=== PATIENT | female | born 1955 | race Caucasian/White ===

== ENCOUNTER 2019-03-30 07:34 | Emergency (ER) | payer OTHER, SELFPAY ==
--- NOTE | ~2019-03-30 | XR_ITS ---
EXAMINATION: XR chest 1V portable DATE: 03/30/2019 09:14 INDICATION: Weakness. TECHNIQUE: A single frontal view of the chest was obtained. COMPARISON: Chest single view 04/23/2015 FINDINGS: There is mild atelectasis at left lung base. No pleural effusion or pneumothorax. The heart size is normal. There are bilateral shoulder arthroplasties. There are changes of posterior fusion p rocedure in cervicothoracic spine. There are changes of vertebroplasty at multiple levels in the spin e. There are surgical clips in the abdomen. IMPRESSION: 1. Mild atelectasis at left lung base. Reviewed, dictated and finalized at location A. CTOR OF PHYSICAL EDUCATION
--- NOTE | ~2019-03-30 | XR_ITS ---
EXAMINATION: XR tibia fibula RT 2V DATE: 03/30/2019 09:14 INDICATION: Right lower leg cellulitis. TECHNIQUE: 2 views of right tibia and fibula on 4 radiographs were obtained. COMPARISON: Right knee radiographs 03/01/2011 FINDINGS: There is a total right knee arthroplasty with patellar resurfacing. There is 8 degrees post erior angulation of tibia with respect to the tibial component. No fracture. No periprosthetic lucenc y to suggest loosening or infection. Other joint spaces are normal. No knee joint effusion. IMPRESSION: 1. Unchanged total right knee arthroplasty. Reviewed, dictated and finalized at location A. ARIAN HEAD
--- NOTE | ~2019-03-30 | US_ITS ---
EXAMINATION: US venous doppler LE RT DATE: 03/30/2019 09:55 INDICATION: Right lower limb pain. TECHNIQUE: Grayscale ultrasound images without and with compression and Doppler ultrasound images of the right lower extremity veins were obtained. COMPARISON: None. FINDINGS: The visualized portions of right common femoral vein, profunda (deep) femoral vein, femoral vein, pop liteal vein, peroneal veins, posterior tibial veins, and greater saphenous vein outflow are patent. IMPRESSION: 1. No deep venous thrombosis. Reviewed, dictated and finalized at location A. S TRAINING REPRESENTATIVE
[2019-03-30 07:29] VITALS: BP 111/85; PULSE 86; RESP 16; TEMP 36.5; O2SAT 97
[2019-03-30 08:00] VITALS: BP 136/76; PULSE 84; RESP 20; O2SAT 99
--- NOTE | 2019-03-30 08:18 | ECG_ITS ---
Measurements Intervals [place] Rate: 86 P: 46 NE: 133 QRS: -33 QRSD: 90 T: 60 QT: 377 QTc: 452 Interpretive Statements SINUS RHYTHM LEFT AXIS DEVIATION BORDERLINE T WAVE ABNORMALITY- ANTERIOR LEADS BASELINE ARTIFACT- I, II, III BORDERLINE ECG Electronically Signed On 03-30-2019 9:28:04 DIRECTOR CAREER SERVICES by Chele Hughes D.O.
--- NOTE | 2019-03-30 08:19 | ECG_ITS ---
Measurements Intervals [place] Rate: 82 P: 48 GA: 143 QRS: 22 QRSD: 87 T: 67 QT: 342 QTc: 401 Interpretive Statements SINUS RHYTHM BORDERLINE T WAVE ABNORMALITY- ANTERIOR LEADS BASELINE ARTIFACT- I, II, III, AVR, AVL, AVF, V4-V5 BORDERLINE ECG Electronically Signed On 03-30-2019 9:28:49 GERIATRICIAN by Chele Hughes D.O.
--- NOTE | 2019-03-30 08:48 | ED.NEUROSD ---
HPI - Neuro Symptoms/Deficit General Chief Complaint: Neuro Symptoms/Deficit Stated Complaint: headache/weakness Time Seen by Provider: 03/30/19 07:39 Source: patient, family (Pt's sister and brother) and RN notes reviewed Mode of arrival: EMS Limitations: no limitations History of Present Illness HPI Narrative: Pt is a 63 y/o female presenting to the ED via EMS c/o shaking. Pt reports she started feeling bad and shaking yesterday per pt's brother. Pt states she has a Hx's of Sz's, but pt's sister at bedside reports the pt continuously shaking, bilateral thigh pain, and throat pain is abnormal for the pt. Pt notes she sees Neurologist Dr. Joselito Guzman for her Sz's and states chronically takes Lamotrigine. Pt's sister also reports the pt experiencing congestion for a few days and RLE erythema, but pt denies N/V or CP. Per sister, the pt has not had a recent medication change, and states the pt has never had this pain before. Pt states she is normally able to ambulate at home. Per sister, the pt's PCP is Dr. Jaffe. Onset (ago): unknown (Yesterday) Timing confirmed by: family member (Brother) History of same: No Associated symptoms: other (Bilateral thigh pain (per sister); throat pain (per sister); shaking; congestion (per sister); RLE erythema (per sister)) Related Data Home Medications Medication Instructions Recorded Confirmed Adult Probiotic 03/30/19 Centrum Silver Women 03/30/19 [place] Calcium-Vitamin D3 03/30/19 aspirin 03/30/19 atorvastatin 03/30/19 citalopram mg 03/30/19 lamotrigine 03/30/19 metronidazole 03/30/19 omeprazole 03/30/19 tofacitinib [Xeljanz XR] mg PO 03/30/19 Allergies Allergy/AdvReac Type Severity Reaction Status Date / Time gold Au 198 Allergy Mild Unknown Verified 03/30/19 08:13 Quinolones Allergy Mild Unknown Verified 03/30/19 08:13 ciprofloxacin [From Cipro] Allergy Unknown Verified 03/30/19 09:17 hydroxychloroquine Allergy Unknown Verified 03/30/19 09:17 sulfasalazine Allergy Unknown Unknown Verified 03/30/19 08:13 leflunomide AdvReac Unknown CONFUSION, Verified 03/30/19 08:13 GI UPSET Sulfa (Sulfonamide AdvReac Unknown NAUSEA Verified 03/30/19 08:13 Antibiotics) Review of Systems Review of Systems: Narrative: CONSTITUTIONAL: Reports shaking. ENT: Reports congestion (per sister). CARDIOVASCULAR: Denies chest pain. GASTROINTESTINAL: Denies nausea or vomiting. SKIN: Reports RLE erythema (per sister). MUSCULOSKELETAL: Reports bilateral thigh pain (per sister) and throat pain (per sister). All systems reviewed & are unremarkable except as noted in HPI and below PMFSH Past Medical History Medical History Anemia Bronchitis Depression Diverticulitis GERD (gastroesophageal reflux disease) History of osteoporosis HLD (hyperlipidemia) HTN (hypertension) Kidney stones Migraine Ovarian cancer Rheumatoid arthritis Seizures UTI (urinary tract infection) Surgical History Surgical History H/O breast augmentation H/O wrist surgery H/O: hysterectomy Hx of bilateral hip replacements Social History Social History Smoking status: Unknown if ever smoked Exam Narrative: Exam Narrative: GENERAL: Well-appearing, well-nourished, and in no acute distress. EYES: EOMI. ENT: Dry mucous membranes. NECK: Supple. CHEST: Clear to auscultation. No respiratory distress. HEART: Regular rate and rhythm. No murmur heard. Normal peripheral pulses. ABDOMEN: Soft, nontender, nondistended, normal active bowel sounds. EXTREMITIES: Spasming of the BLE and BUE. Tenderness to bilateral thighs. SKIN: Warm and dry. Erythema to RLE with [id number] - no vesicles or blisters. NEURO: No focal deficits. Alert and oriented. Tremulous. Course Course Emergency Course: Patient was assessed for tremulous activity, intermittent confusion and possible seizure activity.
[2019-03-30 09:00] VITALS: BP 129/63; PULSE 79; RESP 20; O2SAT 99
[2019-03-30] MEDS: SODIUM CHLORIDE 0.9% IV 1,000 ML 999 ML IV CONT (09:20)
[2019-03-30] MEDS: LORAZEPAM INJ 2 MG/ML VIAL 1 MG IV PUSH (09:24)
[2019-03-30 10:10] LABS: Basophils Percent Auto 0.3 % (0.2-1.2); Eosinophils Percent Auto 0.1 % (0-4.4); Hemoglobin 12.1 g/dL (12.0-15.0); Immature Granulocyte Absolute 0.03 K/mm3 (0.00-0.031); Immature Granulocyte Percent A 0.3 % (0-0.5); Lymphocytes Absolute Auto 0.96 K/mm3 (0.9-3.2); Lymphocytes Percent Auto 9.6 % (18.3-44.2); Mean Corpuscular HGB Conc 31.8 g/dl (32-36); Mean Corpuscular Hemoglobin 29.7 pg (26-34); Mean Corpuscular Volume 93.4 fl (80-100); Mean Platelet Volume 9.2 fl (7.4-10.4); Monocytes Absolute Auto 0.7 K/mm3 (0.1-0.6); Monocytes Percent Auto 6.5 % (2.6-8.5); Neutrophils Absolute Auto 8.3 K/mm3 (1.3-6.7); Neutrophils Percent Auto 83.2 % (45.5-73.1); Platelet Count Result 250 k/mm3 (150-375); Red Blood Count 4.07 M/mm3 (4.2-5.4); Red Cell Distribution Width 13.6 % (11.5-14.5)
[2019-03-30 10:31] LABS: Blood Urea Nitrogen 12 mg/dL (7-17); Calcium 8.2 mg/dL (8.4-10.2); Carbon Dioxide 21 mmol/L (22-30); Chloride 103 mmol/L (98-107); Estimated CRCL calculation 54 ml/min; Estimated Glomerular Filt Rate > 60; Glucose 89 mg/dL (65-105); Potassium 3.7 mmol/L (3.4-5.0); Sodium 134 mmol/L (137-145)
[2019-03-30 10:54] LABS: Erythrocyte Sedimentation Rate 27 mm/hr (0-20)
[2019-03-30 11:01] LABS: Creatine Kinase 65 U/L (30-135)
[2019-03-30 11:10] VITALS: BP 125/65; PULSE 89; RESP 16; O2SAT 95
[2019-03-30 12:13] VITALS: BP 115/68; PULSE 89; RESP 17; O2SAT 95
--- NOTE | 2019-03-30 13:36 | PC.NURSE ---
Attempted to straight cath this pt but was unsuccessful. Per pts sister pt had just wet the bed prior to me coming in .
[2019-03-30] MEDS: CEPHALEXIN 500 MG CAPSULE PO (14:40)
[2019-03-30 14:41] VITALS: BP 115/66; PULSE 79; RESP 14; O2SAT 99
[2019-04-02 19:17] LABS: Lamotrigine Lamictal 10.2 mcg/mL (4.0-18.0)
== END 2019-03-30 15:14 | disposition home or self-care (01) ==
PROVIDERS: Emergency Provider Emergency Medicine
DX: G40.909 Epilepsy, unspecified, not intractable, without status epilepticus (principal); L03.115 Cellulitis of right lower limb; F32.9 Major depressive disorder, single episode, unspecified; K21.9 Gastro-esophageal reflux disease without esophagitis; E78.5 Hyperlipidemia, unspecified; I10 Essential (primary) hypertension; Z87.442 Personal history of urinary calculi; Z85.43 Personal history of malignant neoplasm of ovary; M06.9 Rheumatoid arthritis, unspecified; Z87.440 Personal history of urinary (tract) infections; M81.0 Age-related osteoporosis without current pathological fracture; D64.9 Anemia, unspecified; Z96.643 Presence of artificial hip joint, bilateral; R91.8 Other nonspecific abnormal finding of lung field; Z96.651 Presence of right artificial knee joint; Z79.82 Long term (current) use of aspirin; R94.31 Abnormal electrocardiogram [ECG] [EKG]
CPT/HCPCS: 36415; 71045; 73590; 80048; 80175; 82550; 85025; 85652; 86140; 93005; 93971; 99284; A9270; J0131; J1200; J2060; J7030

== ENCOUNTER 2021-02-16 01:28 | Observation (INO) | payer MEDICARE, SELFPAY ==
[2021-02-16] VITALS (9 sets, daily range): BP systolic 130–145; BP diastolic 61–86; PULSE 65–106; RESP 12–23; TEMP 35.8–36.9; O2SAT 88–100; BMI 22.4
--- NOTE | ~2021-02-16 | CT_ITS ---
EXAMINATION: CT brain wo con DATE: 02/16/2021 13:32 INDICATION: Severe headaches TECHNIQUE: Computed tomography (CT) of the head was performed without intravenous contrast. The mA wa s adjusted according to patient size. Iterative reconstruction technique was employed. Exam dose: 52 9.67 mGy-cm total exam DLP. COMPARISON: 10/15/2014, 12/25/2009 CT brain examinations FINDINGS: There is a subtle streak artifact at the posterior fossa from occipital plate and screws No fracture or bone destruction of the cranial vault is detected. The mastoid air cells and included paranasal sinuses are normally aerated. No fracture or bone destruction of the cranial vault. Vertebral artery and bilateral carotid siphon internal carotid artery calcifications are noted. There is nonspecific diminished attenuation cerebral white matter, likely due to chronic small vessel isch emic change. No intracranial mass lesion or hemorrhage, midline shift or mass effect is evident. No subdural or ep idural hematoma. IMPRESSION: No acute intracranial finding or significant change since 10/15/2014 Reviewed, dictated and finalized at Location [facility]. Reviewed, dictated and finalized at location B. OR QA TESTER IMPRESSION: No acute intracranial finding or significant change since 5
--- NOTE | ~2021-02-16 | XR_ITS ---
EXAMINATION: XR chest 1V portable DATE: 02/16/2021 02:10 INDICATION: Nausea, vomiting, and diarrhea. TECHNIQUE: A single frontal view of the chest was obtained. COMPARISON: Chest single view 03/30/2019, CT abdomen and pelvis 04/23/2015 FINDINGS: A calcified right lung nodule is consistent with old granulomatous disease. No pleural effu darrius or pneumothorax. The heart size is normal. There are bilateral shoulder arthroplasties. There ar e changes of posterior fusion procedure of cervicothoracic spine. IMPRESSION: 1. No acute cardiopulmonary disease. Reviewed, dictated and finalized at location A. GAGE PROCESSING MANAGER
[2021-02-16] MEDS: ONDANSETRON INJ 4 MG/2 ML VIAL IV PUSH ×2 (01:42→05:54)
[2021-02-16] MEDS: LACTATED RINGERS 1,000 ML 999 ML IV CONT (01:42)
--- NOTE | 2021-02-16 01:45 | ED.NAVMDI ---
HPI - Nausea/Vomiting/Diarrhea General Chief complaint: Nausea/Vomiting/Diarrhea Stated complaint: n/v/d x 1 hour Time Seen by Provider: 02/16/21 01:34 Source: patient Mode of arrival: EMS Limitations: no limitations History of Present Illness HPI Narrative: Patient is a 65-year-old female complaining of nausea, vomiting, diarrhea that started 3 days ago. Patient describes her vomitus is nonbilious nonbloody. Patient describes her diarrhea as loose watery, nonbloody. Patient also states that she was having chest discomfort earlier, midsternal, tightness, nonradiating. Patient denies any shortness of breath, abdominal pain, urinary symptoms, fever or chills. Related Data Home Medications Medication Instructions Recorded Confirmed Adult Probiotic 03/30/19 Centrum Silver Women 03/30/19 [place] Calcium-Vitamin D3 03/30/19 aspirin 03/30/19 atorvastatin 03/30/19 citalopram mg 03/30/19 lamotrigine 03/30/19 metronidazole 03/30/19 omeprazole 03/30/19 tofacitinib [Xeljanz XR] mg PO 03/30/19 brivaracetam [Briviact] 50 mg PO BID 02/16/21 duloxetine 30 mg PO DAILY 02/16/21 methylprednisolone 4 mg PO DAILY 02/16/21 [id number] K tablet PO 02/16/21 [Adults Multivitamin] Allergies Allergy/AdvReac Type Severity Reaction Status Date / Time gold Au 198 Allergy Mild Unknown Verified 02/16/21 01:33 Quinolones Allergy Mild Unknown Verified 02/16/21 01:33 ciprofloxacin [From Cipro] Allergy Unknown Other Verified 02/16/21 01:33 hydroxychloroquine Allergy Unknown Other Verified 02/16/21 01:33 sulfasalazine Allergy Unknown Unknown Verified 02/16/21 01:33 leflunomide AdvReac Unknown CONFUSION, Verified 02/16/21 01:33 GI UPSET Sulfa (Sulfonamide AdvReac Unknown NAUSEA Verified 02/16/21 01:33 Antibiotics) Review of Systems Review of Systems: All systems reviewed & are unremarkable except as noted in HPI and below Constitutional: Constitutional: Denies body ache(s), Denies chills, Denies excessive sweating, Denies fatigue, Denies fever(s), Denies headache(s), Denies lethargy, Denies malaise, Denies weakness and Denies weight loss Eyes: Eyes: Denies blurry vision, Denies change in vision and Denies loss of vision ENT: Denies dizziness, Denies ear discharge, Denies headache(s), Denies lip swelling, Denies epistaxis, Denies nasal congestion, Denies neck pain, Denies throat swelling and Denies tongue swelling Cardiovascular: Cardiovascular: Denies diaphoresis, Denies rapid heart rate, Denies edema, Denies irregular heart rhythm, Denies lightheadedness, Denies palpitations, Denies dyspnea and Denies dyspnea on exertion Respiratory: Respiratory: Denies chest congestion, Denies cough, Denies hemoptysis, Denies dyspnea and Denies dyspnea on exertion Gastrointestinal: Gastrointestinal: Denies abdominal pain, Denies melena, Denies hematochezia and Denies hematemesis Musculoskeletal: Musculoskeletal: Denies abnormal gait, Denies deformity, Denies joint swelling, Denies limited range of motion, Denies neck pain and Denies numbness Neurologic: Denies Abnormal speech present, Denies abnormal gait, Denies confusion, Denies dizziness, Denies headache(s), Denies focal weakness, Denies loss of vision, Denies numbness, Denies Other visual disturbances, Denies Sensory deficit (Neuro) and Denies weakness Psychiatric: Psychiatric: Denies confusion, Denies depression, Denies auditory hallucinations, Denies homicidal ideation and Denies suicidal ideation Endocrine: Endocrine: Denies cold intolerance, Denies excessive sweating, Denies fatigue, Denies heat intolerance and Denies palpitations Hematologic/Lymphatic: Hematologic/Lymphatic: Denies easy bleeding and Denies easy bruising Allergic/Immunologic: Allergic/Immunologic: Denies lip swelling, Denies throat swelling and Denies tongue swelling PMFSH Past Medical History Medical History Anemia Bronchitis Depression
[2021-02-16 01:46] LABS: Basophils Absolute Auto 0.1 K/mm3 (0.0-0.1); Basophils Percent Auto 0.5 % (0.2-1.2); Eosinophils Percent Auto 0.2 % (0-4.4); Hematocrit 50.8 % (37.0-47.0); Hemoglobin 16.9 g/dL (12.0-15.0); Immature Granulocyte Absolute 0.06 K/mm3 (0.00-0.031); Immature Granulocyte Percent A 0.4 % (0-0.5); Lymphocytes Absolute Auto 2.16 K/mm3 (0.9-3.2); Lymphocytes Percent Auto 12.6 % (18.3-44.2); Mean Corpuscular HGB Conc 33.3 g/dl (32-36); Mean Corpuscular Hemoglobin 30.4 pg (26-34); Mean Corpuscular Volume 91.4 fl (80-100); Mean Platelet Volume 8.9 fl (7.4-10.4); Monocytes Absolute Auto 1.2 K/mm3 (0.1-0.6); Monocytes Percent Auto 7.1 % (2.6-8.5); Neutrophils Absolute Auto 13.5 K/mm3 (1.3-6.7); Neutrophils Percent Auto 79.2 % (45.5-73.1); Platelet Count Result 499 k/mm3 (150-375); Red Blood Count 5.56 M/mm3 (4.2-5.4); Red Cell Distribution Width 13.5 % (11.5-14.5); White Blood Count 17.1 K/mm3 (4.5-10.0)
[2021-02-16 01:55] LABS: Lipase 186 U/L (23-300)
[2021-02-16 01:56] LABS: Alanine Aminotransferase 54 U/L (4-35); Albumin Level 5.1 g/dL (3.5-5.1); Alkaline Phosphatase 116 U/L (38-126); Anion Gap 18 mmol/L (8-16); Aspartate Amino Transferase 63 U/L (14-36); Bilirubin,Total 0.8 mg/dL (0.2-1.3); Blood Urea Nitrogen 15 mg/dL (7-17); Calcium 10.8 mg/dL (8.4-10.2); Carbon Dioxide 19 mmol/L (22-30); Chloride 104 mmol/L (98-107); Estimated CRCL calculation 53 ml/min; Estimated Glomerular Filt Rate > 60; Glucose 114 mg/dL (65-110); Potassium 4.3 mmol/L (3.4-5.0); Sodium 141 mmol/L (137-145)
[2021-02-16 02:42] LABS: Troponin I < 0.012 ng/mL (0.000-0.034)
[2021-02-16 03:48] LABS: Add Urine Microscopic? YES; Appearance Urine Cloudy (Clear); Bacteria Urine 2+ /hpf; Bilirubin Urine Negative (Negative); Blood Urine 3+ (Negative); Calcium Oxalate Crystals Urine Present /hpf; Color Urine Amber (Yellow); Glucose Urine UA Negative (Negative); Ketones Urine Negative (Negative); Leukocyte Esterase Ur 2+ LEU/UL (Negative); Mucus Urine Heavy /lpf; Nitrate Urine Negative (Negative); Protein Urine 2+ mg/dL (Negative); RBC Urine >75 /hpf (0-2); Specific Grav Ur 1.026 (1.001-1.035); Squamous Epithelial Cell Urine Rare /hpf (Few); WBC Urine 31-50 /hpf
[2021-02-16] MEDS: SODIUM CHLORIDE 0.9% IV 1,000 ML 999 ML IV CONT (06:09)
[2021-02-16 07:54] LABS: Troponin I 0.021 ng/mL (0.000-0.034)
[2021-02-16] MEDS: LACTATED RINGERS 1,000 ML 125 ML IV CONT (08:18)
--- NOTE | 2021-02-16 10:14 | ADMGEN ---
This patient, Babs Parrish, was admitted to [facility] Surg Room 331-02. Patient/family oriented to hospital policies and general routines including ID bracelet, bed and alarms, visiting hours, pain management, procedures, bathroom and other care routines, personal items, smoking policy, room service/diet, and visiting hours. Information on how to activate the Rapid Response Team has been discussed. Patient/Family are encouraged to report perceived risks to care and to ask questions if they do not understand what they are told or what they should do. SPOKE WITH BROTHER ANISA TO HELP ANSWER ADM QUESTIONS
--- NOTE | 2021-02-16 13:09 | PM.IMHP ---
H&P: HPI History of Present Illness Date/Time: 02/16/21 13:09 Chief Complaint: Nausea, vomiting and diarrhea Narrative: Pt admitted with nausea, vomiting and diarrhea as per ED note. Daughter in the room giving history more concerned about her altered state pt is restless getting out of bed, confused statements. Pt has history of seizures and OA. Pt sees neurology doctor at [facility]. Pt had a seizure this morning was given Ativan. Pt is presently complaining of headache, lip looks swollen also ? secondary to seizure. CT head ordered, WCC high continue to follow BC and UC pending. Review of Systems Review of Systems: All systems reviewed & are unremarkable except as noted in HPI and below PMFSH Past Medical History Medical History Anemia Bronchitis Depression Diverticulitis GERD (gastroesophageal reflux disease) History of osteoporosis HLD (hyperlipidemia) HTN (hypertension) Kidney stones Migraine Ovarian cancer Rheumatoid arthritis Seizures UTI (urinary tract infection) Surgical History Surgical History H/O breast augmentation H/O wrist surgery H/O: hysterectomy Hx of bilateral hip replacements Social History Social History Smoking status: Never smoker Alcohol intake: never Substance use: never Spiritual care concerns: No Meds Home Medications and Allergies Home Medications Medication Instructions Recorded Confirmed Type Centrum Silver Women 1 tablet PO DAILY 03/30/19 02/16/21 History aspirin 325 mg PO DAILY 03/30/19 02/16/21 History atorvastatin 80 mg PO DAILY 03/30/19 02/16/21 History citalopram 20 mg PO DAILY 03/30/19 02/16/21 History lamotrigine 100 mg PO USEASDIRECTD 03/30/19 02/16/21 History tofacitinib [Xeljanz XR] 1 mg PO DAILY 03/30/19 02/16/21 History brivaracetam [Briviact] 50 mg PO BID 02/16/21 02/16/21 History duloxetine 30 mg PO BID 02/16/21 02/16/21 History methylprednisolone 4 mg PO DAILY 02/16/21 02/16/21 History Allergies Allergy/AdvReac Type Severity Reaction Status Date / Time gold Au 198 Allergy Mild Unknown Verified 02/16/21 01:33 Quinolones Allergy Mild Unknown Verified 02/16/21 01:33 ciprofloxacin [From Cipro] Allergy Unknown Other Verified 02/16/21 01:33 hydroxychloroquine Allergy Unknown Other Verified 02/16/21 01:33 sulfasalazine Allergy Unknown Unknown Verified 02/16/21 01:33 leflunomide AdvReac Unknown CONFUSION, Verified 02/16/21 01:33 GI UPSET Sulfa (Sulfonamide AdvReac Unknown NAUSEA Verified 02/16/21 01:33 Antibiotics) Vital Signs Vital Signs - 24 hr 02/16/21 01:27 02/16/21 02:30 02/16/21 03:30 Temperature 35.8 C L Pulse Rate 77 65 67 Respiratory Rate 21 H 12 12 Blood Pressure 141/76 H 133/78 133/70 Pulse Oximetry 99 100 99 02/16/21 04:15 02/16/21 05:30 02/16/21 07:40 Temperature Pulse Rate 87 106 H 77 Respiratory Rate 16 23 H 16 Blood Pressure 136/86 145/70 H 142/80 H Pulse Oximetry 99 88 L 100 02/16/21 08:05 Temperature 36.2 C L Pulse Rate 79 Respiratory Rate 18 Blood Pressure 131/71 Pulse Oximetry 95 Exam Const: General: well developed Nutritional Appearance: well nourished HENMT: Head: normocephalic and other (swollen lip ) Eyes: General: appearance normal, both eyes and all related structures Pupils: Equal, round and reactive pupils present Neck: Neck: supple Chest: Chest palpation & inspection: normal inspection of the chest Resp: Effort & Inspection: normal respiratory effort Auscultation: clear to auscultation bilaterally Cardio: Jugular venous distension: no JVD Rhythm: regular rhythm Heart sounds: S1 normal heart sound present and S2 normal heart sound present GI: Inspection: normal to inspection GI Palp: No abdominal tenderness, Yes Soft to palpation and No Tenderness to palpation present (GI) Auscultation: normal bowel so
[2021-02-16 13:45] LABS: Troponin I < 0.012 ng/mL (0.000-0.034)
[2021-02-16] MEDS: LORazepam INJ (*CRX) 2 MG/ML VIAL 0.5 MG IV PUSH (14:02)
[2021-02-16] MEDS: ACETAMINOPHEN 325 MG TABLET 650 MG PO ×2 (14:07→21:02)
[2021-02-16] MEDS: lamoTRIgine 100 MG TABLET PO ×3 (15:32→21:02)
--- NOTE | 2021-02-16 16:37 | WPDNEURCNPN ---
Assessment and Plan Additional Plan patient is being followed by Milton RAMAN for the ongoing seizure disorder has been taking briviact 50 mg b.i.d. with this breakthrough seizure I increase the dosage [id number] twice a day yesterday today the patient looks awake alert communicative and cooperative treatment will be continued as such for the seizure disorder and further adjustment will be made accordingly Consult date: 02/17/21 HPI: Babs Parrish is a 65 year old female admitted to the hospital through the emergency room for the complaints of nausea vomiting and diarrhea of 72 hours duration and with information that patient was taking multiple medication as an outpatient which included adult probiotic aspirin atorvastatin, brain was said 50 mg b.i.d., Loxitane 30 mg daily and methylprednisolone 4 mg daily, in addition she has ongoing history of 1. Depression 2. Diverticulitis 3. GERD 4. Hyperlipidemia 5. Hypertension 6. Renal stone 7. Migraine 8. Ovarian cancer and 9. Rheumatoid arthritis 10. Seizure disorder, evaluation up until now has revealed her to have leukocytosis, neurology consultation has been obtained as per the patient's daughter request because she was concerned about her change in the mental status, place patient was restless, and confused patient does see a neurology DrAziza alcantara and has received Ativan this morning for the ongoing seizure Review of Systems Review of Systems: All systems reviewed & are unremarkable except as noted in HPI and below PMFSH Past Medical History Medical History Anemia Bronchitis Depression Diverticulitis GERD (gastroesophageal reflux disease) History of osteoporosis HLD (hyperlipidemia) HTN (hypertension) Kidney stones Migraine Ovarian cancer Rheumatoid arthritis Seizures UTI (urinary tract infection) Surgical History Surgical History H/O breast augmentation H/O wrist surgery H/O: hysterectomy Hx of bilateral hip replacements Social History Social History Smoking status: Never smoker Alcohol intake: never Substance use: never Spiritual care concerns: No Meds Home Medications and Allergies Home Medications Medication Instructions Recorded Confirmed Type Centrum Silver Women 1 tablet PO DAILY 03/30/19 02/16/21 History aspirin 325 mg PO DAILY 03/30/19 02/16/21 History atorvastatin 80 mg PO DAILY 03/30/19 02/16/21 History citalopram 20 mg PO DAILY 03/30/19 02/16/21 History lamotrigine 100 mg PO USEASDIRECTD 03/30/19 02/16/21 History tofacitinib [Xeljanz XR] 1 mg PO DAILY 03/30/19 02/16/21 History brivaracetam [Briviact] 50 mg PO BID 02/16/21 02/16/21 History duloxetine 30 mg PO BID 02/16/21 02/16/21 History methylprednisolone 4 mg PO DAILY 02/16/21 02/16/21 History Allergies Allergy/AdvReac Type Severity Reaction Status Date / Time gold Au 198 Allergy Mild Unknown Verified 02/16/21 01:33 Quinolones Allergy Mild Unknown Verified 02/16/21 01:33 ciprofloxacin [From Cipro] Allergy Unknown Other Verified 02/16/21 01:33 hydroxychloroquine Allergy Unknown Other Verified 02/16/21 01:33 sulfasalazine Allergy Unknown Unknown Verified 02/16/21 01:33 leflunomide AdvReac Unknown CONFUSION, Verified 02/16/21 01:33 GI UPSET Sulfa (Sulfonamide AdvReac Unknown NAUSEA Verified 02/16/21 01:33 Antibiotics) Vital Signs Vital Signs - 24 hr 02/16/21 01:27 02/16/21 02:30 02/16/21 03:30 Temperature 35.8 C L Pulse Rate 77 65 67 Respiratory Rate 21 H 12 12 Blood Pressure 141/76 H 133/78 133/70 Pulse Oximetry 99 100 99 02/16/21 04:15 02/16/21 05:30 02/16/21 07:40 Temperature Pulse Rate 87 106 H 77 Respiratory Rate 16 23 H 16 Blood Pressure 136/86 145/70 H 142/80 H Pulse Oximetry 99 88 L 100 02/16/21 08:05 02/16/21 14:00 Temperature 36.2 C L 36.9 C Pulse Rate 79 92 Respiratory Rate 18 14 Blood Pressure 131/71
[2021-02-16] MEDS: SACCHAROMYCES BOULARDII 250 MG CAPSULE PO (17:45)
[2021-02-16] MEDS: DULoxetine HCL 30 MG CAPSULE.DR PO (17:45)
[2021-02-16] MEDS: LACTATED RINGERS 1,000 ML 70 ML IV CONT (17:55)
--- NOTE | 2021-02-16 18:31 | PHAR ---
The patient's home med of Brivaracetam [Briviact] 50 MG has been verified.
--- NOTE | 2021-02-16 18:35 | PHAR ---
The patient's home med of Xeljanz xr 11mg has been verified.
[2021-02-17 06:00] VITALS: BP 136/54; PULSE 67; RESP 18; TEMP 36.4; O2SAT 96
[2021-02-17] MEDS: LACTATED RINGERS 1,000 ML 70 ML IV CONT ×2 (06:26→23:32)
[2021-02-17 07:14] LABS: Hematocrit 40.6 % (37.0-47.0); Hemoglobin 13.4 g/dL (12.0-15.0); Mean Corpuscular Hemoglobin 30.4 pg (26-34); Mean Corpuscular Volume 92.1 fl (80-100); Mean Platelet Volume 9.2 fl (7.4-10.4); Platelet Count Result 369 k/mm3 (150-375); Red Blood Count 4.41 M/mm3 (4.2-5.4); Red Cell Distribution Width 13.4 % (11.5-14.5); White Blood Count 7.5 K/mm3 (4.5-10.0)
[2021-02-17 07:19] LABS: Anion Gap 6 mmol/L (8-16); Blood Urea Nitrogen 7 mg/dL (7-17); Calcium 9.1 mg/dL (8.4-10.2); Carbon Dioxide 26 mmol/L (22-30); Chloride 105 mmol/L (98-107); Estimated CRCL calculation 60 ml/min; Estimated Glomerular Filt Rate > 60; Glucose 94 mg/dL (65-110); Potassium 3.8 mmol/L (3.4-5.0); Sodium 137 mmol/L (137-145)
[2021-02-17] MEDS: ATORVASTATIN 40 MG TABLET 80 MG PO (09:23)
[2021-02-17] MEDS: MULTIVITAMINS /C LUTEIN (CENTRUM SILVER) TABLET *BKC 1 TAB PO (09:23)
[2021-02-17] MEDS: CITALOPRAM HYDROBROMIDE 20 MG TABLET PO (09:23)
[2021-02-17] MEDS: SACCHAROMYCES BOULARDII 250 MG CAPSULE PO ×2 (09:23→18:16)
[2021-02-17] MEDS: lamoTRIgine 100 MG TABLET PO ×4 (09:23→21:08)
[2021-02-17] MEDS: DULoxetine HCL 30 MG CAPSULE.DR PO ×2 (09:23→18:16)
--- NOTE | 2021-02-17 10:35 | PM.IMPN ---
Progress Note: A&P Assessment and Plan (1) Acute dehydration: Code(s): E86.0 - Dehydration Status: Acute Assessment and Plan: Continue to hydrate Monitor bmp (2) Nausea & vomiting: Qualifiers: Vomiting type: unspecified Qualified Code(s): R11.2 - Nausea with vomiting, unspecified Code(s): R11.2 - Nausea with vomiting, unspecified Status: Acute Assessment and Plan: Pt has iv Zofran ordered for nausea Continue oral medications Continue clear liquid diet Continue IVF hydration (3) Diarrhea: Qualifiers: Diarrhea type: unspecified type Qualified Code(s): R19.7 - Diarrhea, unspecified Code(s): R19.7 - Diarrhea, unspecified Status: Acute Assessment and Plan: Denies any episodes today Monitor (4) Urinary tract infection: Qualifiers: Hematuria presence: with hematuria Urinary tract infection type: site unspecified Qualified Code(s): N39.0 - Urinary tract infection, site not specified; R31.9 - Hematuria, unspecified Code(s): N39.0 - Urinary tract infection, site not specified Status: Acute Assessment and Plan: Follow UC Continue IVF Continue iv Rocephin WBC improved, wnl today (5) AMS (altered mental status): Code(s): R41.82 - Altered mental status, unspecified Status: Acute Assessment and Plan: Consult neurology CT head with no acute findings ? postictal or metabolic encephalopathy Resumed seizure medications continue iv fluids and iv ABX continue to watch or improvement in mental status (6) Seizures: Code(s): R56.9 - Unspecified convulsions Status: Acute Assessment and Plan: Restart pts seizure medications Consulted neurology for further advice Subjective Date/time seen: 02/17/21 10:35 Review of Systems Review of Systems: All systems reviewed & are unremarkable except as noted in HPI and below Exam Const: General: no acute distress, alert and awake Orientation/consciousness: patient oriented x3 HENMT: Head: normocephalic Ears: hearing grossly normal bilaterally and external ears normal Face and sinus: face symmetric Mouth: Yes lip abnormal (swollen right upper lip) Eyes: EOM: EOMs intact bilaterally Neck: Neck: full ROM, trachea midline and no JVD Resp: Auscultation: clear to auscultation bilaterally Cardio: Jugular venous distension: no JVD Rate: regular rate Rhythm: regular rhythm Heart sounds: S1 normal heart sound present and S2 normal heart sound present GI: Inspection: normal to inspection GI Palp: Yes Soft to palpation Percussion: Yes normal to percussion Auscultation: normal bowel sounds : General: Yes no CVA tenderness Skin: General skin exam: normal color Rashes: no rashes Neuro: General: patient oriented x3 and no focal motor deficits Speech: normal speech Extrem: General: no clubbing, cyanosis or edema Psych: Appearance: grossly normal Affect: normal affect Judgement: Good judgement present (Psych) Objective Data Vital Signs Vital Signs: Vital Signs - 24 hr 02/16/21 14:00 02/16/21 22:00 02/17/21 06:00 Temperature 36.9 C 36.7 C 36.4 C Pulse Rate 92 75 67 Respiratory Rate 14 18 18 Blood Pressure 131/73 130/61 136/54 L Pulse Oximetry 96 95 96 Intake/Output Intake/Output: Intake & Output 02/14/21 02/15/21 02/16/21 02/17/21 23:59 23:59 23:59 23:59 Intake Total 3350 1000 Balance 3350 1000 Meds/Results Medications: Active Medications Generic Name Dose Route Start Last Admin Trade Name Freq PRN Reason Stop Dose Admin Acetaminophen 650 mg 02/16/21 13:55 02/16/21 21:02 Acetaminophen 325 Mg Tablet PO 650 mg Q8H PRN Administration Mild Pain (1-3) or Fever Atorvastatin Calcium 80 mg 02/17/21 09:00 02/17/21 09:23 Atorvastatin 40 Mg Tablet PO 80 mg DAILY MIRACLE Administration Citalopram Hydrobromide 20 mg 02/17/21 09:00 02/17/21 09:23 Citalopram H
[2021-02-17 14:00] VITALS: BP 146/62; PULSE 71; RESP 12; TEMP 36.5; O2SAT 96
--- NOTE | 2021-02-17 16:48 | WPDNEUROLOGY ---
Neurology EEG Report General Information Date of Study: 02/17/21 TEST eeg DIAGNOSIS Seizures CONDITION OF RECORDING awake and drowsy with constant eye movements noted throughout the tracing EEG NUMBER [id number] CLINICAL HISTORY patient reported her family told her she had a seizure yesterday but does not remember what happened does have a history of seizures EEG DESCRIPTION whole record consists of low-voltage 15 to 21 hertz per 2nd beta activity. Low-voltage beta activity seen diffusely admixed with multiple movements and muscle artifacts during drowsiness. Bilateral symmetrical sleep activity seen during sleep again with multiple movement artifacts. Hyperventilation not done. Photic stimulation not done. Non paroxysmal. Nonfocal. Nonlateralizing. IMPRESSION No significant abnormalities noted in this tracing though the tracing is compromised by multiple movements and muscle artifacts clinical correlation recommended
[2021-02-17 22:00] VITALS: BP 132/68; PULSE 67; RESP 18; TEMP 36.1; O2SAT 98
[2021-02-18 06:00] VITALS: BP 140/68; PULSE 67; RESP 18; TEMP 35.9; O2SAT 98
[2021-02-18 07:04] LABS: Hematocrit 37.7 % (37.0-47.0); Hemoglobin 12.4 g/dL (12.0-15.0); Mean Corpuscular HGB Conc 32.9 g/dl (32-36); Mean Corpuscular Hemoglobin 30.6 pg (26-34); Mean Corpuscular Volume 93.1 fl (80-100); Platelet Count Result 325 k/mm3 (150-375); Red Blood Count 4.05 M/mm3 (4.2-5.4); Red Cell Distribution Width 13.2 % (11.5-14.5); White Blood Count 8.3 K/mm3 (4.5-10.0)
[2021-02-18 07:20] LABS: Anion Gap 7 mmol/L (8-16); Blood Urea Nitrogen 6 mg/dL (7-17); Carbon Dioxide 24 mmol/L (22-30); Chloride 104 mmol/L (98-107); Estimated CRCL calculation 60 ml/min; Estimated Glomerular Filt Rate > 60; Glucose 85 mg/dL (65-110); Potassium 3.9 mmol/L (3.4-5.0); Sodium 135 mmol/L (137-145)
[2021-02-18] MEDS: lamoTRIgine 100 MG TABLET PO ×3 (09:29→15:28)
[2021-02-18] MEDS: ATORVASTATIN 40 MG TABLET 80 MG PO (09:29)
[2021-02-18] MEDS: DULoxetine HCL 30 MG CAPSULE.DR PO (09:29)
[2021-02-18] MEDS: SACCHAROMYCES BOULARDII 250 MG CAPSULE PO (09:29)
[2021-02-18] MEDS: CITALOPRAM HYDROBROMIDE 20 MG TABLET PO (09:29)
[2021-02-18] MEDS: MULTIVITAMINS /C LUTEIN (CENTRUM SILVER) TABLET *BKC 1 TAB PO (09:29)
[2021-02-18 14:00] VITALS: BP 154/87; PULSE 84; RESP 14; TEMP 36.2; O2SAT 96
--- NOTE | 2021-02-18 15:19 | PM.DS ---
DS: Admitting Diagnosis Discharge Date 02/18/2021 Admitting Diagnosis breakthrough seizures DS: Discharge Diagnosis Discharge Diagnosis (1) Acute dehydration: Code(s): E86.0 - Dehydration Status: Acute Assessment and Plan: Continue to hydrate Monitor bmp (2) Nausea & vomiting: Qualifiers: Vomiting type: unspecified Qualified Code(s): R11.2 - Nausea with vomiting, unspecified Code(s): R11.2 - Nausea with vomiting, unspecified Status: Acute Assessment and Plan: Pt has iv Zofran ordered for nausea Continue oral medications Continue clear liquid diet Continue IVF hydration (3) Diarrhea: Qualifiers: Diarrhea type: unspecified type Qualified Code(s): R19.7 - Diarrhea, unspecified Code(s): R19.7 - Diarrhea, unspecified Status: Acute Assessment and Plan: Denies any episodes today Monitor (4) Urinary tract infection: Qualifiers: Hematuria presence: with hematuria Urinary tract infection type: site unspecified Qualified Code(s): N39.0 - Urinary tract infection, site not specified; R31.9 - Hematuria, unspecified Code(s): N39.0 - Urinary tract infection, site not specified Status: Acute Assessment and Plan: Follow UC Continue IVF Continue iv Rocephin WBC improved, wnl today (5) AMS (altered mental status): Code(s): R41.82 - Altered mental status, unspecified Status: Acute Assessment and Plan: Consult neurology CT head with no acute findings ? postictal or metabolic encephalopathy Resumed seizure medications continue iv fluids and iv ABX continue to watch or improvement in mental status (6) Seizures: Code(s): R56.9 - Unspecified convulsions Status: Acute Assessment and Plan: Restart pts seizure medications Consulted neurology for further advice DS: Summary Hospital Course Reason for hospitalization: Chief Complaint: Nausea, vomiting and diarrhea Narrative: Pt admitted with nausea, vomiting and diarrhea as per ED note. Daughter in the room giving history more concerned about her altered state pt is restless getting out of bed, confused statements. Pt has history of seizures and OA. Pt sees neurology doctor at [place]. Pt had a seizure this morning was given Ativan. Pt is presently complaining of headache, lip looks swollen also ? secondary to seizure. CT head ordered, [facility] high continue to follow BC and UC pending. Hospital Course: patient with the ongoing seizure disorder has been taking briviact 50 mg b.i.d. and presented emergency department with this breakthrough seizure, patient was seen by neurologist and increased the dosage [id number] twice a day, patient remains clinically stable while in the hospital no seizure episode, communicated with neurology patient to continue higher dose of the medication and follow-up a neurologist patient has possible patient clinically stable discharge the patient home today Status at Discharge Functional status at discharge: independent ambulation Overall status at discharge: patient is back to baseline Time Spent with Patient Time attestation: Total time spent providing and/or coordinating discharge services: Time spent: Greater than 30 minutes DS: Data Data Completed and Pending Labs on day of discharge: Labs from last 24 hours 02/18/21 02/18/21 06:50 06:50 WBC 8.3 RBC 4.05 L Hgb 12.4 Hct 37.7 MCV 93.1 MCH 30.6 MCHC 32.9 RDW 13.2 Plt Count 325 MPV 9.0 Sodium 135 L Potassium 3.9 Chloride 104 Carbon Dioxide 24 Anion Gap 7 L BUN 6 L Creatinine 0.70 Estim Creat Clear Calc 60 Estimated GFR > 60 Glucose 85 Calcium 9.0 Preliminary micro results at discharge 02/16/21 09:13 Blood Culture - Preliminary Blood 02/16/21 09:19 Blood Culture - Preliminary Blood Discharge Plan Discharge Attending physician on discharge: Lena Cam
--- NOTE | 2021-02-18 16:15 | PC.NURSE ---
Patient instructed to take Briviact 100 mg PO BID.Difficulty stopping 50 mg PO within discharge instructions
== END 2021-02-18 17:05 | disposition home or self-care (01) ==
LOC: ANHED 05:46 → ANH3MEDSUR 12:03
PROVIDERS: Nurse Practitioner Adult Health; Admitting Provider Family Medicine; Emergency Provider Emergency Medicine; Visit Provider Family Medicine
DX: E86.0 Dehydration (principal); R11.2 Nausea with vomiting, unspecified; N39.0 Urinary tract infection, site not specified; R41.82 Altered mental status, unspecified; G40.909 Epilepsy, unspecified, not intractable, without status epilepticus; I10 Essential (primary) hypertension; M06.9 Rheumatoid arthritis, unspecified; E78.5 Hyperlipidemia, unspecified; M81.0 Age-related osteoporosis without current pathological fracture; K21.9 Gastro-esophageal reflux disease without esophagitis; D64.9 Anemia, unspecified; F32.9 Major depressive disorder, single episode, unspecified; Z85.43 Personal history of malignant neoplasm of ovary; Z79.82 Long term (current) use of aspirin
CPT/HCPCS: 36415; 70450; 71045; 80048; 80053; 81001; 83690; 84484; 85025; 85027; 87040; 87086; 95816; 96361; 96365; 96375; 96376; 99285; A9270; G0378; J0696; J2060; J2405; J7030; J7120

== ENCOUNTER 2022-11-30 08:18 | Outpatient (CLI) | payer MEDICARE, SELFPAY ==
--- NOTE | ~2022-11-30 | MM_ITS ---
EXAMINATION: MM screening ying BI w marianne HISTORY: Screening mammogram TECHNIQUE: Craniocaudal and mediolateral oblique 3-D tomosynthesis images were obtained and synthetic 2-D images were generated. CAD analysis was submitted and interpreted. COMPARISON: No prior mammogram is available for comparison at this institution. BREAST PARENCHYMAL COMPOSITION: There are scattered areas of fibroglandular density. FINDINGS: There are punctate calcifications in the posterior third of the outer left breast with jamila cent biopsy marker. No suspicious mass, calcification, or architectural distortion are identified in either breast to suggest malignancy. IMPRESSION: 1. No mammographic evidence of malignancy. 2. Recommend routine screening mammography in one year. BI-RADS Category 2: Benign finding(s). Reviewed, dictated and finalized at location A.
== END 2022-11-30 08:19 | disposition home or self-care (01) ==
DX: Z12.31 Encounter for screening mammogram for malignant neoplasm of breast (principal)
CPT/HCPCS: 77063; 77067

== ENCOUNTER 2023-01-03 18:06 | Inpatient (IN) | payer MEDICARE, SELFPAY ==
[2023-01-03] VITALS (21 sets, daily range): BP systolic 101–156; BP diastolic 64–96; PULSE 82–120; RESP 12–23; TEMP 36.4; O2SAT 97
--- NOTE | ~2023-01-03 | XR_ITS ---
MODIFIED ESOPHAGRAM HISTORY: Dysphagia. TECHNIQUE: Modified barium esophagram was performed by speech pathologist under radiologist fluorosco pic guidance. This was recorded on tape. The exam was reviewed on 01/05/2023 16:34 PUSH CONNECTOR ASSEMBLER. The DAP for this procedure was 0.455 Gycm2. Fluoroscopy time is 0.5 minutes. FINDINGS: Lateral projection of the cervical spine demonstrates normal alignment. There are surgica l changes consistent with fusion of the cervical spine and base of skull.. There is normal swallowing function without penetration or aspiration.. IMPRESSION: 1: Normal swallowing function without penetration or aspiration. 2: Please refer to speech pathologist report for additional detail. Reviewed, dictated and finalized at location A. CONNECTOR ASSEMBLER
--- NOTE | ~2023-01-03 | CT_ITS ---
EXAMINATION: CT abd pelvis lumbar w con DATE: 01/03/2023 22:35 INDICATION: N/V/D, upper abd pain, LBP TECHNIQUE: Computed tomography (CT) of the abdomen and pelvis and lumbar spine was performed with 100 mL Omnipaque-350 intravenous contrast. Automated exposure control and iterative reconstruction techn ique were employed. The dose-length product was 559.53 mGy-cm. COMPARISON: CT abdomen pelvis 04/23/2015. FINDINGS: Lower thorax: Subsegmental dependent consolidation in the right lower lobe. Bilateral atelectasis/sca r. Liver: Scattered subcentimeter hypodensities, too small to characterize but most likely represent cys ts or hemangiomas. Biliary/Gallbladder: Mild gallbladder distention. No stones or inflammatory change. No bile duct dila tion. Pancreas: No mass or duct dilation. Spleen: Normal. Adrenals:No mass. Kidneys: Multiple nonobstructing bilateral calculi. Small exophytic simple right midpole cyst. Bilate ral hypodensities too small to characterize but most likely represent cysts. GI tract: Small hiatal hernia. Mild distal esophageal and gastric wall edema. Fluid-filled colon. No small or large bowel dilation. Normal appendix. Diverticulosis without diverticulitis. Mesentery/Peritoneum: No ascites, mass, or free air. Retroperitoneum: No mass. Atherosclerotic abdominal aortic and/or arterial calcifications. 2.8 cm sac cular infrarenal abdominal aortic aneurysm. Pelvis: Pelvic organs are partially obscured by metal artifact. Absent uterus. Soft Tissues: Soft tissues and body wall unremarkable. Extraspinal bones: No acute osseous finding. Partially visualized bilateral hip arthroplasties. Lumbar spine: Vertebroplasty cement at L2 and L3. Old burst fractures at L2 and L3, stable with mild retropulsion. 5 nonrib-bearing lumbar-type vertebral bodies. No fracture or dislocation. Moderate central canal buddy nosis at L3. No severe neural foraminal narrowing. IMPRESSION: Dependent right lower lobe consolidation, may represent atelectasis, infection, or aspiration. Esophagitis/gastritis. Gallbladder hydrops, without cholelithiasis or surrounding inflammatory change. Fluid-filled colon as can be seen with diarrheal illness. 2.8 cm saccular infrarenal abdominal aortic aneurysm. No acute osseous finding in the lumbar spine. Reviewed, dictated and finalized at location K. THERAPY CLINICIAN
--- NOTE | ~2023-01-03 | CT_ITS ---
EXAMINATION: CT brain wo con DATE: 01/04/2023 08:58 INDICATION: Confusion post fall TECHNIQUE: Computed tomography (CT) of the head was performed without intravenous contrast. Sagittal and coronal reconstructions were performed. The mA was adjusted according to patient size. Iterative reconstruction technique was employed. The dose-length product was 605.33 mGy-cm. COMPARISON: head CT dated 02/16/2021 FINDINGS: Evaluation the posterior fossa is moderately limited by metallic streak artifact from vertical jocelyn an d screw fixation of and instrumented cervical and occipital posterior spinal fusion which is more com pletely visualized on the farm agent topogram. No fracture. No acute intracranial hemorrhage, acute infarc tion or abnormal extra axial fluid collection. There is mild scattered white matter hypoattenuation c onsistent with chronic small vessel ischemic disease. Ventricles are normal and symmetric. No mass/m ass effect. Changes of bilateral intraocular lens replacement. The orbits, paranasal sinuses and mast oid air cells are normal. IMPRESSION: 1. No fracture or acute intracranial process. 2. Mild scattered white matter hypoattenuation consistent with chronic small vessel ischemic disease. Reviewed, dictated and finalized at location A. NING DEVELOPMENT DIRECTOR IMPRESSION: 1. No fracture or acute intracranial process. 2. Mild scattered white matter hypoattenuation consistent with chronic small ve ssel ischemic disease.
--- NOTE | ~2023-01-03 | US_ITS ---
Limited Abdominal Sonogram: Real-time sonographic imaging of the right upper quadrant was performed. Clinical History: Fever, abnormal CT COMPARISON: CT scan performed 01/03/2023 Findings: The liver appears normal with no evidence of mass lesion or bile duct dilatation. Main por sterling vein demonstrates normal direction of flow. The gallbladder is markedly distended, and appears no rmal with no evidence of gallstone or wall thickening. The common bile duct measures 5 mm. The visua lized pancreas, aorta, and IVC are unremarkable. Impression: Markedly distended gallbladder, but otherwise no significant findings. Reviewed, dictated and finalized at location M. L POINTER Impression: Markedly distended gallbladder, but otherwise no significant findings.
--- NOTE | ~2023-01-03 | XR_ITS ---
EXAMINATION: XR chest 1V portable Exam Date/Time: 01/03/2023 19:00 RECEIVING SUPERVISOR HISTORY: vomiting, cough, cp, r/o aspiratoin Comparison: 02/16/2021. RESULT: Lines, tubes, and devices: Bilateral shoulder arthroplasties. Partially visualized cervical fusion h ardware. Lungs and pleura: Clear. Cardiomediastinal silhouette: Stable. Other: No acute osseous or upper abdominal finding. IMPRESSION: No acute cardiopulmonary process. Reviewed, dictated and finalized at location K. IVING SUPERVISOR
--- NOTE | 2023-01-03 18:26 | ED.NAVMDI ---
HPI - Nausea/Vomiting/Diarrhea General Chief complaint: Nausea/Vomiting/Diarrhea Stated complaint: N/V/D Time Seen by Provider: 01/03/23 18:26 Source: patient Mode of arrival: EMS Limitations: no limitations History of Present Illness HPI Narrative: Patient is a 67-year-old female who presents the ED via EMS with report of N/V/D. Patient reports she has been ill since around 10am today. Reports persistent nausea, vomiting, diarrhea. Unable to keep down any food or drink. Denies known sick contacts, bad food exposure. Denies fevers. Denies significant abdominal pain upon my evaluation, she did experience some upper abdominal pain around 1 hour ago. She also reports having lower back pain, a frequent cough today, and chest pain which she feels is related to the cough. Denies shortness of breath. Related Data Home Medications Medication Instructions Recorded Confirmed Centrum Silver Women 1 tablet PO DAILY 03/30/19 02/16/21 aspirin 325 mg tablet 325 mg PO DAILY 03/30/19 02/16/21 atorvastatin 80 mg tablet 80 mg PO DAILY 03/30/19 02/16/21 citalopram 10 mg tablet 20 mg PO DAILY 03/30/19 02/16/21 lamotrigine 100 mg tablet 100 mg PO USEASDIRECTD 03/30/19 02/16/21 tofacitinib 11 mg tablet,extended 1 mg PO DAILY 03/30/19 02/16/21 release 24 hr (Xeljanz XR) brivaracetam 50 mg tablet 50 mg PO BID 02/16/21 02/16/21 (Briviact) duloxetine 30 mg capsule,delayed 30 mg PO BID 02/16/21 02/16/21 release sprinkle methylprednisolone 4 mg tablet 4 mg PO DAILY 02/16/21 02/16/21 Allergies Allergy/AdvReac Type Severity Reaction Status Date / Time gold Au 198 Allergy Mild Unknown Verified 02/16/21 01:33 Quinolones Allergy Mild Unknown Verified 02/16/21 01:33 ciprofloxacin [From Cipro] Allergy Unknown Other Verified 02/16/21 01:33 hydroxychloroquine Allergy Unknown Other Verified 02/16/21 01:33 sulfasalazine Allergy Unknown Unknown Verified 02/16/21 01:33 leflunomide AdvReac Unknown CONFUSION, Verified 02/16/21 01:33 GI UPSET Sulfa (Sulfonamide AdvReac Unknown NAUSEA Verified 02/16/21 01:33 Antibiotics) Review of Systems Review of Systems: CONSTITUTIONAL: Denies fever, chills, or sweats. ENT: Denies rhinorrhea, congestion, sore throat. CARDIOVASCULAR: See HPI. RESPIRATORY: See HPI. GASTROINTESTINAL: See HPI. GENITOURINARY: Denies dysuria or hematuria. SKIN: Denies rash or itching. MUSCULOSKELETAL: See HPI. All systems reviewed & are unremarkable except as noted in HPI and below PMFSH Past Medical History Medical History Anemia Bronchitis Depression Diverticulitis GERD (gastroesophageal reflux disease) History of osteoporosis HLD (hyperlipidemia) HTN (hypertension) Kidney stones Migraine Ovarian cancer Rheumatoid arthritis Seizures UTI (urinary tract infection) Surgical History Surgical History H/O breast augmentation H/O wrist surgery H/O: hysterectomy Hx of bilateral hip replacements Social History Social History Smoking status: Never smoker Alcohol intake: never Substance use: never Spiritual care concerns: No Exam Narrative: GENERAL: Ill appearing, appears weak and unwell, visibly shaking in ED bed. HEAD: Normocephalic, atraumatic. NECK: Supple. No adenopathy, no masses. RESPIRATORY: Airway patent, respirations nonlabored. Clear to auscultation bilaterally, no rales, rhonchi, wheezing. CARDIOVASCULAR: Borderline tachycardic with regular rhythm without murmurs, rubs, or gallops. Radial pulses 2+ and equal bilaterally. ABDOMINAL: Soft, no significant focal tenderness throughout abdomen, nondistended. Normoactive BS. MUSCULOSKELETAL: Moves all extremities. Strength/ROM intact without gross deformities. No significant midline thoracic or lumbar spinal tenderness. No palpable bony deformities. Deformities noted to
--- NOTE | 2023-01-03 18:37 | ECG_ITS ---
Measurements Intervals [place] Rate: 83 P: 53 SD: 146 QRS: -22 QRSD: 85 T: 91 QT: 372 QTc: 438 Interpretive Statements SINUS RHYTHM BORDERLINE ST-T WAVE ABNORMALITY- DIFFUSE LEADS BASELINE ARTIFACT- I, II, III, AVR, AVL, AVF, V4-V6 BORDERLINE ECG NO PREVIOUS ECG AVAILABLE FOR COMPARISON Electronically Signed On 01-03-2023 20:11:04 SECOND GRADE TEACHER by Chele Hughes D.O.
--- NOTE | 2023-01-03 19:15 | PC.NURSE ---
assumed care of pt. Report from EUSEBIA Wu. Pt resting quietly per cart. C/o nausea. IV to be attempted.
[2023-01-03] MEDS: ONDANSETRON INJ 4 MG/2 ML VIAL IV PUSH ×2 (19:29→22:01)
[2023-01-03] MEDS: SODIUM CHLORIDE 0.9% IV 1,000 ML 999 ML IV CONT ×2 (19:29→22:01)
--- NOTE | 2023-01-03 20:00 | PC.NURSE ---
Straight cathed for urine sample. Pt incontinent of light brown diarrhea urine. Pt cleaned and new diaper placed.
[2023-01-03 20:05] LABS: Lactic Acid Reflex 4.1 mmol/L (0.7-2.0)
[2023-01-03 20:18] LABS: Basophils Absolute Auto 0.1 K/mm3 (0.0-0.1); Basophils Percent Auto 0.7 % (0.2-1.2); Eosinophils Percent Auto 0.2 % (0-4.4); Hemoglobin 16.3 g/dL (12.0-15.0); Immature Granulocyte Absolute 0.04 K/mm3 (0.00-0.031); Immature Granulocyte Percent A 0.4 % (0-0.5); Lymphocytes Absolute Auto 0.26 K/mm3 (0.9-3.2); Lymphocytes Percent Auto 2.4 % (18.3-44.2); Mean Corpuscular HGB Conc 30.8 g/dl (32-36); Mean Corpuscular Hemoglobin 30.5 pg (26-34); Mean Corpuscular Volume 99.1 fl (80-100); Monocytes Absolute Auto 0.4 K/mm3 (0.1-0.6); Neutrophils Absolute Auto 9.9 K/mm3 (1.3-6.7); Neutrophils Percent Auto 92.3 % (45.5-73.1); Platelet Count Result 302 k/mm3 (150-375); Red Blood Count 5.35 M/mm3 (4.2-5.4); Red Cell Distribution Width 14.2 % (11.5-14.5); White Blood Count 10.7 K/mm3 (4.5-10.0)
[2023-01-03 20:22] LABS: Appearance Urine Turbid (Clear); Bacteria Urine None Seen /hpf; Bilirubin Urine 2+ (Negative); Blood Urine 1+ (Negative); Calcium Oxalate Crystals Urine Present /hpf; Color Urine Dark Yellow (Yellow); Glucose Urine UA Negative (Negative); Hyaline Casts Urine Present /lpf; Ketones Urine 1+ mg/dL (Negative); Leukocyte Esterase Ur Trace LEU/UL (Negative); Mucus Urine Present /lpf; Nitrate Urine Negative (Negative); Non Pathogenic Casts >20; Protein Urine 3+ mg/dL (Negative); Specific Grav Ur 1.028 (1.001-1.035); Squamous Epithelial Cell Urine Few /hpf (Few); WBC Urine 0-5 /hpf
[2023-01-03 20:25] LABS: Add Urine Microscopic? YES
[2023-01-03 20:29] LABS: Influenza A QL RT-PCR Negative (Negative); Influenza B QL RT-PCR Negative (Negative); SARS-CoV-2 RNA PCR Negative (Negative)
[2023-01-03 20:43] LABS: Troponin I < 0.012 ng/mL (0.000-0.034)
[2023-01-03] MEDS: MORPHINE SULFATE (*CRX) 4 MG/ML INJ IV PUSH (22:01)
[2023-01-03 22:13] LABS: Alanine Aminotransferase 60 U/L (6-35); Albumin Level 4.9 g/dL (3.5-5.1); Alkaline Phosphatase 75 U/L (38-126); Anion Gap 15 mmol/L (8-16); Aspartate Amino Transferase 56 U/L (14-36); Bilirubin,Total 0.9 mg/dL (0.2-1.3); Blood Urea Nitrogen 25 mg/dL (7-17); Calcium 9.6 mg/dL (8.4-10.2); Carbon Dioxide 18 mmol/L (22-30); Chloride 107 mmol/L (98-107); Estimated CRCL calculation 38 ml/min; Estimated Glomerular Filt Rate 50; Glucose 119 mg/dL (65-110); Lipase 123 U/L (23-300); Potassium 4.1 mmol/L (3.4-5.0); Sodium 140 mmol/L (137-145)
[2023-01-03 22:50] LABS: Reflex Lactic Acid Yes or No Add Lactic
--- NOTE | 2023-01-03 23:49 | PC.NURSE ---
Pt up to [facility] for urine.
[2023-01-03 23:52] LABS: Lactic Acid 1.5 mmol/L (0.7-2.0)
[2023-01-04] VITALS (34 sets, daily range): BP systolic 91–136; BP diastolic 45–108; PULSE 80–117; RESP 13–23; TEMP 36.9–37.5; O2SAT 82–100; BMI 24.4
--- NOTE | 2023-01-04 | ECHO_ITS ---
Patient Info Name: Babs Parrish Age: 67 years : 1955 Gender: Female Ht: 63 in Wt: 137 lbs BSA: 1.67 m2 HR: 78 bpm BP: 91 / 51 mmHg Heart Rhythm: Sinus Rhythm Technical Quality: Fair Exam Date: 01/04/2023 2:21 PM Exam Location: Echo Lab Exam Room: 241 Patient Status: Inpatient Admit Date: 01/04/2023 Staff Ordering Physician: Lyn Villarreal PA-C Retail Shift Leader: Yesi Keen RDCS Attending Provider: Bud Sylvester MD Referring Physician: Phil ORTIZ; Exam Type: CA echo doppler color flow Study Info Indications - syncope Complete two-dimensional, color flow and Doppler transthoracic echocardiogram is performed. Summary 1. Complete two-dimensional, color flow and Doppler transthoracic echocardiogram is performed. 2. Left ventricular chamber dimension is normal. 3. Left ventricular systolic function is normal, estimated at >70%. 4. The left ventricular diastolic function is grade I diastolic dysfunction. 5. Right ventricular systolic function is normal. 6. There is trace mitral valve regurgitation. 7. There is trace tricuspid valve regurgitation. Left Ventricle Left ventricular chamber dimension is normal. Left ventricular systolic function is normal, estimated at >70%. There is no increased left ventricular wall thickness. The left ventricular diastolic function is grade I diastolic dysfunction. Right Ventricle Right ventricular chamber dimension is normal. Right ventricular systolic function is normal. Left Atria Left atrial chamber dimension is normal. Right Atria Right atrial chamber dimension is normal. Atrial Septum Intact interatrial septum visualized by color flow imaging. Aortic Valve The aortic valve is probable trileaflet. There is no aortic valve stenosis. There is no aortic valve regurgitation. There is moderate aortic valve calcification. Pulmonic Valve The pulmonic valve is not well visualized. Mitral Valve There is trace mitral valve regurgitation. Tricuspid Valve There is trace tricuspid valve regurgitation. Pericardium/Pleural There is no pericardial effusion. Inferior Vena Cava Normal inferior vena cava with >50% collapse upon inspiration consistent with normal right atrial pressure, 3 mmHg. Aorta The aortic root size at the sinus of Valsalva is normal. Left Ventricular Outflow Tract Name Value Normal LVOT 2D LVOT Diameter 2.0 cm LVOT Doppler LVOT Peak Gradient 4 mmHg LVOT Mean Gradient 3 mmHg LVOT VTI 19 cm LVOT VTI/AV VTI Ratio 1.0 LVOT Stroke Volume 57 ml LVOT CO 15.0 l/min LVOT CI 9.0 l/min/m2 Pulmonic Valve Name Value Normal PV Doppler PV Peak Gradient 2 mmHg Mitral Valve
[2023-01-04 00:40] LABS: Creatine Kinase 82 U/L (30-135)
[2023-01-04] MEDS: PIPERACILLN/TAZ 3.375GM/NS50ML 3.375 GM/50 ML BAG IVPB ×5 (00:47→23:24)
[2023-01-04] MEDS: ACETAMINOPHEN 500 MG TABLET 1000 MG PO (00:51)
[2023-01-04] MEDS: DEXTROSE 5%/0.9% SOD CHL 1,000 ML 100 ML IV CONT ×3 (01:24→18:06)
[2023-01-04 02:57] LABS: Glucose Point of Care 163 mg/dl (65-105)
--- NOTE | 2023-01-04 03:00 | PC.NURSE ---
Pt brought to room 241 by this RN. Was responsive and verbal in room prior to leaving department. Pt arrives to 241 and is attempting to crawl out of bed, diaphoretic and not responding to verbal. Floor staff at bedside. BS checked and around 160. BP improved from previous. O2 sats found to be 81%. Placed on NRB at 15L. Pt beginning to respond to painful stimulus, but still not speaking. Admitting physician at bedside. Left in care of floor staff, warehouse operations manager and admitting physician.
--- NOTE | 2023-01-04 03:26 | ADMGEN ---
This patient, Babs Parrish, was admitted to 2 Medical Room 241-01. Patient/family oriented to hospital policies and general routines including ID bracelet, bed and alarms, visiting hours, pain management, procedures, bathroom and other care routines, personal items, smoking policy, room service/diet, and visiting hours. Information on how to activate the Rapid Response Team has been discussed. Patient/Family are encouraged to report perceived risks to care and to ask questions if they do not understand what they are told or what they should do.
--- NOTE | 2023-01-04 03:26 | PC.NURSE ---
Pt arrived to floor at 0245. When transporting via stretcher to room 240 patient became confused and nonverbal outside of room. Patient observed by this nurse attempting to leave stretcher and did not follow commands, within one minute of pulling patient back and up in the stretcher patient developed unresponsiveness and diaphoresis. Patient would briefly open eyes to touch and light pain only. cell feed department supervisor Maria G on the floor at time of incident arrived at bedside with charge nurse Rojo who assisted transporting nurse and myself with transfer of patient from stretcher to bed. Dr Sylvester notified at that time of patient condition change and arrived to bedside within minutes. Pt blood sugar reading was 163 and oxygen saturations were 82% on room air. Patient was placed on non-rebreather for several minutes until O2 sats maintained 100%, patient then placed on 5L nasal canula. Patient exhibited eyes open and pulling away when quickly removing telemetry strips, remained non verbal and unable to follow commands. Pt vitals recorded at 0245 reflect vitals taken when provider arrived to bedside. Supplemental oxygen and fluid orders received at bedside, no additional orders given. Provider left bedside at 0305 as patient exhibited stable vitals and unchanged neuro status. Patient became responsive around 0320, patient opened eyes to voice and alert to self only, patient able to follow commands and verbalized understanding when situation was explained to her. Patient resting comfortably in bed when this nurse left bedside. Patient medical history acquired by discharge planner Gabby via telephone from patients sister, Madina Ritchie, as patient still exhibiting confusion and disorientation. Med list found with patient belongings and confirmed accurate by Madina Ritchie.
--- NOTE | 2023-01-04 04:00 | PC.NURSE ---
Dr. Sylvester notified pt family states that patient fell earlier today, and that patient confirmed she did fall in the shower earlier today and hit her head. No lacerations or swelling noted and patient denies any head pain at this time. Patient provided mixed history when questioned about loss of consciousness after falling, first stating she did not remember anything after falling then stating she did remember everything that happened after and only does not have memory of episode of unresponsiveness on arrival to floor.
[2023-01-04 08:05] LABS: Basophils Absolute Auto 0.1 K/mm3 (0.0-0.1); Basophils Percent Auto 0.9 % (0.2-1.2); Eosinophils Absolute Auto 0.1 K/mm3 (0-0.3); Eosinophils Percent Auto 0.8 % (0-4.4); Hematocrit 43.2 % (37.0-47.0); Hemoglobin 12.8 g/dL (12.0-15.0); Immature Granulocyte Absolute 0.05 K/mm3 (0.00-0.031); Immature Granulocyte Percent A 0.4 % (0-0.5); Lymphocytes Percent Auto 1.6 % (18.3-44.2); Mean Corpuscular HGB Conc 29.6 g/dl (32-36); Mean Corpuscular Hemoglobin 30.2 pg (26-34); Mean Corpuscular Volume 101.9 fl (80-100); Mean Platelet Volume 9.3 fl (7.4-10.4); Monocytes Absolute Auto 0.6 K/mm3 (0.1-0.6); Neutrophils Absolute Auto 11.4 K/mm3 (1.3-6.7); Neutrophils Percent Auto 91.3 % (45.5-73.1); Platelet Count Result 241 k/mm3 (150-375); Red Blood Count 4.24 M/mm3 (4.2-5.4); Red Cell Distribution Width 14.6 % (11.5-14.5); White Blood Count 12.5 K/mm3 (4.5-10.0)
[2023-01-04 08:24] LABS: Alanine Aminotransferase 42 U/L (6-35); Albumin Level 3.2 g/dL (3.5-5.1); Alkaline Phosphatase 35 U/L (38-126); Anion Gap 9 mmol/L (8-16); Aspartate Amino Transferase 48 U/L (14-36); Bilirubin,Total 0.8 mg/dL (0.2-1.3); Blood Urea Nitrogen 25 mg/dL (7-17); Calcium 7.6 mg/dL (8.4-10.2); Carbon Dioxide 16 mmol/L (22-30); Chloride 110 mmol/L (98-107); Estimated CRCL calculation 44 ml/min; Estimated Glomerular Filt Rate > 60; Glucose 124 mg/dL (65-110); Potassium 4.2 mmol/L (3.4-5.0); Sodium 135 mmol/L (137-145)
--- NOTE | 2023-01-04 09:06 | PCSTNOTE ---
Please refer to the Bedside Swallow Evaluation in the EMR. Please note, silent aspiration cannot be ruled out at bedside.
[2023-01-04] MEDS: levETIRAcetam 1000MG/NACL100ML 1,000 MG/100 ML BAG 400 MG IVPB ×2 (09:51→22:22)
[2023-01-04 10:25] LABS: Lactic Acid Reflex 2.5 mmol/L (0.7-2.0)
[2023-01-04 10:42] LABS: IFOB Positive Control Positive; Immunochemical Fecal Occult Bl Positive (N)
[2023-01-04 10:51] LABS: Toxigenic C. Diff NEGATIVE (NEGATIVE)
--- NOTE | 2023-01-04 11:22 | PC.NURSE ---
At approximately 0930 patient transporter called for help and stated patient became nonverbal, blank staring, and pt's right arm exhibited abnormal movements . Pt also became incontinent of stool. Pt has history of seizures and is on P.O. medication, but has had frequent vomiting at home. Lyn Villarreal was notified and ordered IV keppra and PRN Ativan for seizure activity. Pt remains confused/drowsy post seizure. Pt had similar episode early this AM when she was just arriving to floor.
--- NOTE | 2023-01-04 11:42 | PHAR ---
HOME MED: * USE FROM HOME * Brivaracetam [Briviact] 100 mg Tablet TAKE ONE TABLET BY MOUTH ONCE DAILY AT BEDTIME, AND ONE HALF TABLET IN THE MORNING.
--- NOTE | 2023-01-04 11:49 | PHAR ---
HOME MED: * HOME MED *: Tofacitinib [Xeljanz Xr] 11 mg tablet extended release 24 hr TAKE ONE TABLET BY MOUTH DAILY
[2023-01-04 13:12] LABS: Reflex Lactic Acid Yes or No Add Lactic
--- NOTE | 2023-01-04 14:50 | WPDNEURCNPN ---
Consult date: 01/04/23 HPI: Babs Parrish is a 67 year old female Has been admitted to the hospital through the emergency room where she presented with the complaints of nausea vomiting since 10:00 a.m. along with the diarrhea but with no history of a sore fever she had been taking multiple medications at home including aspirin 325mg daily, atorvastatin 80mg daily, citalopram 20mg daily, lamotrigine 100mg and [place] of acet[place] am 50mg twice a day in addition to duloxetine 30mg b.i.d. and methylprednisolone 4mg daily, reportedly she is allergic to 0 multiple medications as outlined, by history she has history of depression, hypertension, migraine, rheumatoid arthritis, and seizures. She has undergone multiple surgeries as outlined she has never smoker never alcohol intaker initial exam in the emergency room documented her to have no focal neurological deficit, her vital signs were normal she was afebrile, CBC with hemoglobin 10.7 electrolytes normal BUN 25 and her lactic acid was 4.1, chest x-ray negative CT of the chest documented right lower lobe consolidation she was also documented to have 2.8cm saccular infrarenal abdominal aortic aneurysm and she has been admitted for the gastroenteritis with dehydration and sepsis with aspiration pneumonia. At present she is having the echocardiogram. [facility] Past Medical History Medical History Anemia Bronchitis Depression Diverticulitis GERD (gastroesophageal reflux disease) History of osteoporosis HLD (hyperlipidemia) HTN (hypertension) Kidney stones Migraine Ovarian cancer Rheumatoid arthritis Seizures UTI (urinary tract infection) Surgical History Surgical History H/O breast augmentation H/O wrist surgery H/O: hysterectomy Hx of bilateral hip replacements Family History Family History (Updated 01/04/23 @ 03:47 by Kallie Mendoza RN) Mother Diabetes mellitus Father Heart disease Social History Social History Smoking status: Never smoker Alcohol intake: never Substance use: never Spiritual care concerns: No Meds Home Medications and Allergies Home Medications Medication Instructions Recorded Confirmed Type Centrum Silver Women 1 tablet PO DAILY 03/30/19 01/04/23 History aspirin 325 mg tablet 325 mg PO DAILY 03/30/19 01/04/23 History atorvastatin 80 mg tablet 80 mg PO DAILY 03/30/19 01/04/23 History citalopram 10 mg tablet 20 mg PO DAILY 03/30/19 01/04/23 History lamotrigine 100 mg tablet 100 mg PO USEASDIRECTD 03/30/19 01/04/23 History tofacitinib 11 mg tablet,extended 11 mg PO DAILY 03/30/19 01/04/23 History release 24 hr (Xeljanz XR) brivaracetam 50 mg tablet 150 mg PO QAM 02/16/21 01/04/23 History (Briviact) methylprednisolone 4 mg tablet 50 mg PO DAILY 02/16/21 01/04/23 History brivaracetam 100 mg tablet 100 mg PO HS 01/04/23 01/04/23 History (Briviact) Allergies Allergy/AdvReac Type Severity Reaction Status Date / Time gold Au 198 Allergy Mild Unknown Verified 02/16/21 01:33 Quinolones Allergy Mild Unknown Verified 02/16/21 01:33 ciprofloxacin [From Cipro] Allergy Unknown Other Verified 02/16/21 01:33 hydroxychloroquine Allergy Unknown Other Verified 02/16/21 01:33 sulfasalazine Allergy Unknown Unknown Verified 02/16/21 01:33 leflunomide AdvReac Unknown CONFUSION, Verified 02/16/21 01:33 GI UPSET Sulfa (Sulfonamide AdvReac Unknown NAUSEA Verified 02/16/21 01:33 Antibiotics) Vital Signs Vital Signs - 24 hr 01/03/23 18:15 01/03/23 19:09 01/03/23 20:36 Temperature 36.4 C L Pulse Rate 82 90 97 Respiratory Rate 18 12 Blood Pressure 142/85 H 103/64 Pulse Oximetry 97 Oxygen Delivery Room Air Oxygen Flow Rate Fraction of Inspired Oxygen 01/03/23 20:45 01/03/23 21:00 01/03/23 21:01 Temperature Pulse Rate 100 97 97 Respi
[2023-01-04 14:55] LABS: Lactic Acid 1.7 mmol/L (0.7-2.0)
--- NOTE | 2023-01-04 15:05 | PM.IMHP ---
H&P: HPI History of Present Illness Date/Time: 01/04/23 15:05 Chief Complaint: nausea, vomiting, diarrhea Narrative: This is a 67-year-old female with past medical history of seizure disorder, rheumatoid arthritis, hypertension, hyperlipidemia and osteoporosis the presented to ED on 01/03/2023 due to nausea, vomiting and diarrhea. Patient is not a great historian and history mostly taken from family members and ED notes. According to family patient had been having the symptoms since the weekend (2-3 days prior). upon presentation her vital signs are stable, she is afebrile with normal abdominal exam. She was found to have elevated white blood cell count of 10.7, elevated hemoglobin of 16.3, bicarb of 18 , creatinine of 1.1. EKG did not reveal any ischemic changes. Troponin negative. Chest x-ray without acute cardiopulmonary abnormality. CT abdomen pelvis showing right lower lobe consolidation, esophagitis/gastritis, fluid-filled colon that could be seen with diarrheal illness and 2.8 cm saccular infrarenal abdominal aortic aneurysm. Admitted for further workup of nausea vomiting and diarrhea. I was informed by the nurse that overnight patient had an unresponsive episode. Rapid response was not called due to patient soon coming to after Doctor Arrived on scene. She was found to have hypoxia and was started on oxygen. Head CT Ordered and revealed no acute intracranial process. Patient had subsequent unresponsive episode when I was in the room with hand twitching present. It appeared that patient was having a seizure. She is given 1 dose of Keppra. Patient likely was unable to keep down her seizure medication during the days leading up to hospitalization because of the vomiting. Neurology consulted. REPLACED BY [facility] Past Medical History Medical History Anemia Bronchitis Depression Diverticulitis GERD (gastroesophageal reflux disease) History of osteoporosis HLD (hyperlipidemia) HTN (hypertension) Kidney stones Migraine Ovarian cancer Rheumatoid arthritis Seizures UTI (urinary tract infection) Surgical History Surgical History H/O breast augmentation H/O wrist surgery H/O: hysterectomy Hx of bilateral hip replacements Family History Family History (Updated 01/04/23 @ 03:47 by Kallie Mendoza RN) Mother Diabetes mellitus Father Heart disease Social History Social History Smoking status: Never smoker Alcohol intake: never Substance use: never Spiritual care concerns: No Meds Home Medications and Allergies Home Medications Medication Instructions Recorded Confirmed Type Centrum Silver Women 1 tablet PO DAILY 03/30/19 01/04/23 History aspirin 325 mg tablet 325 mg PO DAILY 03/30/19 01/04/23 History atorvastatin 80 mg tablet 80 mg PO DAILY 03/30/19 01/04/23 History citalopram 10 mg tablet 20 mg PO DAILY 03/30/19 01/04/23 History lamotrigine 100 mg tablet 100 mg PO USEASDIRECTD 03/30/19 01/04/23 History tofacitinib 11 mg tablet,extended 11 mg PO DAILY 03/30/19 01/04/23 History release 24 hr (Xeljanz XR) brivaracetam 50 mg tablet 150 mg PO QAM 02/16/21 01/04/23 History (Briviact) methylprednisolone 4 mg tablet 50 mg PO DAILY 02/16/21 01/04/23 History brivaracetam 100 mg tablet 100 mg PO HS 01/04/23 01/04/23 History (Briviact) Allergies Allergy/AdvReac Type Severity Reaction Status Date / Time gold Au 198 Allergy Mild Unknown Verified 02/16/21 01:33 Quinolones Allergy Mild Unknown Verified 02/16/21 01:33 ciprofloxacin [From Cipro] Allergy Unknown Other Verified 02/16/21 01:33 hydroxychloroquine Allergy Unknown Other Verified 02/16/21 01:33 sulfasalazine Allergy Unknown Unknown Verified 02/16/21 01:33 leflunomide AdvReac Unknown CONFUSION, Verified 02/16/21 01:33 GI UPSET Sulfa (Sulfonamide AdvReac Unknown NAUSEA V
[2023-01-04 15:53] LABS: Hematocrit 39.4 % (37.0-47.0); Hemoglobin 12.3 g/dL (12.0-15.0)
[2023-01-04] MEDS: diphenhydrAMINE HCl INJ 50 MG/ML VIAL 25 MG IV PUSH (16:56)
[2023-01-04] MEDS: METOCLOPRAMIDE HCL INJ 10 MG/2 ML VIAL IV PUSH (16:57)
[2023-01-04] MEDS: PANTOPRAZOLE SODIUM IV 40 MG VIAL IV PUSH (21:42)
[2023-01-04] MEDS: HYDROmorphone HCL INJ (*CRX) 1 MG/ML SYR 0.5 MG IV PUSH (23:18)
[2023-01-05] VITALS (13 sets, daily range): BP systolic 129–140; BP diastolic 62–68; PULSE 68–93; RESP 17–18; TEMP 37.1–37.8; O2SAT 96–97
[2023-01-05 05:11] LABS: Basophils Percent Auto 0.2 % (0.2-1.2); Eosinophils Percent Auto 0.1 % (0-4.4); Hematocrit 40.2 % (37.0-47.0); Hemoglobin 12.6 g/dL (12.0-15.0); Immature Granulocyte Absolute 0.05 K/mm3 (0.00-0.031); Immature Granulocyte Percent A 0.6 % (0-0.5); Lymphocytes Absolute Auto 0.42 K/mm3 (0.9-3.2); Lymphocytes Percent Auto 4.9 % (18.3-44.2); Mean Corpuscular HGB Conc 31.3 g/dl (32-36); Mean Corpuscular Hemoglobin 30.6 pg (26-34); Mean Corpuscular Volume 97.6 fl (80-100); Mean Platelet Volume 9.6 fl (7.4-10.4); Monocytes Absolute Auto 0.6 K/mm3 (0.1-0.6); Neutrophils Absolute Auto 7.4 K/mm3 (1.3-6.7); Neutrophils Percent Auto 87.2 % (45.5-73.1); Platelet Count Result 220 k/mm3 (150-375); Red Blood Count 4.12 M/mm3 (4.2-5.4); Red Cell Distribution Width 14.4 % (11.5-14.5); White Blood Count 8.5 K/mm3 (4.5-10.0)
[2023-01-05 05:17] LABS: Alanine Aminotransferase 44 U/L (6-35); Albumin Level 3.3 g/dL (3.5-5.1); Alkaline Phosphatase 42 U/L (38-126); Anion Gap 1 mmol/L (8-16); Aspartate Amino Transferase 55 U/L (14-36); Bilirubin,Total 0.5 mg/dL (0.2-1.3); Blood Urea Nitrogen 9 mg/dL (7-17); Calcium 7.6 mg/dL (8.4-10.2); Carbon Dioxide 23 mmol/L (22-30); Chloride 109 mmol/L (98-107); Estimated CRCL calculation 56 ml/min; Estimated Glomerular Filt Rate > 60; Glucose 109 mg/dL (65-110); Potassium 3.1 mmol/L (3.4-5.0); Sodium 133 mmol/L (137-145)
[2023-01-05] MEDS: PIPERACILLN/TAZ 3.375GM/NS50ML 3.375 GM/50 ML BAG IVPB ×3 (05:39→17:51)
[2023-01-05] MEDS: DEXTROSE 5%/0.9% SOD CHL 1,000 ML 100 ML IV CONT (05:39)
[2023-01-05] MEDS: POTASSIUM CHLORIDE INJ 40 MEQ in SODIUM CHLORIDE 0.9% IV 500 ML 130 MEQ IVPB (07:36)
[2023-01-05] MEDS: levETIRAcetam 500MG/NACL 100ML 500 MG/100 ML BAG 400 MG IVPB (08:05)
[2023-01-05] MEDS: lamoTRIgine 50 MG TABLET PO (08:58)
[2023-01-05] MEDS: CITALOPRAM HYDROBROMIDE 20 MG TABLET PO (08:58)
[2023-01-05] MEDS: PANTOPRAZOLE SODIUM IV 40 MG VIAL IV PUSH ×2 (09:03→22:11)
--- NOTE | 2023-01-05 11:20 | WPDNEUROPN ---
Progress Note: A&P Assessment and Plan (1) Gastroenteritis: Code(s): K52.9 - Noninfective gastroenteritis and colitis, unspecified Status: Acute (2) Dehydration: Code(s): E86.0 - Dehydration Status: Acute (3) Seizures: Code(s): R56.9 - Unspecified convulsions Status: Acute Plan Ms. Parrish is a 67 year old female with a history of epilepsy presenting with intractable vomiting, diarrhea. Course complicated by several breakthrough seizures during admission, that seem to have occured in the setting of missed medications vs provoked by illness. Will hold off on any adjustments to her anti-seizure medications. She should follow-up with her Neurologist at [facility]. We discussed no driving until seizure free for at least 6 months, Subjective Date/time seen: 01/05/23 11:20 Interval history: Ms. Gutierrez is a 67 year old female with a history of epilepsy, RA, HTN, HLD who presented on 01/03 due to intractable vomiting and diarrhea. Patient was seen in the ED initially and admitted for dehydration While she was hospitalized, she had two unresponsive episodes, one of which had witnessed hand twitching. She was given a dose of Keppra. CT head was obtained which did not show any acute process. Patient takes Briviact 150/100mg and Lamictal 100/50mg. She sees a Neurologist at [facility]. She started having seizures about 10 years ago. She reports that she missed her morning dose of both Briviact and Lamictal on the day prior to admission. Patient reports that she has breakthrough seizures about every 6 months or so. Review of Systems Constitutional: Constitutional: Denies chills, Denies fever(s) and Denies weight loss Eyes: Eyes: Denies diplopia and Denies loss of vision ENT: Denies dizziness, Denies hearing loss and Denies tinnitus Cardiovascular: Cardiovascular: Denies chest pain, Denies syncope and Denies dyspnea Respiratory: Respiratory: Denies cough, Denies dyspnea and Denies wheezing Gastrointestinal: Gastrointestinal: Denies abdominal pain, Denies change in bowel habits, Reports diarrhea and Reports vomiting Genitourinary: Genitourinary: Denies urinary incontinence Musculoskeletal: Musculoskeletal: Reports arthralgias and Reports joint swelling Integumentary/Breasts: Skin/Breast: Denies new lesions and Denies rash Neurologic: Reports as per HPI, Denies dizziness, Denies syncope and Denies loss of vision Psychiatric: Psychiatric: Denies anxiety and Denies depression Endocrine: Endocrine: Denies cold intolerance and Denies heat intolerance Hematologic/Lymphatic: Hematologic/Lymphatic: Denies easy bleeding and Denies easy bruising Allergic/Immunologic: Allergic/Immunologic: Denies no additional allergic/immunologic complaints and Denies wheezing Exam Const: General: comfortable and no acute distress HENMT: Mouth: Yes moist mucous membranes Eyes: Pupils: Equal, round and reactive pupils present EOM: EOMs intact bilaterally Resp: Effort & Inspection: normal respiratory effort Skin: General skin exam: normal color Neuro: Other: Alert, awake, pupils equal and reactive bilaterally, EOMI, face symmetric, facial sensation intact, tongue protrudes midline, palate midline. Shoulder shrug normal. Strength and sensation is symmetric bilaterally, FNF normal bilaterally. Language comprehension and fluency intact. Gait deferred. Extrem: General: normal to inspection Psych: Mental Status: mental status grossly normal Affect: normal affect Objective Data Vital Signs Vital Signs: Vital Signs - 24 hr 01/04/23 13:35 01/04/23 12:00 01/04/23 16:00 Temperature 37.3 C Pulse Rate 82 81 85 Respiratory Rate 18 Blood Pressure 136/70 Pulse Oximetry 99 Oxygen Delivery Oxygen Flow Rate 01/04/23 19:26 01/04/23 21:35 01/04/23 20:00 Temperature 37.4 C Pulse Rate 90 89 Respiratory Rate 18 Blood Pressure 124/60 Pulse Oximetry 93 93 Oxygen Delivery Nasal Cannula Oxygen Flow R
--- NOTE | 2023-01-05 12:23 | PM.IMPN ---
Progress Note: A&P Assessment and Plan (1) Nausea & vomiting: Qualifiers: Vomiting type: unspecified Qualified Code(s): R11.2 - Nausea with vomiting, unspecified Code(s): R11.2 - Nausea with vomiting, unspecified Status: Acute Assessment and Plan: Patient has not had an episode vomiting since arrival to the hospital. CT abdomen pelvis revealing gastritis /esophagitis Pantoprazole 40 mg b.i.d. Zofran p.r.n. IV fluids continued. (2) Diarrhea: Qualifiers: Diarrhea type: unspecified type Qualified Code(s): R19.7 - Diarrhea, unspecified Code(s): R19.7 - Diarrhea, unspecified Status: Acute Assessment and Plan: patient presented to hospital due to diarrhea. Stool studies ordered and pending. C diff negative. Positive occult stool Monitor H&H Consider GI consult if worsening anemia. Imodium p.r.n. (3) Seizures: Code(s): R56.9 - Unspecified convulsions Status: Acute Assessment and Plan: Patient likely was not keeping down her seizure medications during vomiting episodes. This could be the reason of her breakthrough seizures. 2 episodes in the early childhood education specialist of 01/04/2023. Keppra 1000 mg x1 Neurology consulted and recommended not changing medication for now and follow up with primary neurology. Plan to restart home medications once cleared by speech. (4) OLIVER (acute kidney injury): Code(s): N17.9 - Acute kidney failure, unspecified Status: Resolved Assessment and Plan: On admission BUN and creatinine 25/1.1. IV fluids continued. Continue to monitor 01/05 BUN and creatinine 9/0.7 Subjective Date/time seen: 01/05/23 12:23 Interval history: Patient states that she is still having nausea and diarrhea. C diff is negative. Will start patient on Imodium P.r.n. continue to watch stool studies. Patient is much more alert but does not have any recollection of yesterday. She does states that her symptoms began the day of presentation. She denied any melena, hematochezia, hematemesis or bilious vomiting. Plan for modified barium swallow later today. Will resume home medications after study is complete. Exam Narrative: GENERAL: Comfortable, no acute distress, HENMT: moist mucous membranes EYES: EOM intact b/l NECK: no lymphadenopathy RESPIRATORY: clear to auscultation CARDIO: RRR GI: soft, nontender, bowel sounds present SKIN: no rashes EXTREMITIES: no edema, redness or tenderness NEURO: alert oriented x3 Objective Data Vital Signs Vital Signs: Vital Signs - 24 hr 01/04/23 13:35 01/04/23 16:00 01/04/23 19:26 Temperature 99.2 F 99.3 F Pulse Rate 82 85 90 Respiratory Rate 18 18 Blood Pressure 136/70 124/60 Pulse Oximetry 99 93 Oxygen Delivery Oxygen Flow Rate 01/04/23 21:35 01/04/23 20:00 01/05/23 00:00 Temperature Pulse Rate 89 85 Respiratory Rate Blood Pressure Pulse Oximetry 93 Oxygen Delivery Nasal Cannula Oxygen Flow Rate 1 01/04/23 22:50 01/05/23 05:51 01/05/23 04:00 Temperature 100.1 F H Pulse Rate 93 83 Respiratory Rate 18 Blood Pressure 140/65 Pulse Oximetry 93 97 Oxygen Delivery Nasal Cannula Oxygen Flow Rate 1 01/05/23 09:00 01/05/23 07:35 01/05/23 08:00 Temperature Pulse Rate 85 Respiratory Rate 18 Blood Pressure Pulse Oximetry 97 97 Oxygen Delivery Room Air Room Air Oxygen Flow Rate 01/05/23 12:00 Temperature Pulse Rate 80 Respiratory Rate Blood Pressure Pulse Oximetry Oxygen Delivery Oxygen Flow Rate Intake/Output Intake/Output: Intake & Output 01/02/23 01/03/23 01/04/23 01/05/23 23:59 23:59 23:59 23:59 Intake Total 1999 2420 1250 Output Total 50 1550 Balance 1989 2370 -300 Meds/Results Medications: Active Medications Generic Name Dose Route Start Last Admin Trade Name Freq PRN Reason Stop Dose Admin Cital
[2023-01-05] MEDS: LOPERAMIDE HCL 2 MG CAPSULE 4 MG PO (13:00)
--- NOTE | 2023-01-05 15:28 | PCSTNOTE ---
Please refer to the Modified Barium Swallow Evaluation in the EMR.
[2023-01-05] MEDS: lamoTRIgine 100 MG TABLET PO (22:11)
[2023-01-06] VITALS (10 sets, daily range): BP systolic 146–152; BP diastolic 69–81; PULSE 65–79; RESP 18; TEMP 36.4–37; O2SAT 97
[2023-01-06] MEDS: PIPERACILLN/TAZ 3.375GM/NS50ML 3.375 GM/50 ML BAG IVPB ×3 (00:20→11:24)
[2023-01-06] MEDS: ACETAMINOPHEN 500 MG TABLET 1000 MG PO (01:11)
[2023-01-06 05:52] LABS: Basophils Percent Auto 0.6 % (0.2-1.2); Eosinophils Absolute Auto 0.1 K/mm3 (0-0.3); Eosinophils Percent Auto 1.2 % (0-4.4); Hematocrit 38.3 % (37.0-47.0); Hemoglobin 11.9 g/dL (12.0-15.0); Immature Granulocyte Absolute 0.02 K/mm3 (0.00-0.031); Immature Granulocyte Percent A 0.3 % (0-0.5); Lymphocytes Absolute Auto 0.82 K/mm3 (0.9-3.2); Mean Corpuscular HGB Conc 31.1 g/dl (32-36); Mean Corpuscular Hemoglobin 30.1 pg (26-34); Mean Platelet Volume 9.7 fl (7.4-10.4); Monocytes Absolute Auto 0.5 K/mm3 (0.1-0.6); Monocytes Percent Auto 7.7 % (2.6-8.5); Neutrophils Absolute Auto 5.4 K/mm3 (1.3-6.7); Neutrophils Percent Auto 78.2 % (45.5-73.1); Platelet Count Result 235 k/mm3 (150-375); Red Blood Count 3.95 M/mm3 (4.2-5.4); Red Cell Distribution Width 14.3 % (11.5-14.5); White Blood Count 6.9 K/mm3 (4.5-10.0)
[2023-01-06 05:59] LABS: Alanine Aminotransferase 39 U/L (6-35); Albumin Level 3.3 g/dL (3.5-5.1); Alkaline Phosphatase 60 U/L (38-126); Anion Gap 7 mmol/L (8-16); Aspartate Amino Transferase 43 U/L (14-36); Bilirubin,Total 0.5 mg/dL (0.2-1.3); Blood Urea Nitrogen 7 mg/dL (7-17); Calcium 8.5 mg/dL (8.4-10.2); Carbon Dioxide 20 mmol/L (22-30); Chloride 114 mmol/L (98-107); Estimated CRCL calculation 56 ml/min; Estimated Glomerular Filt Rate > 60; Glucose 86 mg/dL (65-110); Potassium 3.4 mmol/L (3.4-5.0); Sodium 141 mmol/L (137-145)
[2023-01-06] MEDS: CITALOPRAM HYDROBROMIDE 20 MG TABLET PO (08:02)
[2023-01-06] MEDS: lamoTRIgine 50 MG TABLET PO (08:02)
[2023-01-06] MEDS: PANTOPRAZOLE SODIUM IV 40 MG VIAL IV PUSH ×2 (08:02→21:46)
--- NOTE | 2023-01-06 12:55 | PM.IMPN ---
Progress Note: A&P Assessment and Plan (1) Nausea & vomiting: Qualifiers: Vomiting type: unspecified Qualified Code(s): R11.2 - Nausea with vomiting, unspecified Code(s): R11.2 - Nausea with vomiting, unspecified Status: Acute Assessment and Plan: Patient has not had an episode vomiting since arrival to the hospital. CT abdomen pelvis revealing gastritis/esophagitis Pantoprazole 40 mg b.i.d. Zofran p.r.n. IV fluids continued. (2) Diarrhea: Qualifiers: Diarrhea type: unspecified type Qualified Code(s): R19.7 - Diarrhea, unspecified Code(s): R19.7 - Diarrhea, unspecified Status: Acute Assessment and Plan: patient presented to hospital due to diarrhea. Stool studies ordered and pending. C diff negative. Positive occult stool Monitor H&H Consider GI consult if worsening anemia. Imodium p.r.n. (3) Seizures: Code(s): R56.9 - Unspecified convulsions Status: Acute Assessment and Plan: Patient likely was not keeping down her seizure medications during vomiting episodes. This could be the reason of her breakthrough seizures. 2 episodes in the director bioinformatics of 01/04/2023. Keppra 1000 mg x1 Neurology consulted and recommended not changing medication for now and follow up with primary neurology. Restart home medications. (4) OLIVER (acute kidney injury): Code(s): N17.9 - Acute kidney failure, unspecified Status: Resolved Assessment and Plan: On admission BUN and creatinine 25/1.1. IV fluids continued. Continue to monitor 01/05 BUN and creatinine 9/0.7 Subjective Date/time seen: 01/06/23 12:55 Interval history: Patient doing much better today and states that her diarrhea has lessened in frequency. I had long discussion, approximately 20 minutes, with patient's daughter about her care and how we are still waiting on stool cultures to return. PT and OT have been ordered for the patient according to patient's daughter she has been getting outpatient PT and OT and has been doing really well with it. Some of her home medications were not put in the computer correctly and they were changed on her med list so she was getting the appropriate seizure medication. She denies any abdominal pain, nausea, vomiting, chest pain shortness a breath. Exam Narrative: GENERAL: Comfortable, no acute distress, HENMT: moist mucous membranes EYES: EOM intact b/l NECK: no lymphadenopathy RESPIRATORY: clear to auscultation CARDIO: RRR GI: soft, nontender, bowel sounds present SKIN: no rashes EXTREMITIES: no edema, redness or tenderness NEURO: alert oriented x3 Objective Data Vital Signs Vital Signs: Vital Signs - 24 hr 01/05/23 15:08 01/05/23 16:03 01/05/23 19:37 Temperature 98.9 F 98.7 F Pulse Rate 75 74 77 Respiratory Rate 18 17 Blood Pressure 132/62 129/68 Pulse Oximetry 96 96 Oxygen Delivery Oxygen Flow Rate 01/05/23 20:00 01/06/23 00:00 01/06/23 02:46 Temperature 97.6 F Pulse Rate 68 72 79 Respiratory Rate 18 Blood Pressure 147/69 H Pulse Oximetry 97 Oxygen Delivery Oxygen Flow Rate 01/05/23 22:30 01/05/23 22:06 01/06/23 04:00 Temperature Pulse Rate 79 Respiratory Rate Blood Pressure Pulse Oximetry 96 96 Oxygen Delivery Room Air Nasal Cannula Oxygen Flow Rate 1 01/06/23 08:10 01/06/23 08:10 01/06/23 12:00 Temperature Pulse Rate 71 65 Respiratory Rate Blood Pressure Pulse Oximetry Oxygen Delivery Room Air Oxygen Flow Rate Intake/Output Intake/Output: Intake & Output 01/03/23 01/04/23 01/05/23 01/06/23 23:59 23:59 23:59 23:59 Intake Total 1999 2420 2557 990 Output Total 50 2600 200 Balance 1989 5000 -99 954 Meds/Results Medications: Active Medications Generic Name Dose Route Start Last Admin Trade Name Freq PRN Reason Stop Dose Admin Citalopram
[2023-01-06] MEDS: AMOXICILLIN/CLAVULANATE K 875-125 MG TAB 1 TABLET PO (17:05)
[2023-01-06] MEDS: lamoTRIgine 100 MG TABLET 200 MG PO (21:46)
[2023-01-07] VITALS: PULSE 74
[2023-01-07] MEDS: ACETAMINOPHEN 325 MG TABLET 650 MG PO (00:59)
[2023-01-07 04:00] VITALS: PULSE 67
[2023-01-07 04:39] VITALS: BP 141/72; PULSE 70; RESP 20; TEMP 36.4; O2SAT 99
[2023-01-07 05:11] LABS: Hematocrit 38.2 % (37.0-47.0); Hemoglobin 12.1 g/dL (12.0-15.0); Mean Corpuscular HGB Conc 31.7 g/dl (32-36); Mean Corpuscular Hemoglobin 29.9 pg (26-34); Mean Corpuscular Volume 94.3 fl (80-100); Mean Platelet Volume 9.5 fl (7.4-10.4); Platelet Count Result 256 k/mm3 (150-375); Red Blood Count 4.05 M/mm3 (4.2-5.4); Red Cell Distribution Width 14.2 % (11.5-14.5); White Blood Count 6.4 K/mm3 (4.5-10.0)
[2023-01-07 05:26] LABS: Potassium 3.4 mmol/L (3.4-5.0)
[2023-01-07 05:31] LABS: Anion Gap 10 mmol/L (8-16); Blood Urea Nitrogen 10 mg/dL (7-17); Calcium 8.7 mg/dL (8.4-10.2); Carbon Dioxide 21 mmol/L (22-30); Chloride 111 mmol/L (98-107); Estimated CRCL calculation 56 ml/min; Estimated Glomerular Filt Rate > 60; Glucose 96 mg/dL (65-110); Sodium 142 mmol/L (137-145)
[2023-01-07 08:00] VITALS: PULSE 66
[2023-01-07 08:15] VITALS: O2SAT 94
[2023-01-07] MEDS: AMOXICILLIN/CLAVULANATE K 875-125 MG TAB 1 TABLET PO (08:30)
[2023-01-07] MEDS: CITALOPRAM HYDROBROMIDE 20 MG TABLET PO (08:30)
[2023-01-07] MEDS: lamoTRIgine 100 MG TABLET 300 MG PO (08:30)
[2023-01-07] MEDS: PANTOPRAZOLE SODIUM IV 40 MG VIAL IV PUSH (08:31)
--- NOTE | 2023-01-07 10:51 | PM.DS ---
DS: Admitting Diagnosis Discharge Date 01/07/23 Admitting Diagnosis Diarrhea, seizure activity DS: Discharge Diagnosis Discharge Diagnosis (1) Nausea & vomiting: Qualifiers: Vomiting type: unspecified Qualified Code(s): R11.2 - Nausea with vomiting, unspecified Code(s): R11.2 - Nausea with vomiting, unspecified Status: Acute (2) Diarrhea: Qualifiers: Diarrhea type: unspecified type Qualified Code(s): R19.7 - Diarrhea, unspecified Code(s): R19.7 - Diarrhea, unspecified Status: Acute (3) Seizures: Code(s): R56.9 - Unspecified convulsions Status: Acute (4) OLIVER (acute kidney injury): Code(s): N17.9 - Acute kidney failure, unspecified Status: Resolved DS: Summary Hospital Course Hospital Course: This is a 67-year-old female with past medical history of seizure disorder, rheumatoid arthritis, hypertension, hyperlipidemia and osteoporosis the presented to ED on 01/03/2023 due to nausea, vomiting and diarrhea.? Upon presentation her vital signs are stable, she is afebrile with normal abdominal exam.? She was found to have elevated white blood cell count of 10.7, elevated hemoglobin of 16.3, bicarb of 18 , creatinine of 1.1. EKG did not reveal any ischemic changes.? Troponin negative.? Chest x-ray without acute cardiopulmonary abnormality.? CT abdomen pelvis showing right lower lobe consolidation, esophagitis/gastritis, fluid-filled colon that could be seen with diarrheal illness and 2.8 cm saccular infrarenal abdominal aortic aneurysm. she was started on Zosyn for diarrhea. Stool studies, C diff and occult blood ordered. Occult Blood came back positive but likely due to gut inflammation. Her H&H remained stable during her hospital stay. C diff and stool studies came back negative. Will complete course of antibiotics. Patient's diarrhea resolved and she is feeling much better. She did have episode of unresponsiveness when she 1st arrived. She was found to have hypoxia and was started on oxygen.? Head CT? Ordered and revealed no acute intracranial process.? Patient had subsequent unresponsive episode when I was in the room with hand twitching present.? It appeared that patient was having a seizure.? She is given 1 dose of Keppra.? Patient likely was unable to keep down her seizure medication during the days leading up to hospitalization because of the vomiting.? Neurology consulted. Neurology recommended that she continue her home medication and follow up with her neurologist. Breakthrough seizure likely due to acute illness. She was given Keppra until she was cleared by speech with swallow study. Her labs and vital signs are stable and she is medically clear for discharge at this time. Time Spent with Patient Time attestation: Total time spent providing and/or coordinating discharge services: Exam Narrative: GENERAL: Comfortable, no acute distress, HENMT: moist mucous membranes EYES: EOM intact b/l NECK: no lymphadenopathy RESPIRATORY: clear to auscultation CARDIO: RRR GI: soft, nontender, bowel sounds present SKIN: no rashes EXTREMITIES: no edema, redness or tenderness NEURO: alert oriented x3 DS: Data Data Completed and Pending Labs on day of discharge: Labs from last 24 hours 01/07/23 04:31 WBC 6.4 RBC 4.05 L Hgb 12.1 Hct 38.2 MCV 94.3 MCH 29.9 MCHC 31.7 L RDW 14.2 Plt Count 256 MPV 9.5 Sodium 142 Potassium 3.4 Chloride 111 H Carbon Dioxide 21 L Anion Gap 10 BUN 10 Creatinine 0.70 Estim Creat Clear Calc 56 Estimated GFR > 60 Glucose 96 Calcium 8.7 Preliminary micro results at discharge 01/04/23 00:16 Blood Culture - Preliminary Blood 01/04/23 00:16 Blood Culture - Preliminary Blood Discharge Plan Discharge Attending physician on discharge: Crow Baltazar Consulting providers: Lulú Maddox; Audie Purcell Discharging Clinician: Lyn Villarreal Patient
[2023-01-07 12:00] VITALS: PULSE 78
[2023-01-08 02:20] LABS: Legionella pneumophila Ag Ur Not Detected (Not Detected)
[2023-01-08 07:43] LABS: Lamotrigine Lamictal 3.2 mcg/mL (2.5-15.0)
== END 2023-01-07 12:40 | disposition home or self-care (01) | DRG 392 ==
LOC: ANHED 23:33 → ANH2MED 01-04 02:00
PROVIDERS: Emergency Medicine; Student in an Organized Health Care Education/Training Program; Admitting Provider Internal Medicine; Emergency Provider Physician Assistant; Visit Provider Internal Medicine Critical Care Medicine
DX: K52.9 Noninfective gastroenteritis and colitis, unspecified (principal); N17.9 Acute kidney failure, unspecified; E86.0 Dehydration; R11.2 Nausea with vomiting, unspecified; R13.10 Dysphagia, unspecified; D64.9 Anemia, unspecified; E78.5 Hyperlipidemia, unspecified; G40.909 Epilepsy, unspecified, not intractable, without status epilepticus; I71.43 Infrarenal abdominal aortic aneurysm, without rupture; I10 Essential (primary) hypertension; K21.9 Gastro-esophageal reflux disease without esophagitis; M06.9 Rheumatoid arthritis, unspecified; M81.0 Age-related osteoporosis without current pathological fracture; R09.02 Hypoxemia; Z20.822 Contact with and (suspected) exposure to COVID-19; Z85.43 Personal history of malignant neoplasm of ovary; Z90.710 Acquired absence of both cervix and uterus; Z79.82 Long term (current) use of aspirin; Z96.643 Presence of artificial hip joint, bilateral
CPT/HCPCS: 36415; 70450; 71045; 72132; 74177; 76705; 80048; 80053; 80175; 81001; 82274; 82550; 82948; 83605; 83690; 83735; 84484; 85014; 85018; 85025; 85027; 87040; 87045; 87427; 87449; 87493; 87636; 92610; 93005; 93306; 96361; 96365; 96366; 96375; 96376; 97165; 99285; A9270; C9113; G0378; J1170; J1200; J1953; J2270; J2405; J2543; J2765; J3480; J7030; J7040; J7042; Q9967

== ENCOUNTER 2023-05-17 14:53 | Observation (INO) | payer MEDICARE, SELFPAY ==
[2023-05-17] VITALS (8 sets, daily range): BP systolic 146–183; BP diastolic 78–96; PULSE 60–68; RESP 12–18; TEMP 36.5–36.6; O2SAT 94–99; BMI 22.8
--- NOTE | ~2023-05-17 | XR_ITS ---
EXAMINATION: XR chest 1V portable INDICATION: Chest pain TECHNIQUE: Portable AP chest at 1624 hours COMPARISON: 01/03/2023 FINDINGS: The lungs are free of acute opacities. No pleural effusion or pneumothorax. The cardiomedia stinal silhouette is normal. There are changes of bilateral shoulder arthroplasty. Partially imaged s urgical changes are also noted in the lower cervical spine. There is vertebroplasty change of the upp er lumbar spine. IMPRESSION: 1. No acute cardiopulmonary abnormality. Reviewed, dictated and finalized at location F.
--- NOTE | 2023-05-17 16:16 | ECG_ITS ---
Measurements Intervals [place] Rate: 57 P: 46 PA: 149 QRS: -4 QRSD: 88 T: 74 QT: 409 QTc: 399 Interpretive Statements SINUS BRADYCARDIA NONSPECIFIC ST & T-WAVE ABNORMALITY- ANT/HIGH LAT LEADS BORDERLINE ECG COMPARED TO ECG 01/03/2023 19:07:52 SINUS BRADYCARDIA NOW PRESENT Electronically Signed On 05-17-2023 19:09:11 CDT by Chele Hughes D.O.
--- NOTE | 2023-05-17 16:20 | ED.CHESTPAIN ---
HPI - Chest Pain General Chief Complaint: Chest Pain Stated Complaint: cp/nausea/vomiting Time Seen by Provider: 05/17/23 15:48 History of Present Illness HPI narrative: Pt presents with complaints of FORMAN and CP. Pt says she had a FORMAN for two days which has now resolved. Pt says she has Cp in anterior chest for 6 hrs constant and non radiating. Pt says she has had some minor CP before which resolves after some time but has never lasted this long. Related Data Home Medications Medication Instructions Recorded Confirmed Centrum Silver Women 1 tablet PO DAILY 03/30/19 01/04/23 aspirin 325 mg tablet 325 mg PO DAILY 03/30/19 01/04/23 atorvastatin 80 mg tablet 80 mg PO DAILY 03/30/19 01/04/23 citalopram 10 mg tablet 20 mg PO DAILY 03/30/19 01/04/23 tofacitinib 11 mg tablet,extended 11 mg PO DAILY 03/30/19 01/04/23 release 24 hr (Xeljanz XR) brivaracetam 50 mg tablet 150 mg PO QAM 02/16/21 01/04/23 (Briviact) brivaracetam 100 mg tablet 100 mg PO HS 01/04/23 01/04/23 (Briviact) Allergies Allergy/AdvReac Type Severity Reaction Status Date / Time gold Au 198 Allergy Mild Unknown Verified 02/16/21 01:33 Quinolones Allergy Mild Unknown Verified 02/16/21 01:33 ciprofloxacin [From Cipro] Allergy Unknown Other Verified 02/16/21 01:33 hydroxychloroquine Allergy Unknown Other Verified 02/16/21 01:33 sulfasalazine Allergy Unknown Unknown Verified 02/16/21 01:33 leflunomide AdvReac Unknown CONFUSION, Verified 02/16/21 01:33 GI UPSET Sulfa (Sulfonamide AdvReac Unknown NAUSEA Verified 02/16/21 01:33 Antibiotics) Review of Systems Review of Systems: All systems reviewed & are unremarkable except as noted in HPI and below PMFSH Past Medical History Medical History Anemia Bronchitis Depression Diverticulitis GERD (gastroesophageal reflux disease) History of osteoporosis HLD (hyperlipidemia) HTN (hypertension) Kidney stones Migraine Ovarian cancer Rheumatoid arthritis Seizures UTI (urinary tract infection) Surgical History Surgical History H/O breast augmentation H/O wrist surgery H/O: hysterectomy Hx of bilateral hip replacements Family History Family History (Updated 01/04/23 @ 03:47 by Kallie Mendoza RN) Mother Diabetes mellitus Father Heart disease Social History Social History Smoking status: Never smoker Alcohol intake: never Substance use: never Spiritual care concerns: No Exam Const: General: healthy appearing and no acute distress Nutritional Appearance: well nourished Orientation/consciousness: patient oriented x3 Limitations: no limitations Chest: Chest palpation & inspection: normal inspection of the chest Resp: Effort & Inspection: normal respiratory effort Auscultation: clear to auscultation bilaterally Cardio: Rate: regular rate Rhythm: regular rhythm GI: GI Palp: Yes Soft to palpation Auscultation: normal bowel sounds Skin: General skin exam: normal color Rashes: no rashes Wounds: no wounds Neuro: General: patient oriented x3, moves all extremities, no meningeal signs, no focal motor deficits and CN's II-XI intact bilaterally Cranial nerves: Yes Nystagmus not present Speech: normal speech Extrem: General: normal to inspection Psych: Mental Status: mental status grossly normal Affect: normal affect Attitude: cooperative Course Vital Signs Vital signs: Vital Signs Temperature 98 F 05/17/23 15:10 Pulse Rate 66 05/17/23 15:10 Respiratory Rate 16 05/17/23 15:10 Blood Pressure 151/78 H 05/17/23 15:10 Pulse Oximetry 98 05/17/23 15:10 Temperature 98 F 05/17/23 15:10 Pulse Rate 64 05/17/23 18:10 Respiratory Rate 17 05/17/23 18:10 Blood Pressure 167/96 H 05/17/23 18:10 Pulse Oximetry 99 05/17/23 18:10 Oxygen Delivery Room Air 05/17/23
[2023-05-17] MEDS: ONDANSETRON INJ 4 MG/2 ML VIAL IV PUSH (16:41)
[2023-05-17] MEDS: MORPHINE SULFATE (*CRX) 2 MG/ML INJ IV PUSH (16:41)
[2023-05-17 16:51] LABS: Basophils Percent Auto 0.3 % (0.2-1.2); Eosinophils Absolute Auto 0.1 K/mm3 (0-0.3); Eosinophils Percent Auto 0.6 % (0-4.4); Hematocrit 45.5 % (37.0-47.0); Hemoglobin 14.7 g/dL (12.0-15.0); Immature Granulocyte Absolute 0.05 K/mm3 (0.00-0.031); Immature Granulocyte Percent A 0.6 % (0-0.5); Lymphocytes Absolute Auto 1.26 K/mm3 (0.9-3.2); Lymphocytes Percent Auto 14.5 % (18.3-44.2); Mean Corpuscular HGB Conc 32.3 g/dl (32-36); Mean Corpuscular Hemoglobin 30.1 pg (26-34); Mean Corpuscular Volume 93.2 fl (80-100); Mean Platelet Volume 9.2 fl (7.4-10.4); Monocytes Absolute Auto 0.7 K/mm3 (0.1-0.6); Monocytes Percent Auto 7.7 % (2.6-8.5); Neutrophils Absolute Auto 6.6 K/mm3 (1.3-6.7); Neutrophils Percent Auto 76.3 % (45.5-73.1); Platelet Count Result 329 k/mm3 (150-375); Red Blood Count 4.88 M/mm3 (4.2-5.4); White Blood Count 8.7 K/mm3 (4.5-10.0)
[2023-05-17 17:02] LABS: Prothrombin Time 13.5 Seconds (11.1-14.7)
[2023-05-17 17:03] LABS: Alanine Aminotransferase 31 U/L (6-35); Albumin Level 4.6 g/dL (3.5-5.1); Alkaline Phosphatase 75 U/L (38-126); Anion Gap 4 mmol/L (8-16); Aspartate Amino Transferase 37 U/L (14-36); Bilirubin,Total 0.5 mg/dL (0.2-1.3); Blood Urea Nitrogen 19 mg/dL (7-17); Calcium 10.6 mg/dL (8.4-10.2); Carbon Dioxide 32 mmol/L (22-30); Chloride 101 mmol/L (98-107); Estimated CRCL calculation 46 ml/min; Estimated Glomerular Filt Rate > 60; Glucose 100 mg/dL (65-110); Partial Thromboplastin Time 26.5 Seconds (22.3-36.8); Potassium 4.3 mmol/L (3.4-5.0); Sodium 137 mmol/L (137-145)
[2023-05-17 17:14] LABS: Troponin I < 0.012 ng/mL (0.000-0.034)
[2023-05-17] MEDS: fentaNYL CITRATE INJ (*CRX) 100 MCG/2 ML VIAL 50 MCG IV PUSH (18:08)
--- NOTE | 2023-05-17 19:18 | ECG_ITS ---
Measurements Intervals [place] Rate: 63 P: 49 RI: 147 QRS: -3 QRSD: 91 T: 68 QT: 402 QTc: 414 Interpretive Statements SINUS RHYTHM NONSPECIFIC ST-T WAVE ABNORMALITY- ANT/HIGH LAT LEADS BASELINE ARTIFACT- I, II, AVR BORDERLINE ECG COMPARED TO ECG 05/17/2023 16:23:55 SINUS RHYTHM NOW PRESENT Electronically Signed On 05-17-2023 19:26:43 CDT by Chele Hughes D.O.
[2023-05-17 20:55] LABS: Troponin I < 0.012 ng/mL (0.000-0.034)
--- NOTE | 2023-05-17 21:19 | PM.IMHP ---
H&P: HPI History of Present Illness Date/Time: 05/17/23 21:19 Chief Complaint: epigastric pain Narrative: this is a 67-year-old female with past medical history significant for GERD, hypertension, rheumatoid arthritis, ovarian cancer, Seizures. Patient presents to the emergency room due to epigastric pain stays that has been going on for several days had episode of vomiting preceding these, denies any lightheadedness, syncope or near-syncope, denies shortness of breath. Preliminary workup essentially nonrevealing. troponins x3 undetectable EXAMINATION: XR chest 1V portable INDICATION: Chest pain TECHNIQUE: Portable AP chest at 1624 hours COMPARISON: 01/03/2023 FINDINGS: The lungs are free of acute opacities. No pleural effusion or pneumothorax. The cardiomediastinal silhouette is normal. There are changes of bilateral shoulder arthroplasty. Partially imaged surgical changes are also noted in the lower cervical spine. There is vertebroplasty change of the upper lumbar spine. IMPRESSION: 1. No acute cardiopulmonary abnormality. Review of Systems Review of Systems: chest pain, vomiting PMFSH Past Medical History Medical History (Updated 05/18/23 @ 02:30 by Bud Sylvester MD) Anemia Bronchitis Depression Diverticulitis GERD (gastroesophageal reflux disease) History of osteoporosis HLD (hyperlipidemia) HTN (hypertension) Kidney stones Migraine Ovarian cancer Rheumatoid arthritis Seizures UTI (urinary tract infection) Surgical History Surgical History H/O breast augmentation H/O wrist surgery H/O: hysterectomy Hx of bilateral hip replacements Family History Family History Mother Diabetes mellitus Father Heart disease Social History Social History Smoking status: Never smoker Alcohol intake: never Substance use: never Do You Feel Safe in your Home?: Yes Lack of Transportation: No Lack of Food: Never True Current Housing: I Have Housing Concerned About Future Housing: No Difficulty Paying Gas/Electric Bills: No Difficulty Paying for Meds: No Currently Unemployed: No Education: Bachelor's Degree Difficulty w/ Childcare or Family Care: No Spiritual care concerns: No Meds Home Medications and Allergies Home Medications Medication Instructions Recorded Confirmed Type Centrum Silver Women 1 tablet PO DAILY 03/30/19 05/17/23 History atorvastatin 80 mg tablet 80 mg PO DAILY 03/30/19 05/17/23 History citalopram 10 mg tablet 20 mg PO DAILY 03/30/19 05/17/23 History tofacitinib 11 mg tablet,extended 11 mg PO DAILY 03/30/19 05/17/23 History release 24 hr (Xeljanz XR) brivaracetam 50 mg tablet 150 mg PO QAM 02/16/21 05/17/23 History (Briviact) brivaracetam 100 mg tablet 100 mg PO HS 01/04/23 05/17/23 History (Briviact) lamotrigine 100 mg tablet 200 mg PO QHS #30 tabs 01/07/23 05/17/23 Rx (Lamictal) lamotrigine 100 mg tablet 300 mg PO QAM #30 tabs 01/07/23 05/17/23 Rx (Lamictal) omeprazole 40 mg capsule,delayed 40 mg PO DAILY #30 caps 01/07/23 05/17/23 Rx release Allergies Allergy/AdvReac Type Severity Reaction Status Date / Time gold Au 198 Allergy Mild Unknown Verified 02/16/21 01:33 Quinolones Allergy Mild Unknown Verified 02/16/21 01:33 ciprofloxacin [From Cipro] Allergy Unknown Other Verified 02/16/21 01:33 hydroxychloroquine Allergy Unknown Other Verified 02/16/21 01:33 sulfasalazine Allergy Unknown Unknown Verified 02/16/21 01:33 leflunomide AdvReac Unknown CONFUSION, Verified 02/16/21 01:33 GI UPSET Sulfa (Sulfonamide AdvReac Unknown NAUSEA Verified 02/16/21 01:33 Antibiotics) Vital Signs Vital Signs - 24 hr 05/17/23 15:10 05/17/23 16:38 05/17/23 16:40 Temperature 98 F Pulse Rate 66 62 Respiratory Rate 16 Blood Pressure 151
--- NOTE | 2023-05-17 21:37 | ADMGEN ---
This patient, Babs Parrish, was admitted to IMU Room 232-01 at 2110. Patient/family oriented to hospital policies and general routines including ID bracelet, bed and alarms, visiting hours, pain management, procedures, bathroom and other care routines, personal items, smoking policy, room service/diet, and visiting hours. Information on how to activate the Rapid Response Team has been discussed. Patient/Family are encouraged to report perceived risks to care and to ask questions if they do not understand what they are told or what they should do.
[2023-05-18] VITALS (9 sets, daily range): BP systolic 142–155; BP diastolic 65–86; PULSE 64–89; RESP 12–18; TEMP 36.1–36.4; O2SAT 94–96
[2023-05-18] MEDS: lamoTRIgine 100 MG TABLET 200 MG PO (00:08)
[2023-05-18 01:10] LABS: Troponin I < 0.012 ng/mL (0.000-0.034)
[2023-05-18] MEDS: SUCRALFATE 1 GM TABLET PO (01:40)
[2023-05-18] MEDS: MORPHINE SULFATE (*CRX) 2 MG/ML INJ 1 MG IV PUSH (01:40)
[2023-05-18] MEDS: PANTOPRAZOLE SODIUM IV 40 MG VIAL IV PUSH ×2 (01:40→10:08)
[2023-05-18] MEDS: SUCRALFATE SUSP 100 MG/ML 10 ML UDC 1000 MG PO ×2 (05:58→11:23)
[2023-05-18] MEDS: ATORVASTATIN 40 MG TABLET 80 MG PO (10:07)
[2023-05-18] MEDS: CITALOPRAM HYDROBROMIDE 20 MG TABLET PO (10:07)
[2023-05-18] MEDS: lamoTRIgine 100 MG TABLET 300 MG PO (10:07)
--- NOTE | 2023-05-18 10:47 | PHAR ---
HOME MED: BRIVARACETAM (BRIVIACT) 100 MG TABLETS, TAKE 1/2 TABLET BY MOUTH EVERY MORNING AND TAKE 1 TABLET BY MOUTH NIGHTLY. VERIFIED BY PHARMACY 05/18/23 @ 6961.
--- NOTE | 2023-05-18 10:56 | PHAR ---
HOME MED: TOFACITINIB (XELJANZ XR) 11 MG TABLETS, TAKE ONE TABLET BY MOUTH DAILY. VERIFIED IN PHARMACY 05/18/23 @ 7487.
--- NOTE | 2023-05-18 16:27 | PM.DS ---
DS: Admitting Diagnosis Discharge Date 05/18/2023 Admitting Diagnosis epigastric pain DS: Discharge Diagnosis Discharge Diagnosis (1) Epigastric pain: Code(s): R10.13 - Epigastric pain Status: Acute Assessment and Plan: Patient with significant history of GERD Had episode of stomach upset with vomiting preceding epigastric pain Started sucralfate and Protonix. Pt feels better tolerating a diet Pt wants to go home does not want to see GI in hospital will follow outpatient. (2) Nausea & vomiting: Qualifiers: Vomiting type: unspecified Qualified Code(s): R11.2 - Nausea with vomiting, unspecified Code(s): R11.2 - Nausea with vomiting, unspecified Status: Acute Assessment and Plan: Supportive care (3) GERD (gastroesophageal reflux disease): Code(s): K21.9 - Gastro-esophageal reflux disease without esophagitis Status: Acute Assessment and Plan: PPI (4) Seizures: Code(s): R56.9 - Unspecified convulsions Status: Acute Assessment and Plan: Stable (5) HTN (hypertension): Code(s): I10 - Essential (primary) hypertension Status: Acute Assessment and Plan: Bp stable on dc resume home Bp meds DS: Summary Hospital Course Hospital Course: 67-year-old female with past medical history significant for GERD, hypertension, rheumatoid arthritis, ovarian cancer,? Seizures.? Patient presents to the emergency room due to epigastric pain stays that has been going on for several days had episode of vomiting preceding these, denies any lightheadedness, syncope or near-syncope, denies shortness of breath.? Preliminary workup essentially nonrevealing. troponins x3 undetectable. Tele has been negative no compliants overnite. Ok to DC. Status at Discharge Cognitive/behavioral status at discharge: stable Time Spent with Patient Time attestation: Total time spent providing and/or coordinating discharge services:40 minutes on day of DC Exam Narrative: Patient is laying in bed Const: General: comfortable, no acute distress, well developed, alert, awake, average body habitus and thin Nutritional Appearance: average body habitus and thin Orientation/consciousness: patient oriented x3 HENMT: Head: normal to inspection, normocephalic and atraumatic Ears: hearing grossly normal bilaterally Face/Nose/Sinus: normal facial exam Face and sinus: normal facial exam Eyes: General: appearance normal, both eyes and all related structures Pupils: Equal, round and reactive pupils present EOM: EOMs intact bilaterally Neck: Neck: full ROM, no lymphadenopathy and no JVD Thyroid: thyroid normal Lymphatic: no lymphadenopathy noted Resp: Effort & Inspection: normal respiratory effort and able to speak in complete sentences Auscultation: clear to auscultation bilaterally Cardio: Jugular venous distension: no JVD Rate: regular rate Rhythm: regular rhythm Heart sounds: S1 normal heart sound present and S2 normal heart sound present : General: Yes deferred Skin: Rashes: no rashes Wounds: no wounds Neuro: General: patient oriented x3 and CN's II-XI intact bilaterally Cranial nerves: Yes CN's II-XII intact bilaterally and Yes Equal, round and reactive pupils present Cognition (Neuro): normal cognition Speech: normal speech Gait exam (Neuro): Normal gait present Motor exam (neuro): 5/5 motor strength present throughout Extrem: General: normal to inspection, full ROM, no joint enlargement and no pedal edema DS: Data Data Completed and Pending Labs on day of discharge: Labs from last 24 hours 05/18/23 05/17/23 05/17/23 00:43 20:29 16:33 WBC RBC Hgb Hct MCV MCH MCHC RDW Plt Count MPV Immature Gran % (Auto) Neut % (Auto) Lymph % (Auto) [place] % (Auto) Eos % (Auto) Baso % (Auto) Lymph # (Auto) [place] # (Auto) Eos # (Auto) Baso # (Auto) Abs Immat Gran (auto)
== END 2023-05-18 17:13 | disposition home or self-care (01) ==
LOC: ANHED 18:38 → ANHIMU 21:13
PROVIDERS: Admitting Provider Internal Medicine; Emergency Provider Emergency Medicine; Visit Provider Family Medicine
DX: R10.13 Epigastric pain (principal); R11.2 Nausea with vomiting, unspecified; K21.9 Gastro-esophageal reflux disease without esophagitis; G40.909 Epilepsy, unspecified, not intractable, without status epilepticus; I10 Essential (primary) hypertension; D64.9 Anemia, unspecified; R00.1 Bradycardia, unspecified; F32.A Depression, unspecified; E78.5 Hyperlipidemia, unspecified; M06.9 Rheumatoid arthritis, unspecified; M81.0 Age-related osteoporosis without current pathological fracture; Z96.643 Presence of artificial hip joint, bilateral; Z85.43 Personal history of malignant neoplasm of ovary; Z79.82 Long term (current) use of aspirin; Z79.622 Long term (current) use of Janus kinase inhibitor; Z79.899 Other long term (current) drug therapy
CPT/HCPCS: 36415; 71045; 80053; 84484; 85025; 85610; 85730; 93005; 96374; 96375; 96376; 99285; A9270; C9113; G0378; J2270; J2405; J3010

== ENCOUNTER 2024-02-20 14:09 | Emergency (ER) | payer MEDICARE, SELFPAY ==
[2024-02-20] VITALS (9 sets, daily range): BP systolic 114–140; BP diastolic 71–84; PULSE 65–82; RESP 14–22; TEMP 36.2; O2SAT 96–98
--- NOTE | ~2024-02-20 | XR_ITS ---
CHEST RADIOGRAPH, PA AND LATERAL CLINICAL HISTORY: weakness WITH SEIZURE AND TREMORS THAT . COMPARISON: 05/17/2023 TECHNIQUE: PA and lateral views of the chest. FINDINGS The cardiomediastinal silhouette is unremarkable. The lungs are clear. Fixation hardware within the cervical spine and bilateral shoulders. IMPRESSION: No focal infiltrate or effusion. Reviewed, dictated and finalized at location A. TION AND MEASUREMENT TECHNICIAN
--- NOTE | ~2024-02-20 | CT_ITS ---
History: Severe headaches PROCEDURE: CT head without contrast. COMPARISON: 02/16/2021 and dating back to 12/25/2009 TECHNIQUE: Axial imaging of the head performed from the skull base to the vertex without IV contrast. Sagittal a nd coronal reformations obtained. Evaluation of the posterior cranial fossa is limited secondary to metallic streak artifact from the p atient's hardware. DLP: 605 mGy-cm FINDINGS: The ventricles are normal in size, shape and position. There is no mass, mass effect or midline shift. There is no abnormal extra-axial fluid collection or intracranial hemorrhage. Interval development of a 13 mm well-circumscribed calcification within the posterior parietal lobe, not present on the 2020, 2014 or 2009 examination. This focus demonstrates benign imaging features, w ithout surrounding edema or mass effect. Visualized paranasal sinuses are clear. The mastoid air cells are well aerated. No acute displaced fractures within the overlying cranium. Impression: No acute intracranial hemorrhage or suspicious mass effect. Interval development of a 13 mm well-circumscribed calcification within the posterior parietal lobe, not present on the 2020, 2014 or 2009 examination with benign imaging features, without surrounding e pete or mass effect. Reviewed, dictated and finalized at location A. ERY MENDER Impression: No acute intracranial hemorrhage or suspicious mass effect. Interval development of a 13 mm well-circumscribed calcification within the pos terior parietal lobe, not present on the 2020, 2014 or 2009 examination with be nign imaging features, without surrounding edema or mass effect.
[2024-02-20 14:20] LABS: Glucose Point of Care 117 mg/dl (65-105)
--- NOTE | 2024-02-20 14:25 | PC.NURSE ---
KRYSTIN Jones and Primary RN Romina notified that pt. is a moderate risk for suicide.
--- NOTE | 2024-02-20 14:32 | ECG_ITS ---
Test Date: 2024-02-20 14:39:06 Measurements Intervals [place] Rate: 65 P: 47 DC: 152 QRS: -17 QRSD: 88 T: 69 QT: 426 QTc: 446 Interpretive Statements SINUS RHYTHM NONSPECIFIC T-WAVE ABNORMALITY No previous ECG available for comparison Electronically Signed On 02-20-2024 14:41:27 [employer] by Lito Cook M.D.
--- NOTE | 2024-02-20 14:32 | PC.NURSE ---
pt states they are here for concern for seizure. pt states they have a hx of this and see neurology at [facility]. pt symptoms include tremor since yesterday and difficulty walking that started today. during initial assessment pt states they have hx of suicidal thoughts, last SI was 4 months ago. pt denies any SI in the last month to this RN
--- NOTE | 2024-02-20 14:35 | ED_ITS ---
HPI - Seizure General Chief Complaint: Weakness Stated Complaint: tremors Time Seen by Provider: 02/20/24 14:35 Source: patient Mode of arrival: ambulatory Limitations: no limitations History of Present Illness HPI Narrative: This is a 68-year-old female who presents to the ED for chief complaint of possible seizure like activity. Patient states that she was at home alone today with she had an episode of shaking. She felt very tremulous after taking her medications. She states realized that she missed her dose of her anti epileptics yesterday evening and started to have this episode today. She is unsure if she has a facial epilepsy diagnosis but does note that she follows with neurologist at [facility]. No recent changes to medications. States that she has had a couple of headaches that have been atypical lately however she is no longer having any headache. Denies fevers, chills, nausea, vomiting, numbness, weakness, neck stiffness, chest pain, shortness of breath abdominal pain. Seizure History: Yes Related Data Home Medications ?Medication ?Instructions ?Recorded ?Confirmed ?Last Taken ?Type Centrum Silver Women 1 tablet PO DAILY 03/30/19 05/17/23 Unknown History atorvastatin 80 mg tablet 80 mg PO DAILY 03/30/19 05/17/23 Unknown History citalopram 10 mg tablet 20 mg PO DAILY 03/30/19 05/17/23 Unknown History tofacitinib 11 mg tablet,extended 11 mg PO DAILY 03/30/19 05/17/23 Unknown History release 24 hr (Xeljanz XR) brivaracetam 50 mg tablet 150 mg PO QAM 02/16/21 05/17/23 Unknown History (Briviact) brivaracetam 100 mg tablet 100 mg PO HS 01/04/23 05/17/23 Unknown History (Briviact) Allergies Allergy/AdvReac Type Severity Reaction Status Date / Time gold Au 198 Allergy Mild Unknown Verified 02/16/21 01:33 Quinolones Allergy Mild Unknown Verified 02/16/21 01:33 ciprofloxacin (From Cipro) Allergy Unknown Other Verified 02/16/21 01:33 hydroxychloroquine Allergy Unknown Other Verified 02/16/21 01:33 sulfasalazine Allergy Unknown Unknown Verified 02/16/21 01:33 leflunomide AdvReac Unknown CONFUSION, Verified 02/16/21 01:33 GI UPSET Sulfa (Sulfonamide AdvReac Unknown NAUSEA Verified 02/16/21 01:33 Antibiotics) Review of Systems 2 Review of Systems: All systems as dictated in [facility] Past Medical History Medical History (Updated 02/20/24 @ 15:40 by Conrado Keene PA-C) Anemia Depression History of osteoporosis Rheumatoid arthritis UTI (urinary tract infection) Kidney stones Ovarian cancer GERD (gastroesophageal reflux disease) Diverticulitis Bronchitis HTN (hypertension) HLD (hyperlipidemia) Migraine Seizures Surgical History Surgical History Hx of bilateral hip replacements H/O wrist surgery H/O: hysterectomy H/O breast augmentation Family History Family History Mother Diabetes mellitus Father Heart disease Social History Social History Smoking status: Never smoker Alcohol intake: never Substance use: never Do You Feel Safe in your Home?: Yes Lack of Transportation: No Lack of Food: Never True Current Housing: I Have Housing Concerned About Future Housing: No Difficulty Paying Gas/Electric Bills: No Difficulty Paying for Meds: No Currently Unemployed: No Education: Bachelor's Degree Difficulty w/ Childcare or Family Care: No Spiritual care concerns: No Exam 2 Narrative: GENERAL: Well-appearing, well-nourished, and in no acute distress. HEAD: Normocephalic, atraumatic. EYES: PERRLA and EOMI. ENT: Nares clear, no rhinorrhea or epistaxis. Mucous membranes moist. Oropharynx without tonsillar hypertrophy exudate or other lesions. No oral mucosa or tongue lacerations. NECK: Supple. No adenopathy or masses. CHEST: No respiratory distress. Clear to auscultation. No wheezes rales or rhonchi HEART: Regular rate and rhythm. No murmur heard. Normal peripheral pulses. ABDOMEN: Soft, nontender, nondistended, normal active bowel sounds. MSK: Normal range of motion. No edema. SKIN: Warm, dry, no rash. NEURO: Alert and oriented x4. No focal deficits. 5/5 strength and sensation in the upper and lower extremities. PSYCH: Normal mood and affect. Course Vital Signs Vital signs: Vital Signs Pulse Rate 82 02/20/24 14:13 Respiratory Rate 17 02/20/24 14:13 Blood Pressure 122/76 02/20/24 14:13 Pulse Oximetry 97 02/20/24 14:13 Temperature 97.2 F L 02/20/24 14:14 Pulse Rate 65 02/20/24 16:38 Respiratory Rate 14 02/20/24 16:38 Blood Pressure 140/71 02/20/24 16:38 Pulse Oximetry 98 02/20/24 16:38 Oxygen Delivery Room Air 02/20/24 14:35 MDM - Seizure MDM Narrative Medical decision making narrative: This is a 68-year-old female who presents to the ED for episode of shaking today. Vitals are normal. Exam is benign. Does not appear to be postictal. Lab work is grossly unremarkable. Lactic acid is normal. CT shows interval development of calcification but appears benign. Do not feel this is related to the patient's presentation today. EKG shows normal sinus rhythm. Patient was loaded with dose of Keppra for possible breakthrough seizure, however presentation is very doubtful for a seizure. Does not appear to be cardiac syncope. She is well-appearing on re-evaluation. Patient will be discharged in stable condition. Supportive measures discussed and return precautions given. Patient is understanding and agreeable with plan for discharge with PCP follow-up. Lab Data 02/20/24 14:49 02/20/24 14:49 Labs: Lab Results 02/20/24 02/20/24 02/20/24 Range/Units 14:17 14:49 15:39 WBC 7.4 (4.5-10.0) K/mm3 RBC 4.43 (4.2-5.4) M/mm3 Hgb 13.4 (12.0-15.0) g/dL Hct 41.1 (37.0-47.0) % MCV 92.8 (80-100) fl MCH 30.2 (26-34) pg MCHC 32.6 (32-36) g/dl RDW 13.9 (11.5-14.5) % Plt Count 336 (150-375) k/mm3 MPV 9.3 (7.4-10.4) fl Immature Gran % (Auto) 0.8 H (0-0.5) % Neut % (Auto) 89.4 H (45.5-73.1) % Lymph % (Auto) 5.8 L (18.3-44.2) % [place] % (Auto) 3.6 (2.6-8.5) % Eos % (Auto) 0.1 (0-4.4) % Baso % (Auto) 0.3 (0.2-1.2) % Lymph # (Auto) 0.43 L (0.9-3.2) K/mm3 [place] # (Auto) 0.3 (0.1-0.6) K/mm3 Eos # (Auto) 0.0 (0-0.3) K/mm3 Baso # (Auto) 0.0 (0.0-0.1) K/mm3 Abs Immat Gran (auto) 0.06 H (0.00-0.031) K/mm3 Absolute Neuts (auto) 6.6 (1.3-6.7) K/mm3 Absolute Nucleated RBC 0.000 (0.0-0.012) K/mm3 Nucleated RBC % 0.0 (0.0-0.2) % Sodium 138 (137-145) mmol/L Potassium 4.6 (3.4-5.0) mmol/L Chloride 108 H (98-107) mmol/L Carbon Dioxide 28 (22-30) mmol/L Anion Gap 2 L (4-12) mmol/L BUN 15 (7-17) mg/dL Creatinine 0.70 (0.7-1.0) mg/dL Estim Creat Clear Calc 57 ml/min Estimated GFR > 60 (59 - ) Glucose 112 H (65-110) mg/dL POC Capillary Glucose 117 H (65-105) mg/dl Lactic Acid 1.6 (0.7-2.0) mmol/L Calcium 9.4 (8.4-10.2) mg/dL Total Bilirubin 0.5 (0.2-1.3) mg/dL AST 35 (14-36) U/L ALT 30 (6-35) U/L Alkaline Phosphatase 89 (38-126) U/L Total Protein 7.0 (6.3-8.2) g/dL Albumin 4.2 (3.5-5.1) g/dL Urine Color (Yellow) Urine Appearance (Clear) Urine pH (5.0-9.0) Ur Specific [place] (1.001-1.035) Urine Protein (Negative) mg/dL Urine Glucose (UA) (Negative) mg/dL Urine Ketones (Negative) mg/dL Ur Blood (Man) (Negative) Urine Nitrate (Negative) Urine Bilirubin (Negative) Urine Urobilinogen (<2.0) mg/dL Add Ur Microanalysis Leukocyte Esterase Rfl (Negative) KOBE/UL Urine RBC (0-2) /hpf Urine WBC (0-3) /hpf Ur Squamous Epith Cells (Few) /hpf Urine Bacteria /hpf Urine Casts //24 Range/Units 16:38 WBC (4.5-10.0) K/mm3 RBC (4.2-5.4) M/mm3 Hgb (12.0-15.0) g/dL Hct (37.0-47.0) % MCV (80-100) fl MCH (26-34) pg MCHC (32-36) g/dl RDW (11.5-14.5) % Plt Count (150-375) k/mm3 MPV (7.4-10.4) fl Immature Gran % (Auto) (0-0.5) % Neut % (Auto) (45.5-73.1) % Lymph % (Auto) (18.3-44.2) % [place] % (Auto) (2.6-8.5) % Eos % (Auto) (0-4.4) % Baso % (Auto) (0.2-1.2) % Lymph # (Auto) (0.9-3.2) K/mm3 [place] # (Auto) (0.1-0.6) K/mm3 Eos # (Auto) (0-0.3) K/mm3 Baso # (Auto) (0.0-0.1) K/mm3 Abs Immat Gran (auto) (0.00-0.031) K/mm3 Absolute Neuts (auto) (1.3-6.7) K/mm3 Absolute Nucleated RBC (0.0-0.012) K/mm3 Nucleated RBC % (0.0-0.2) % Sodium (137-145) mmol/L Potassium (3.4-5.0) mmol/L Chloride (98-107) mmol/L Carbon Dioxide (22-30) mmol/L Anion Gap (4-12) mmol/L BUN (7-17) mg/dL Creatinine (0.7-1.0) mg/dL Estim Creat Clear Calc ml/min Estimated GFR (59 - ) Glucose (65-110) mg/dL POC Capillary Glucose (65-105) mg/dl Lactic Acid (0.7-2.0) mmol/L Calcium (8.4-10.2) mg/dL Total Bilirubin (0.2-1.3) mg/dL AST (14-36) U/L ALT (6-35) U/L Alkaline Phosphatase (38-126) U/L Total Protein (6.3-8.2) g/dL Albumin (3.5-5.1) g/dL Urine Color Yellow (Yellow) Urine Appearance Clear (Clear) Urine pH 8.5 (5.0-9.0) Ur Specific [place] 1.012 (1.001-1.035) Urine Protein Negative (Negative) mg/dL Urine Glucose (UA) Negative (Negative) mg/dL Urine Ketones Negative (Negative) mg/dL Ur Blood (Man) Negative (Negative) Urine Nitrate Negative (Negative) Urine Bilirubin Negative (Negative) Urine Urobilinogen 0.2 (<2.0) mg/dL Add Ur Microanalysis Reviewed Leukocyte Esterase Rfl Trace H (Negative) KOBE/UL Urine RBC 6-10 H (0-2) /hpf Urine WBC 0-5 (0-3) /hpf Ur Squamous Epith Cells None seen (Few) /hpf Urine Bacteria None seen /hpf Urine Casts 0-2 ECG Data EKG #1: ECG completion date: 02/20/24 ECG completion time: 14:39 Prior ECG tracings: available for review Interpretation: Sinus rhythm Rate 65 QTC normal QRS normal No acute ischemic findings Discharge Plan Discharge Clinical Impression: Episode of shaking Patient Disposition: Home, Self-Care Condition: Stable Instructions: Antibiotic Form Additional Instructions: Your exam today is reassuring overall. Please follow-up closely with Neurology on this issue. Continue taking your medications as prescribed. If you have any new or worsening symptoms please return to the ER for further evaluation. Patient Language: Belarusian Prescriptions: No Action atorvastatin 80 mg tablet 80 mg PO DAILY citalopram 10 mg tablet 20 mg PO DAILY Xeljanz XR 11 mg tablet extended release 24 hr 11 mg PO DAILY Centrum Silver Women 1 tablet PO DAILY Briviact 50 mg Tablet 150 mg PO QAM sucralfate 100 mg/mL Suspension 1,000 mg PO ACHS Qty: 100 0RF pantoprazole [Protonix] 20 mg tablet,delayed release (DR/EC) 20 mg PO HS Qty: 30 0RF Briviact 100 mg tablet 100 mg PO HS omeprazole 40 mg capsule,delayed release(DR/EC) 40 mg PO DAILY Qty: 30 0RF lamotrigine [Lamictal] 100 mg Tablet 300 mg PO QAM Qty: 30 0RF lamotrigine [Lamictal] 100 mg Tablet 200 mg PO QHS Qty: 30 0RF Follow-up/Referrals: Mukund Jaffe [Primary Care Provider] - Time of Disposition: 16:54
[2024-02-20 15:01] LABS: Basophils Percent Auto 0.3 % (0.2-1.2); Eosinophils Percent Auto 0.1 % (0-4.4); Hematocrit 41.1 % (37.0-47.0); Hemoglobin 13.4 g/dL (12.0-15.0); Immature Granulocyte Absolute 0.06 K/mm3 (0.00-0.031); Immature Granulocyte Percent A 0.8 % (0-0.5); Lymphocytes Absolute Auto 0.43 K/mm3 (0.9-3.2); Lymphocytes Percent Auto 5.8 % (18.3-44.2); Mean Corpuscular HGB Conc 32.6 g/dl (32-36); Mean Corpuscular Hemoglobin 30.2 pg (26-34); Mean Corpuscular Volume 92.8 fl (80-100); Mean Platelet Volume 9.3 fl (7.4-10.4); Monocytes Absolute Auto 0.3 K/mm3 (0.1-0.6); Monocytes Percent Auto 3.6 % (2.6-8.5); Neutrophils Absolute Auto 6.6 K/mm3 (1.3-6.7); Neutrophils Percent Auto 89.4 % (45.5-73.1); Platelet Count Result 336 k/mm3 (150-375); Red Blood Count 4.43 M/mm3 (4.2-5.4); Red Cell Distribution Width 13.9 % (11.5-14.5); White Blood Count 7.4 K/mm3 (4.5-10.0)
[2024-02-20 15:07] LABS: Alanine Aminotransferase 30 U/L (6-35); Albumin Level 4.2 g/dL (3.5-5.1); Alkaline Phosphatase 89 U/L (38-126); Anion Gap 2 mmol/L (4-12); Aspartate Amino Transferase 35 U/L (14-36); Bilirubin,Total 0.5 mg/dL (0.2-1.3); Blood Urea Nitrogen 15 mg/dL (7-17); Calcium 9.4 mg/dL (8.4-10.2); Carbon Dioxide 28 mmol/L (22-30); Chloride 108 mmol/L (98-107); Estimated CRCL calculation 57 ml/min; Estimated Glomerular Filt Rate > 60; Glucose 112 mg/dL (65-110); Potassium 4.6 mmol/L (3.4-5.0); Sodium 138 mmol/L (137-145)
[2024-02-20 15:53] LABS: Lactic Acid Reflex 1.6 mmol/L (0.7-2.0)
[2024-02-20] MEDS: levETIRAcetam 1500MG/NACL100ML 1,500 MG/100 ML BAG 400 MG IVPB (16:26)
[2024-02-20 17:08] LABS: Add Urine Microscopic? YES; Appearance Urine Clear (Clear); Bacteria Urine None Seen /hpf; Bilirubin Urine Negative (Negative); Blood Urine Negative (Negative); Color Urine Yellow (Yellow); Glucose Urine UA Negative (Negative); Ketones Urine Negative (Negative); Leukocyte Esterase Ur Trace LEU/UL (Negative); Need Manual Microscopic Reviewed; Nitrate Urine Negative (Negative); Non Pathogenic Casts 0-2; Protein Urine Negative (Negative); Specific Grav Ur 1.012 (1.001-1.035); Squamous Epithelial Cell Urine None Seen /hpf (Few); Urobilinogen Urine 0.2 mg/dL (<2.0); WBC Urine 0-5 /hpf (0-3); pH Urine 8.5 (5.0-9.0)
== END 2024-02-20 17:47 | disposition home or self-care (01) ==
PROVIDERS: Emergency Provider Physician Assistant
DX: R25.1 Tremor, unspecified (principal); Z85.43 Personal history of malignant neoplasm of ovary; K21.9 Gastro-esophageal reflux disease without esophagitis; I10 Essential (primary) hypertension; E78.5 Hyperlipidemia, unspecified
CPT/HCPCS: 36415; 70450; 71046; 80053; 81001; 82948; 83605; 85025; 93005; 96374; 99284; J1953

== ENCOUNTER 2024-12-02 16:38 | Emergency (ER) | payer MEDICARE, SELFPAY ==
--- NOTE | ~2024-12-02 | XR_ITS ---
Examination: XR chest 2V Clinical History: cough Comparison: 02/20/2024 Technique: PA and Lateral Findings: Cardiomediastinal silhouette normal size and configuration. Lungs clear. No acute bony abnormality. IMPRESSION: 1. No acute cardiopulmonary findings. Reviewed, dictated and finalized at location R.
--- NOTE | ~2024-12-02 | CT_ITS ---
CTA CHEST CLINICAL HISTORY: sob, elevated dimer . COMPARISON: Chest x-rays earlier same day TECHNIQUE: Helical CTA performed from thoracic inlet to upper abdomen 100 mL Omnipaque 350 Coronal, sagittal reformats. Multiplanar MIPS CT images acquired with automatic exposure control for dose reduction DLP: 341 mGy-cm FINDINGS: Extensive streak artifact from shoulder prostheses and respiratory motion artifact. Pulmonary arteries: No PE identified. Thoracic Aorta: No dissection or aneurysm. Atherosclerotic disease. Heart/pericardium: Coronary artery calcification. RV/LV ratio: Normal. Lungs/Pleura: Dependent bibasilar atelectasis. Tracheobronchial tree: Patent. Nodes: No enlarged nodes. Bones: Compression fracture C6. Compression fracture C5 with cement augmentation. Focal kyphosis at this level. Soft tissues: Unremarkable. Visualized upper abdomen: Unremarkable. IMPRESSION: 1. No PE or other acute cardiopulmonary findings. Reviewed, dictated and finalized at location R.
--- OUTSIDE RECORDS SUMMARY | 2024-12-02 16:40 | XMS_ITS | Encounter Summary ---
Author Organization [facility] Address [address] [place] [address] Phone Care Team Providers Care Contact Assembler Name Role Phone Esme Jaffe MD Unavailable [phone] Esme Jaffe MD Primary Care Provider + Jaun Roque DPM Unavailable [phone] No, Physician Unavailable Waqar Heller DPM Unavailable Daina Latif MD Unavailable [phone] Minda Stoddard MD Unavailable Encounter Details Date Type Department Care Team (Latest Contact Info) Description 11/30/2022 Orders Only [facility] Scanning, Provider Social History Tobacco Use Types Packs/Day Years Used Date Smoking Tobacco: Never Smokeless Tobacco: Never Alcohol Use Standard Drinks/Week Comments Yes 0 (1 standard drink = 0.6 oz pur e alcohol) rarely Social Connection and Isolation Panel Answer Date Recorded Frequency of Communication with Friends and Fami ly Twice a week 04/02/2019 Frequency of Social Gatherings with Friends and Family Once a week 04/02/2019 Attends Taoist Services Never 04/02 Active Member of Clubs or Organizations No 04/02/2019 Attends Club or Organization Meetings Never 04/02/2019 Marital Status Never 04/02/2019 AUDIT-C Answer Date Recorded Q1: How often do you have a drink containing alc ohol? Monthly or less 08/17/2021 Average Number of Drinks Not on file 022 Frequency of Binge Drinking Not on file 07/29 Overall Financial Resource Strain (CARDIA) Answe r Date Recorded Difficulty of Paying Living Expenses Not very bedolla rd 04/02/2019 PHQ-2 Answer Date Recorded PHQ-2 Total Score (If total score is 3 or more points, staff should administer the PHQ-9) 6 03/08/2022 PRAPARE - Transportation Answer Date Re corded Lack of Transportation (Medical) No 04/02/2019 Lack of Transportation (Non-Medical) No 04/02/2019 Comments No Sex and Gender Information Value Date Recorded Sex Assigned at Not on file Legal Sex Female 11:34 PM 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 Gender Identity Not on file Sexual Orientation Straight 03/03/2021 11 :19 AM 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 documented as of this encounter Plan of Treatment Not on file documented as of this encounter Procedures Procedure Name Priority Date/Time Associated Diagnosis Comments SCAN - RADIOLOGY/IMAGING 11/30/2022 documented in this encounter Results * SCAN - RADIOLOGY/IMAGING (11/30/2022) Anatomical Region Laterality Modality Other us Provider Scanning Final Result documented in this encounter Visit Diagnoses Not on filedocumented in this encounter Care Teams Contact Assembler Relationship Specialty Start Date End Date Esme Jaffe MD PCP - General Internal Medicine 03/13/18 Esme Jaffe MD 03/05/18 Jaun Roque DPM Consulting Physician Orthotics 04/09/19 No, Physician 04/09/19 Waqar Heller DPM [id number] [place] [address] Consulting Physician Orthopedic Surgery 06/17/20 Daina Latif MD [address] [facility] [place] [id number] [place] [address] Resident Psychiatry 07/29/24 08/23/24 Minda Stoddard MD [address] [facility] [place] [id number] [place] [address] Resident Psychiatry 09/06/24 08/26/25 documented as of this encounter
--- OUTSIDE RECORDS SUMMARY | 2024-12-02 16:40 | XMS_ITS | Clinical Summary ---
Author Organization [facility] Address [address] [place] [address] Care Team Providers Care Clerical Associate Name Role Phone Esme Baez MD Unavailable Esme Baez MD Primary Care Provider + Jaun Roque DPM Unavailable [phone] No, Physician Unavailable Waqar Heller DPM Unavailable Minda Stoddard MD Unavailable Allergies Active Allergy Reactions Criticality Noted Date Comments Adhesive Blisters High 05/29/2020 Bupropion Unknown 11/16/2019 Ciprofloxacin Anaphylaxis High 11/27/2006 Escitalopram Diarrhea Low 10/31/2024 Gold Salts Unknown 03/05/2018 Hydroxychloroquine Unknown 03/05/2018 Leflunomide Unknown Low Mirtazapine Unknown 11/16/2019 Sulfa (Sulfonamide Antibiotics) Nausea & Vomiting Low 11/28/2006 Medications aspirin 81 mg enteric coated tabletIndicatio ns:Myocardial Reinfarction Prevention Take 1 tablet (81 mg total) by mouth daily Active multivitamin capsuleIndicati ons:Vitamin Deficiency Take 1 capsule by mouth daily Active omeprazole (PriLOSEC) 40 mg capsuleIndicati ons:Stress Ulcer Prophylaxis Take 1 capsule (40 mg total) by mouth daily 90 capsule 1 05/25/19 25 Active atorvastatin (LIPITOR) 80 mg tabletIndicatio ns:coronary artery disease TAKE 1 TABLET BY MOUTH DAILY 90 tablet 1 07/13/19 25 Active esketamine (Spravato) 14 mg/actuation nasal spray Administer 2 sprays into each nostril 2 (two) times a week 2 each 2 08/06/19 25 Active olmesartan (BENICAR) 5 mg tabletIndicatio ns:Hypertension , essential Take 1 tablet (5 mg total) by mouth daily 30 tablet 11 08/24/19 25 026 Active methylPREDNISol one (MEDROL) 4 mg tabletIndicatio ns:autoimmune disease Take 1 tablet (4 mg total) by mouth daily 90 tablet 1 09/28/19 25 Active brivaracetam (Briviact) 100 mg tablet Take 0.5 tablets (50 mg total) by mouth every morning AND 1 tablet (100 mg total) nightly. 135 tablet 1 10/15/19 25 026 Active ARIPiprazole (ABILIFY) 5 mg tabletIndicatio ns:Depression Treatment Adjunct Take 1 tablet (5 mg total) by mouth daily (for depression) 30 tablet 1 11/12/19 25 Active upadacitinib (RINVOQ) 15 mg extended release tabletIndicatio ns:Rheumatoid Arthritis Take 1 tablet (15 mg total) by mouth daily 30 tablet 5 11/16/19 25 Active lamoTRIgine (LaMICtal) 200 mg tablet Take 1 tablet (200 mg total) by mouth 2 (two) times a day 60 tablet 2 11/28/19 25 025 Active ARIPiprazole (ABILIFY) 5 mg tabletIndicatio ns:Depression Treatment Adjunct Take 1 tablet (5 mg total) by mouth daily (for depression) 30 tablet 1 08/23/19 25 025 Discontinued lamoTRIgine (LaMICtal) 200 mg tabletIndicatio ns:Gamaliel-Gasta ut Epilepsy Take 1.5 tablets (300 mg total) by mouth daily AND 1 tablet (200 mg total) nightly. 225 tablet 3 09/24/19 25 025 Discontinued upadacitinib (RINVOQ) 15 mg extended release tabletIndicatio ns:Rheumatoid Arthritis Take 1 tablet (15 mg total) by mouth daily 30 tablet 2 10/10/19 25 025 Discontinued(R eorder) ARIPiprazole (ABILIFY) 2 mg tablet Take 1 tablet (2 mg total) by mouth daily 30 tablet 11/12/19 25 025 Discontinued lamoTRIgine (LaMICtal) 200 mg tablet TAKE 1/2 TABLET BY MOUTH DAILY AND TAKE 1 TABLET BY MOUTH NIGHTLY 45 tablet 6 11/16/19 25 025 Discontinued(R eorder) Hospital, Clinic, or Other Facility Administered Medication Ordered Dose Route Frequency Start Date End Date Status esketamine (SPRAVATO) 14 mg/actuation nasal spray 2 sprayIndications:S evere episode of recurrent major depressive disorder, without psychotic features (HCC) 2 spray each nostril Once per day on Monday09/09/2024 Active Active Problems Problem Noted Date Diagnosed Date Confusion 11/22/2024 Overview (11/22/2024): The patient is accompanied by her friend during today's visit for URI symptoms and cough. Upon entering the room the patient is trying to leave- fidgeting and repeating okay, let's go. The patient cannot state her , her friend's name, the year, or where she is located. It is difficult to redirect the patient. The patient's friend states I think she just had a seizure and reports the patient's 'seizures' are not like typical seizures- no rhythmic movements, loss of bowel/bladder. The patient's friend states she has not witnessed one of these episodes in a long time. The patient begins to follow simple commands and correctly states her friend's name. No weakness, slurred speech, facial droop, or pupil changes. Lungs CTA bilaterally and CV RRR. The patient continues to remained confused and appears worried. Concerned for UTI vs Pneumonia vs post ictal state vs TIA. Encouraged evaluation at the ED. Patient's friend states she will take her to [facility]. Suicidal ideation 07/16/2024 Allergic rhinitis 07/13/2024 Assessment & Plan (07/15/2024 9:57 AM CDT): - Zyrtec 10mg Po qday for allergies Assessment & Plan (07/13/2024 2:07 PM CDT): - Zyrtec 10mg Po qday for allergies Asymptomatic bacteriuria 07/13/2024 Assessment & Plan (07/15/2024 9:57 AM CDT): Has LE, WBCs, RBCs and trace bacteria in UA. Denying all symptoms. PLAN - CTM, no indication for treatment. Assessment & Plan (07/13/2024 2:08 PM CDT): Has LE, WBCs, RBCs and trace bacteria in UA. Denying all symptoms. PLAN - CTM, no indication for treatment. Severe episode of recurrent major depressive disorder, without psychotic features 03/19/2024 Assessment & Plan (07/25/2024 8:54 AM CDT): Ms. Parrish has a longstanding history of severe depression with suicidal ideation and now with x2 suicide attempts in the past 6 months. Current presentation is valle-positive for depressive symptoms and MSE is notable for dysthymic restricted affect with persistent suicidal ideation. Based on this and lack of manic symptoms or psychotic features, her formal diagnosis is major depressive disorder, recurrent episode, severe, without psychotic features. Outpatient PCP just started Abilify for augmentation but patient has not yet taken it. Given severity of illness, ECT consult is appropriate for rapid intervention and for failing multiple medications outpatient. Will continue current medications and consult ECT on Monday. Improving. Treatment Summary: Treatment # Date Loading Dose Maintenance Dose Frequency QIDS: 13 07/19/24 0.5 mg/kg x 10 min 0.3 mg/kg/hr x 50 min 2 times weekly QIDS: 18 07/24/24 0.5 mg/kg x 10 min 0.3 mg/kg/hr x 50 min 2 times weekly PLAN - 0.1 clonadine 2 hrs before ketamine treatments due to hypertension - Continue escitalopram 10mg PO qday on 07/16/24 - Continue Abilify 5mg PO qday for MDD - Ketamine inpatient starting Monday Assessment & Plan (07/13/2024 11:12 AM CDT): >>ASSESSMENT AND PLAN FOR MAJOR DEPRESSIVE DISORDER WITH CURRENT ACTIVE EPISODE WRITTEN ON 03/07/2018 1:20 PM BY MARÍA BONILLA MD - Continue Lexapro 10 mg PO QD Assessment & Plan (07/13/2024 11:12 AM CDT): >>ASSESSMENT AND PLAN FOR MAJOR DEPRESSIVE DISORDER WITH CURRENT ACTIVE EPISODE WRITTEN ON 03/06/2018 2:27 PM BY MARÍA BONILLA MD - Continue Lexapro 10 mg PO QD Assessment & Plan (07/13/2024 11:12 AM CDT): >>ASSESSMENT AND PLAN FOR MAJOR DEPRESSIVE DISORDER WITH CURRENT ACTIVE EPISODE WRITTEN ON 03/05/2018 12:52 PM BY MARÍA BONILLA MD - Continue Lexapro 10 mg PO QD Assessment & Plan (07/13/2024 11:12 AM CDT): >>ASSESSMENT AND PLAN FOR MAJOR DEPRESSIVE DISORDER WITH CURRENT ACTIVE EPISODE WRITTEN ON 03/08/2018 2:11 PM BY DERRELL WEATHERS MD - Continue Lexapro 10 mg PO QD Assessment & Plan (07/13/2024 11:12 AM CDT): >>ASSESSMENT AND PLAN FOR MAJOR DEPRESSIVE DISORDER WITH CURRENT ACTIVE EPISODE WRITTEN ON 05/28/2018 9:37 AM BY ALISHA ALANIS MD - Continue citalopram. Assessment & Plan (07/13/2024 11:12 AM CDT): >>ASSESSMENT AND PLAN FOR MAJOR DEPRESSIVE DISORDER WITH CURRENT ACTIVE EPISODE WRITTEN ON 05/27/2018 12:38 PM BY CATHIE ATKINSON MD -Cont citalopram Assessment & Plan (07/13/2024 11:12 AM CDT): >>ASSESSMENT AND PLAN FOR MAJOR DEPRESSIVE DISORDER WITH CURRENT ACTIVE EPISODE WRITTEN ON 05/26/2018 2:17 AM BY IMAN ERAZO MD -Cont citalopram Assessment & Plan (07/13/2024 2:06 PM CDT): Ms. Parrish has a longstanding history of severe depression with suicidal ideation and now with x2 suicide attempts in the past 6 months. Current presentation is valle-positive for depressive symptoms and MSE is notable for dysthymic restricted affect with persistent suicidal ideation. Based on this and lack of manic symptoms or psychotic features, her formal diagnosis is major depressive disorder, recurrent episode, severe, without psychotic features. Outpatient PCP just started Abilify for augmentation but patient has not yet taken it. Given severity of illness, ECT consult is appropriate for rapid intervention and for failing multiple medications outpatient. Will continue current medications and consult ECT on Monday PLAN - Continue escitalopram 10mg PO qday for MDD - Continue Abilify 5mg PO qday for MDD - ECT consult 07/15 History of Clostridium difficile infection 07/08 Overview (07/08/2022): multiple episodes in [id number] with several hospitalizations and ICU stays. She was in a study using monoclonal antibodies to C. difficile toxin (didn't seem to work for her), and had multiple prolonged courses of vancomycin. She also had a course of Flagyl spring 2014. Most recent episodes Feb & April 2018, Rx prolonged vancomycin taper Hx positive C. difficile assays (with sx) - - July 2012, Oct 2012, February 2013, April 2013, June 2013, August 2013, May 2014, June 2014, Feb 2018, Apr 2018 History of anemia of chronic disease 07/08/2022 Seropositive rheumatoid arthritis of multiple geovanny ints 07/13/2021 Assessment & Plan (07/15/2024 9:56 AM CDT): - Continue Medrol 4mg PO for RA - Continue Xeljanz 11mg PO qday for RA Assessment & Plan (07/13/2024 11:18 AM CDT): - Continue Medrol 4mg PO for RA - Continue Xeljanz 11mg PO qday for RA Assessment & Plan (04/26/2023 6:33 PM FLIGHT OPERATIONS INSPECTOR): Today I am not seeing evidence of active synovitis while she is taking Xeljanz. I reviewed multiple notes of Dr. Baez in the intervening time between when I last saw her and many reflects that she was not taking it. I discussed with her that she has very little articular reserve and that our choices were to either continue this since it has the advantage of when she has an infection that it can be stopped with complete clearance fairly rapidly but alternatively if she is willing to come back and be evaluated off Xeljanz that if her disease is burned-out but she does not necessarily have to take it on a regular basis. I discussed her steroid use with her and she states that she is tried to taper slowly and she always ends up back on this dose and really does not seem to have significant interested in tapering it. I discussed with her that uncontrolled disease could result in loss of independence due to inability to perform activities of daily living and she has multiple medical comorbidities that also contribute to this. She has not had laboratories to ascertain whether she is having cytopenias or worsening renal or hepatic function in over a year and I have replaced these for her to have them performed before refilling additional Xeljanz Chronic pain 09/03/2019 Immunocompromised state due to drug therapy 03/31 Temporal lobe epilepsy 07/30/2018 Overview (11/22/2024): Dx 2015 Assessment & Plan (07/15/2024 9:56 AM CDT): - Continue Briviact 50 qAM + 100 qHS PO for temporal lobe epilepsy - Continue lamotrigine 300 qAM + 200 qHS PO for temporal lobe epilepsy Assessment & Plan (07/13/2024 11:17 AM CDT): - Continue Briviact 50 qAM + 100 qHS PO for temporal lobe epilepsy - Continue lamotrigine 300 qAM + 200 qHS PO for temporal lobe epilepsy Assessment & Plan (04/02/2019 3:06 AM FLIGHT OPERATIONS INSPECTOR): Continue home lamictal 500mg daily; was concern for seizure activity in the ER on Monday, but there has been no concern for since. Place on seizure precautions. Assessment & Plan (05/28/2018 9:41 AM CDT): - Continue Lamictal at home dose. Assessment & Plan (05/27/2018 12:39 PM CDT): -Cont Lamictal Assessment & Plan (05/26/2018 2:18 AM CDT): -Cont Lamictal Assessment & Plan (03/08/2018 2:10 PM FLIGHT OPERATIONS INSPECTOR): Diagnosed in February of 2014. 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 Lamictal recently increased to 400 mg P QD from 300 mg PO QD in setting of half hour long episodes of confusion, dysathria and lethargy. Follow with Dr. Guzman. - continue lamictal 400 mg PO QD Assessment & Plan (03/07/2018 1:20 PM FLIGHT OPERATIONS INSPECTOR): Diagnosed in February of 2014. 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 Lamictal recently increased to 400 mg P QD from 300 mg PO QD in setting of half hour long episodes of confusion, dysathria and lethargy. Follow with Dr. Guzman. - continue lamictal 400 mg PO QD Assessment & Plan (03/06/2018 2:27 PM FLIGHT OPERATIONS INSPECTOR): Diagnosed in February of 2014. 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 Lamictal recently increased to 400 mg P QD from 300 mg PO QD in setting of half hour long episodes of confusion, dysathria and lethargy. Follow with Dr. Guzman. - continue lamictal 400 mg PO QD Assessment & Plan (03/05/2018 12:39 PM FLIGHT OPERATIONS INSPECTOR): Diagnosed in February of 2014. 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 Lamictal recently increased to 400 mg P QD from 300 mg PO QD in setting of half hour long episodes of confusion, dysathria and lethargy. Follow with Dr. Guzman. - continue lamictal 400 mg PO QD Metabolic acidosis, normal anion gap (NAG) 05/26 Assessment & Plan (05/28/2018 9:39 AM CDT): - Resolved. - 2/2 GI loses. Assessment & Plan (05/27/2018 12:39 PM CDT): -Resolved Assessment & Plan (05/26/2018 2:18 AM CDT): -Likely 2/2 GI losses/diarrhea Prediabetes 11/19/2017 Current chronic use of systemic steroids [facility] Preventative health care 08/18/2017 Callus of foot 01/12/2017 Tendinitis of foot 01/12/2017 Unsteady gait 12/13/2016 Melanocytic nevus 09/26/2016 Seborrheic keratoses 09/26/2016 Telangiectasia 09/26/2016 Shoulder injury 08/26/2016 Peripheral vascular disease 08/06/2016 Assessment & Plan (07/15/2024 9:56 AM CDT): - Continue atorvastatin 80mg PO qday for HLD/PVD - Continue ASA 81mg PO qday for PVD Assessment & Plan (07/13/2024 10:58 AM CDT): - Continue atorvastatin 80mg PO qday for HLD/PVD - Continue ASA 81mg PO qday for PVD Achillodynia 06/28/2016 High risk medications (not anticoagulants) long- term use 11/27/2015 Chronic bilateral thoracic back pain 08/25/2015 Nephrolithiasis 05/06/2015 Gross hematuria 03/24/2015 Osteoporosis 12/29/2014 Basilar invagination 12/22/2014 Osteoarthritis of cervical spine with myelopathy 12/22/2014 Skin callus 05/08/2014 Hypertrophic toenail 05/08/2014 Onychomycosis of toenail 05/08/2014 Pancreatic mass 12/26/2013 Arthritis 06/12/2012 Mild cognitive impairment 05/08/2012 Osteoarthritis of multiple joints 05/29/2010 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 Assessment & Plan (04/26/2023 11:17 AM FLIGHT OPERATIONS INSPECTOR): Since she seems to have difficulty with appointments, I am going to update her bone densities and assist with treatment of her steroid induced osteoporosis until she has an appointment with bone metabolism Calcific coronary arteriosclerosis 10/28/2008 Pes planus 10/22/2008 Hammer toe 10/22/2008 Migraine headache 06/01/2007 Assessment & Plan (07/15/2024 9:56 AM CDT): - Mgmt per temporal lobe epilepsy Assessment & Plan (07/13/2024 11:16 AM CDT): - Mgmt per temporal lobe epilepsy Hypertension, essential 11/28/2006 Assessment & Plan (04/02/2019 3:05 AM FLIGHT OPERATIONS INSPECTOR): Not on meds at home - will follow and start meds prn Hyperlipidemia, mixed 11/28/2006 Gastroesophageal reflux disease 11/28/2006 Assessment & Plan (07/15/2024 9:56 AM CDT): - Continue PPI: pantoprazole 40mg PO qday for GERD (omeprazole not on formulary) Assessment & Plan (07/13/2024 11:16 AM CDT): - Continue PPI: pantoprazole 40mg PO qday for GERD (omeprazole not on formulary) History of ovarian cancer Overview (06/10/2018): 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, N0, [place]; S/P surgery, chemo, no XRT Resolved Problems Problem Noted Date Diagnosed Date Resolved Date Osteomyelitis of fifth toe of right foot 04/25/2019 03/19/2024 Cellulitis of right leg 04/01/201906/27 Assessment & Plan (04/01/2019 2:45 PM FLIGHT OPERATIONS INSPECTOR): -right lower leg consistent with cellulitis -she has failed outpatient treatment with keflex and is having some systemic symptoms which pose concern for sepsis -recommended she go to [facility] ER for further evaluation, IV antibiotics, and likely admission -report called to EUSEBIA Bañuelos -patient being transported by her sister, Madina -Dr. Baez was notified while patient was in the office and is in agreement with plan of care Colitis 05/26/2018 05/27/2018 Assessment & Plan (05/26/2018 2:24 AM CDT): -Pt presenting with nausea, crampy abdominal pain, and diarrhea x [address] A/P read as showing findings of mild colitis in the transverse and sigmoid colon, as well as likely mild diverticulitis in the ascending colon. Colitis is likely infectious in etiology and could potentially represent recurrent Cdiff. She does have celiac artery narrowing noted on CT, however location of colitis is not in the distribution of the celiac artery and have low suspicion for ischemic colitis at this time. -Check Cdiff, stool cx -IVF Nasal discharge 08/09/2016 04/02/2019 Chronic foot ulcer 06/29/2015 5 Assessment & Plan (03/22/2018 2:59 PM FLIGHT OPERATIONS INSPECTOR): Hx of chronic R lower ext foot ulcer with worsening erythema and pain spreading up foot. Trialed on 2 days of oral keflex and admitted for inpatient management. -patient has PAD on doppler. Asymptomatic. Likely cause of poor healing. -to follow with Dr. Lopez. Spoke with him. -wound care consulted. Nurse to provide instruction and supplies to patient. Assessment & Plan (03/21/2018 8:51 PM FLIGHT OPERATIONS INSPECTOR): Hx of chronic R lower ext foot ulcer with worsening erythema and pain spreading up foot. Trialed on 2 days of oral keflex and admitted for inpatient management. -vital signs stable, nontoxic appearing but with progressive erythema. Start IV vancomycin. ID consult per outpatient team request (per note) -recent xray 03/19 without osteo. Will defer repeating. Recent blood cx 03/19 ngtd. -pulses dopplerable. Ordered ABIs, hiv, [id number]. Poor healing in part secondary to steroids? -wound nurse consult. Touch base with Dr. Lopez of podiatry as he directly admitted patient. Pain of foot 06/25/2014 04/02/2019 Rheumatoid arthritis 019 Assessment & Plan (03/22/2018 2:55 PM FLIGHT OPERATIONS INSPECTOR): Has been taking medrol 2mg daily, will cont. Xeljanz on hold with active infection. Assessment & Plan (03/21/2018 8:43 PM FLIGHT OPERATIONS INSPECTOR): Has been taking medrol 2mg daily, will cont. Xeljanz on hold with active infection. Assessment & Plan (03/08/2018 2:10 PM FLIGHT OPERATIONS INSPECTOR): RA diagnosed in 1975. On correction steroid treatment, currently taking Merol 4 mg and 2 mg on alternating days and Xeljanz ER 11 mg PO QD. Has severe ulnar deviation of b/e hands and worse in left foot and has a history of many MSK surgeries including 2 spinal surgeries, ne cervical, one lumbar, 3 hip replacements, a knee replacement and b/l shoulder replacements. - Continue Medrol 4 mg/2mg on alternating days - Hold Xeljanz while in hospital and one week following Assessment & Plan (03/07/2018 1:20 PM FLIGHT OPERATIONS INSPECTOR): RA diagnosed in 1975. On correction steroid treatment, currently taking Merol 4 mg and 2 mg on alternating days and Xeljanz ER 11 mg PO QD. Has severe ulnar deviation of b/e hands and worse in left foot and has a history of many MSK surgeries including 2 spinal surgeries, ne cervical, one lumbar, 3 hip replacements, a knee replacement and b/l shoulder replacements. - Continue Medrol 4 mg/2mg on alternating days - Hold Xeljanz while in hospital Assessment & Plan (03/06/2018 2:27 PM FLIGHT OPERATIONS INSPECTOR): RA diagnosed in 1975. On correction steroid treatment, currently taking Merol 4 mg and 2 mg on alternating days and Xeljanz ER 11 mg PO QD. Has severe ulnar deviation of b/e hands and worse in left foot and has a history of many MSK surgeries including 2 spinal surgeries, ne cervical, one lumbar, 3 hip replacements, a knee replacement and b/l shoulder replacements. - Continue Medrol 4 mg/2mg on alternating days - Hold Xeljanz while in hospital Assessment & Plan (03/05/2018 12:46 PM FLIGHT OPERATIONS INSPECTOR): RA diagnosed in 1975. On termite exterminator helper steroid treatment, currently taking Merol 4 mg and 2 mg on alternating days and Xeljanz ER 11 mg PO QD. Has severe ulnar deviation of b/e hands and worse in left foot and has a history of many MSK surgeries including 2 spinal surgeries, ne cervical, one lumbar, 3 hip replacements, a knee replacement and b/l shoulder replacements. - Continue Medrol 4 mg/2mg on alternating days - Hold Xeljanz while in hospital Clostridium difficile infection 03/07/2018 Assessment & Plan (03/07/2018 1:20 PM FLIGHT OPERATIONS INSPECTOR): Prolonged infection from 8702-6614. - C. Diff negative Assessment & Plan (03/06/2018 2:27 PM FLIGHT OPERATIONS INSPECTOR): Prolonged infection from . - check C. Diff toxin Assessment & Plan (03/05/2018 12:53 PM FLIGHT OPERATIONS INSPECTOR): Prolonged infection from . - check C. Diff toxin Encounters Date Type Department Care Team Description 11/26/2024 9:00 AM CDT Procedure visit [facility] [place] [place] Psychiat[facility] [address] [place] [address] [address] [place] [address] Ifeoma Farias PA Severe episode of recurrent major depressive disorder, without psychotic features (HCC) (Primary Dx) 11/20/2024 3:40 PM CDT Office Visit [facility] [place] [place] [facility] [facility] [address], [address] [place] [phone] Dionna Comer NP Confusion (Primary Dx) 11/15/2024 Telephone [facility] [address] [place] [phone] Andres Burroughs RPh 11/13/2024 9:00 AM CDT Procedure visit [facility] [place] [place] Psych[facility] [address] [place] [address] Nova Florez MD Severe episode of recurrent major depressive disorder, without psychotic features (HCC) (Primary Dx) 11/11/2024 8:45 AM CDT Office Visit [facility] [facility] [address] [place] [address] Minda Stoddard MD Severe episode of recurrent major depressive disorder, without psychotic features (HCC) (Primary Dx); Moderate episode of recurrent major depressive disorder (HCC) 10/31/2024 Orders Only [facility] [address] [facility] [facility] [address] [place] [address] Esme Baez MD 10/30/2024 9:00 AM CDT Procedure visit [facility] [place] [place] Psych[facility] [address] [place] [phone] Nova Florez MD Severe episode of recurrent major depressive disorder, without psychotic features (HCC) (Primary Dx) 10/14/2024 1:00 PM CDT Procedure visit [facility] [place] [place] [facility] [address] [place] [address] Devonte Snow MD PhD Severe episode of recurrent major depressive disorder, without psychotic features (HCC) (Primary Dx) 10/09/2024 10:00 AM CDT Office Visit [facility] [place] [place] Rheumatology [address] [facility] [address] [place] [phone] Sabi Horton MD Seropositive rheumatoid arthritis of multiple joints (HCC) (Primary Dx); High risk medications (not anticoagulants) long-term use; Thoracic back pain, unspecified back pain laterality, unspecified chronicity 10/07/2024 1:00 PM CDT Procedure visit [facility] [place] [place] Psych[facility] [address] [place] [address] [address] [place] [address] Devonte Snow MD PhD Severe episode of recurrent major depressive disorder, without psychotic features (HCC) (Primary Dx) 10/07/2024 9:15 AM CDT Office Visit [facility] [address] [facility] [address] [facility] [address] [place] [phone] Minda Stoddard MD Severe episode of recurrent major depressive disorder, without psychotic features (HCC) (Primary Dx) 09/30/2024 1:00 PM CDT Procedure visit [facility] [place] [place] Psychiatry [address] [place] [address] [address] [place] [address] Devonte Snow MD PhD Severe episode of recurrent major depressive disorder, without psychotic features (HCC) (Primary Dx) 2024 1:00 PM CDT Procedure visit [facility] [place] [place] Psychiat[facility] [address] [place] [address] [address] [place] [phone] Devonte Snow MD PhD Severe episode of recurrent major depressive disorder, without psychotic features (HCC) (Primary Dx) 2024 8:30 AM CDT Office Visit [facility] Medicine Epilepsy [facility] 6th Floor [address] [place] [phone] Joselito Guzman MD PhD Temporal lobe epilepsy (HCC) (Primary Dx) 09/12/2024 1:00 PM CDT Procedure visit [facility] [place] [place] Psychiatry [address] [place] [address] [address] [place] [phone] Devonte Snow MD PhD Severe episode of recurrent major depressive disorder, without psychotic features (HCC) (Primary Dx) 09/12/2024 Documentation [facility] [address] [facility] [address] [facility] [address] [place] [phone] Minda Stoddard MD 09/09/2024 1:00 PM CDT Procedure visit [facility] [place] [place] Psychiatry [address] [place] [address] [place] [phone] Devonte Snow MD PhD Severe episode of recurrent major depressive disorder, without psychotic features (HCC) (Primary Dx) 09/06/2024 9:00 AM CDT Office Visit [facility] [address] [facility] [address] [facility] [address] [place] [phone] Minda Stoddard MD Moderate episode of recurrent major depressive disorder (HCC) (Primary Dx) 09/05/2024 1:00 PM CDT Procedure visit [facility] [place] [place] Psychiatry [address] [place] [address] [address] [place] [phone] Devonte Snow MD PhD Severe episode of recurrent major depressive disorder, without psychotic features (HCC) (Primary Dx) 09/02/2024 1:00 PM CDT Procedure visit [facility] [place] [place] Psych[facility] [address] [place] [address] [address] [place] [phone] Devonte Snow MD PhD Severe episode of recurrent major depressive disorder, without psychotic features (HCC) (Primary Dx) from Last 3 Months Immunizations Immunization Administration Dates Next Due COVID-19 mRNA ([employer]) 0.3 m L (30 mcg) vaccine (12 years and up) 03/19/2024 Influenza, Quad, Adjuvantate d, Intramuscular 12/29/2021 Influenza, Quadrivalent, Teena l Culture-based MDCK, Preservative Free, Antibiotic Free, Intramuscular 12/01/2020,12/28/2017 Influenza, Quadrivalent, Spl it, Intramuscular 01/22/2019 Influenza, Trivalent, High D ose, Split, Preservative Free, Intramuscular 03/19/2024,12/01/2015 Influenza, Trivalent, IM (MDV) 12/13/2016 Influenza, Trivalent, Preser vative Free, Intramuscular 11/25/2014,11/26/2013,03/08/2011 Influenza, Unspecified 11/19/2012 Pneumococcal Conjugate PCV 13 11/26/2013 Pneumococcal Conjugate Pcv20 03/08/2022 Pneumococcal Polysaccharide PPV23 12/01/2015, ZOSTER LIVE 03/18/2011 Surgical History Surgery Date Site/Laterality Comments KYPHOPLASTY LUMBAR 10/23/2014 N/A BIOPSY DEEP BONE 10/21/2014 N/A CENTRAL LINE PLACEMENT > 5 YEARS 02/19/2013 N/A CENTRAL LINE PLACEMENT > 5 YEARS 11/05/2012 N/A CENTRAL LINE PLACEMENT > 5 YEARS 07/27/2012 N/A BREAST BIOPSY 01/31/2018 Left BREAST SURGERY BACK SURGERY HYSTERECTOMY SUAD/SBO JOINT REPLACEMENT KNEE SURGERY TOTAL SHOULDER REPLACEMENT Bilateral WRIST SURGERY Bilateral fusion NECK SURGERY fusion Medical History Medical History Date Comments Seizures (HCC) Hyperlipidemia GERD (gastroesophageal reflu x disease) Depression Temporal lobe epilepsy (HCC) Nephrolithiasis Prediabetes Osteopenia Fever Sepsis (HCC) Rheumatoid arthritis (HCC) Migraine C. difficile colitis multiple ep isodes in [id number] with several hospitalizations and ICU stays. Hx positive C. difficile assays (with sx) - - July 2012, Oct 2012, February 2013, April 2013, June 2013, August 2013, May 2014, June 2014, Feb 2018, Apr 2018 Ovarian cancer (HCC) PAD (peripheral artery disease) Covid-19 01/04/2021 vaccinated; brent k-through infection with mild sx x 2 days Cellulitis of right leg 04/01/2019 Family History Medical History Relation Name Comments Heart disease Father Cancer Mother Relation Name Status Comments Father Mother Social History Tobacco Use Types Packs/Day Years Used Date Smoking Tobacco: Never Smokeless Tobacco: Never Tobacco Cessation:Counseling Given: Not Answered Alcohol Use Standard Drinks/Week Comments Not Currently 0 (1 standard drink = 0.6 oz pur e alcohol) rarely [facility] Utilities Answer Date Recorded In the past 12 months has th e electric, gas, oil, or water company threatened to shut off services in your home? No 07/14/2024 Social Connection and Isolation Panel Answer Date Recorded In a typical week, how many times do you talk on the phone with family, friends, or neighbors? Three times a week 07/14/2024 How often do you get togethe r with friends or relatives? Three times a week 07/14/2024 How often do you attend chur ch or anabaptism services? Never 07/14/2024 Do you belong to any clubs o r organizations such as confucianist groups, unions, fraternal or athletic groups, or school groups? No 07/14/2024 How often do you attend meet ings of the clubs or organizations you belong to? Never 07/14/2024 Are you , , di vorced, , never , or living with a partner? Never 07/14/2024 Overall Financial Resource Strain (CARDIA) Answe r Date Recorded How hard is it for you to pa y for the very basics like food, housing, medical care, and heating? Not hard at all 07/14/2024 PHQ-2 Answer Date Recorded PHQ-2 Total Score (If total score is 3 or more points, staff should administer the PHQ-9) 6 03/08/2022 [facility] - Occupational Stress Questionnaire Answer Date Recorded Do you feel stress - tense, restless, nervous, or anxious, or unable to sleep at night because your mind is troubled all the time - these days? Rather much 07/14/2024 Hunger Vital Sign Answer Date Recorded Within the past 12 months, y ou worried that your food would run out before you got the money to buy more. Never true 07/15/19 25 Within the past 12 months, t he food you bought just didn't last and you didn't have money to get more. Never true 07/14/2024 PRAPARE - Transportation Answer Date Re corded In the past 12 months, has l ack of transportation kept you from medical appointments or from getting medications? No 06/27 In the past 12 months, has l ack of transportation kept you from meetings, work, or from getting things needed for daily living? No 07/14/2024 Housing Stability Vital Sign Answer Aaron e Recorded In the last 12 months, was t here a time when you were not able to pay the mortgage or rent on time? No 07/14/2024 In the past 12 months, how m any times have you moved where you were living? 1 07/14/2024 At any time in the past [address] [facility], were you homeless or living in a half-way (including now)? No 07/14/2024 AUDIT-C Answer Date Recorded Q1: How often do you have a drink containing alcohol? Never 11/20/2024 Q2: How many drinks containi ng alcohol do you have on a typical day when you are drinking? Patient does not drink Q3: How often do you have si x or more drinks on one occasion? Never 11/20/2024 Personal Safety Answer Date Recorded Have you ever been in or are you currently in a harmful physical or emotional relationship or is someone making you feel afraid or unsafe? Denies 07/12/2024 Comments No Sex and Gender Information Value Date Recorded Sex Assigned at Not on file Legal Sex Female 11:34 PM FLIGHT OPERATIONS INSPECTOR Gender Identity Not on file Sexual Orientation Straight 03/03/2021 11 :19 AM FLIGHT OPERATIONS INSPECTOR Obstetrics History Last Filed Vital Signs Vital Sign Reading Time Taken Comments Blood Pressure 125/80 11/20/2024 3:54 PM CDT Pulse 75 11/20/2024 3:54 PM CDT Temperature 36.4 C (97.5 F) 11/20/2024 3:54 PM CDT Respiratory Rate 20 07/26/2024 12:3 8 PM CDT Oxygen Saturation 98% 11/20/2024 3:54 PM CDT Inhaled Oxygen Concentration - - Weight 61.1 kg (134 lb 12.8 oz) 11/20/2024 3:54 PM CDT Height 162.6 cm (5' 4.02) 11/20/2024 3:54 PM CD T Body Mass Index 23.13 11/20/2024 3:54 PM CDT Plan of Treatment Health Maintenance Due Date Last Done Comments Hepatitis C Screening 1955 DTaP/Tdap/Td Vaccine (1 - Tdap) 09/22/1966 Hepatitis B Screening 09/22/1973 Zoster Vaccine (1 of 2) 05/13/2011 03/18/2011 Well Visit 65+ 09/22/2020 Depression Screening 03/08/2023 03/08/2022 Breast Cancer Screening-Mammogram 06/01/2024 06/02/2023, 11/30/2022, 12/26/2017, Additional history exists Covid-19 Vaccine (5 - Mixed Product risk season) 2024 03/19/2024, 02/10/2021, 06/01/2020, Additional history exists Influenza Vaccine (#1) 2024 , 12/29/2021, 12/01/2020, Additional history exists Osteoporosis Screening-Bone Density Scan 05/11/2025 05/12/2023, 12/14/2020, 10/18/2017, Additional history exists Fall Risk Assessment 07/26/2025 07/26/2024, 04/25/19 24 Colon Cancer Screening-Colonoscopy 01/26/2031 01/26/2021 Colon Cancer Screening-CT Colonography Discontinued 01/26/2021 Colon Cancer Screening-DNA Stool Discontinued 01/27/20 21 Colon Cancer Screening-FIT Discontinued 01/26/2021 Colon Cancer Screening-Sigmoidoscopy Discontinued 01/26/2021 Pneumococcal vaccine 65+ Completed 023, 12/01/2015, 11/26/2013, Additional history exists Medical Devices Implanted Type Area Sql Ssis Developer Device Identifier Shelf Expiration Date Model / Serial / Lot Total Joint Right: Knee Total Joint Bilateral: Shoulder Total Joint Bilateral: Hip Screws Neck Procedures Procedure Name Priority Date/Time Associated Diagnosis Comments SCREENING MAMMOGRAM BILATERAL W ANJEL Schedule Routine, Read Routine (OP Routine) 06/02/2023 9:11 AM CDT Screening mammogram, encounter for DEXA AXIAL SKELETON BONE DENSITY 1 OR MORE SITES Schedule Routine, Read Routine (OP Routine) 05/12/2023 9:50 AM CDT Steroid-induced osteoporosis COLONOSCOPY 01/26/2021 1:55 PM FLIGHT OPERATIONS INSPECTOR from Last 3 Months or Most Recently Relevant to Health Maintenance Results * Screening Mammogram Bilateral W Anjel (06/02/2023 9:11 AM CDT) Anatomical Region Laterality Modality Breast Bilateral Mammography Impressions 06/02/2023 9:24 AM CDT BI-RADS ATLAS category (overall): 2 - Benign There is no mammographic evidence of malignancy. A 1 year screening mammogram is recommended. The patient has been or will be contacted. We recommend annual screening mammography for women at average risk of breast cancer beginning at age 40, based on guidelines of the [place] [employer] (ACR Practice Parameter for the Performance of Screening and Diagnostic Mammography) and [place] [employer]. For women with and elevated risk of breast cancer, please refer to the ACR Practice Parameter for specific screening recommendations. The patient will be entered into a reminder system with a target due date of 1 year for her next screening exam. Narrative 06/02/2023 9:24 AM CDT Screening Mammogram Bilateral W Anjel: 06/02/23 The study was acquired using full field digital technology and interpreted from soft copy. 2D digital mammographic views, as well as 3D digital tomosynthesis were performed in the CC and MLO projections. CLINICAL: Screening mammogram, encounter for. Medical history includes ovarian cancer. No known family history of breast cancer. COMPARISONS: 01/08/2018 Diagnostic Mammogram Left W Anjel 12/26/2017 Screening Mammogram Bilateral W Anjel 12/10/2016 Screening Mammogram BREAST TISSUE: The breasts have scattered areas of fibroglandular density. FINDINGS: A biopsy marker clip is unchanged in the left breast. There are unchanged benign microcalcifications in both breasts. There is no new suspicious finding in either breast on mammogram. us Self Screening Mammogram IMG MAMMO PROCEDURES Fi nal Result * Dexa Axial Skeleton Bone Density 1 or 2 Site (05/12/2023 9:50 AM CDT) Anatomical Region Laterality Modality Body N/A Radiographic Oksana ging Narrative 05/13/2023 2:37 PM CDT Patient Name: Babs Parrish Date of : 1955 Date of scan: 05/12/2023 Bone mineral density was performed on a HoloSeeVolution Discovery Densitometer. Based on machine cross-calibration and precision studies the least significant changes of this densitometer is 0.024 g/cm2 at the spine, 0.020 g/cm2 at the total proximal femur, and 0.014g/cm2 at the forearm. HISTORY: This is a 67 y.o. postmenopausal female with a history of osteoporosis and rheumatoid arthritis. She reports that she has never smoked. She has never used smokeless tobacco. Currently on treatment with vitamin D and glucocorticoids and current complaint of arm pain, back pain, neck pain, and leg pain. INDICATIONS: Menopause status, treatment monitoring, history of prior vertebral fracture, currently on 4 mg of glucocorticoids for the past 45 year(s), and history of osteoporosis. FINDINGS: BONE MINERAL DENSITY OF THE LUMBAR SPINE Bone Mineral Density (BMD) of the lumbar spine was measured from L1 and L4 and the average density was calculated to be 1.016 gm/cm2. This corresponds to a T-score (standard deviations from the mean of young adults) of -0.2. When compared to the previous study of 12/14/2020 there has been a 0.026 gm/cm (2.6%) increase in bone density that is considered significant. SUMMARY: Bone mineral density is near the young adult normal mean with no increased risk for fracture. There has been a significant increase in bone density since previous measurement. L2 and L3 excluded from bone mineral density analysis of the lumbar spine because of the presence of vertebroplasty. ADDITIONAL COMMENTS: Postmenopausal Women and Men Over 50: Diagnostic criteria: Osteoporosis: BMD at or below -2.5 T-score; Osteopenia (low bone mass): BMD between -1.0 and -2.5 T-score. If the patient has a history of a fragility fracture, a fracture that occurred with trauma equivalent to a fall from a standing position or less, then the diagnosis is osteoporosis regardless of bone density. The history and data sections of the bone mineral density scan were prepared by Nikki Hanson) DARIEN who is accredited by the International Society of Clinical Densitometry. The overall patient assessment and scan interpretation were performed by Cheryl Fontenot MD who is certified by the International Society of Clinical Densitometry. [id number] us Sabi Horton MD IMG DXA PROCEDURES Final Res ult * COLONOSCOPY (01/26/2021 1:55 PM FLIGHT OPERATIONS INSPECTOR) Anatomical Region Laterality Modality Other Narrative Procedure Note Dionna Santacruz MD - 01/26/2021 1:55 PM CST ENDOSCOPY LAB Patient Name: Babs Parrish Procedure Date: 01/26/2021 1:55 PM Date of : 1955 Admit Type: Outpatient Age: 65 Gender: Female Attending MD: Dionna Santacruz M.D. Room: [facility] ENDOSCOPY ROOM 03 Note Status: Finalized Procedure: Colonoscopy Indications: High risk colon cancer surveillance: Personalhistory of colonic polyps, Last colonoscopy: 2012,Incidental change in bowel habits noted with loose stools Providers: Dionna Santacruz M.D. Referring MD: Esme Baez M.D. Medicines: Monitored Anesthesia Care Complications: No immediate complications. Estimated Blood Loss: Estimated blood loss was minimal. Procedure: Pre-Anesthesia Assessment: - Prior to the procedure, a History and Physicalwas performed, and patient medications, allergies and sensitivities were reviewed. The patient'stolerance of previous anesthesia was reviewed. The benefits, risks and alternatives of theprocedure and sedation were discussed and informed consentwas obtained. All questions were answered. Please referto the signed informed consent document in the medical record. The scope was passed under direct vision.The [id number] was introduced through the anusand advanced to the cecum, identified by appendiceal orifice and ileocecal valve. The colonoscopy was performed without difficulty. The patient tolerated the procedure well. Abdominal pressure wasutilized. The quality of the bowel preparation was evaluated using the BBPS ([place] Bowel Preparation Scale)with scores of: Right Colon = 3, Transverse Colon = 3and Left Colon = 3 (entire mucosa seen well with no residual staining, small fragments of stool oropaque liquid). The total BBPS score equals 9. The bowel preparation used was SUPREP via split doseinstruction. Findings: The perianal and digital rectal examinations were normal. Multiple diverticula were found in the sigmoid colon, descendingcolon, transverse colon and ascending colon. Normal mucosa was found in the entire colon. Biopsies for histologywere taken with a cold forceps from the right colon for evaluation of microscopic colitis. Hemorrhoids were found during retroflexion. The exam was otherwise without abnormality on direct and retroflexion views. Impression: - Diverticulosis in the sigmoid colon, in the descending colon, in the transverse colon and inthe ascending colon. - Normal mucosa in the entire examined colon.Biopsied. - Hemorrhoids. - The examination was otherwise normal on directand retroflexion views. Recommendation: - The patient will be observed post-procedure,until all discharge criteria are met. - Await pathology results. - Repeat colonoscopy in 7-10 years forsurveillance. - Biopsy results are typically available within 7-10 days and you will be contacted with the results. If you have not recieved your results within this timeframe, please call [phone] regarding your results. - Contact Information: During normal business hours - Please call theNurse Coordinator: [phone] After hours, evening, nights, weekends and holidays- Please call the hospital straddle bug operator at and ask for the GI fellow environmental lawyer. - . Attending Participation: I personally performed the entire procedure. Electronically Signed By: Dionna Santacruz M.D. Dionna Santacruz M.D. 01/26/2021 2:26:29 PM Number of Addenda: 0 Note Initiated On: 01/26/2021 1:55 PM Dionna Santacruz MD ENDOSCOPY PROCEDURES Fin al Result from Last 3 Months or Most Recently Relevant to Health Maintenance Insurance UHC MEDICARE ADVANTAGE MEDICARE [facility] PPO MEDICINE [facility] HMO/PPO Address: [address] [place] [address] UHC MEDICARE ADVANTAGE [facility]ALTH [facility] Address: [address] [address] [place] [address] [facility] MEDICARE AET MEDICARE Advance Directives For more information, please contact: [phone] Documents on File Type Date Recorded Patient Hand Stamper Expl anation ADVANCE DIRECTIVE 06/11/2021 12:32 PM Jalil r of Community Planner-Medical Advance Directives and Living Will 03/31/2021 10:13 AM Advance Directives and Living Will 08/26/2020 11:05 AM ADVANCE DIRECTIVE 06/17/2020 11:16 AM * LIMITED - No CPR (Latest Code Status on File) Date Activated Date Inactivated Comments 07/13/2024 6:11 PM 07/26/2024 7:57 PM * Full Code Date Activated Date Inactivated Comments 07/13/2024 1:28 PM 07/13/2024 6:11 PM * Full Code Date Activated Date Inactivated Comments 01/26/2021 12:40 PM 01/26/2021 6:52 PM * Full Code Date Activated Date Inactivated Comments 04/05/2019 5:49 PM 04/10/2019 7:22 PM * Full Code Date Activated Date Inactivated Comments 04/01/2019 8:32 PM 04/05/2019 5:49 PM Care Teams Clerical Associate Relationship Specialty Start Date End Date Esme Baez MD PCP - General Internal Medicine 03/13/18 Esme Baez MD 03/05/18 Jaun Roque DPM Consulting Physician Orthotics 04/09/19 No, Physician 04/09/19 Waqar Heller DPM [id number] [place] [address] Consulting Physician Orthopedic Surgery 06/17/20 Minda Stoddard MD [address] [id number] [place] [address] Resident Psychiatry 09/06/24 08/26/25
--- OUTSIDE RECORDS SUMMARY | 2024-12-02 16:40 | XMS_ITS | Encounter Summary ---
Author Organization [facility] Address [address] [place] [address] Phone Care Team Providers Care Glacing Machine Tender Name Role Phone Esme Jaffe MD Unavailable [phone] Esme Jaffe MD Primary Care Provider + Jaun Roque DPM Unavailable [phone] No, Physician Unavailable Waqar Heller DPM Unavailable Daina Latif MD Unavailable [phone] Minda Stoddard MD Unavailable Encounter Details Date Type Department Care Team (Latest Contact Info) Description 10/30/2019 Orders Only [facility] Scanning, Provider Social History Tobacco [...] and Family Once a week 04/02/2019 Attends Religion Services Never 04/02 Active Member of Clubs or Organizations No 04/02/2019 Attends Club or Organization Meetings Never 04/02/2019 Marital Status Never 04/02/2019 Overall Financial Resource Strain (CARDIA) Answe r Date Recorded Difficulty of Paying Living Expenses Not very bedolla rd 04/02/2019 PRAPARE - Transportation Answer Date Re corded Lack of Transportation (Medical) No 04/02/2019 Lack of Transportation (Non-Medical) No 04/02/2019 Comments No Sex and Gender Information Value Date Recorded Sex Assigned at Not on file Legal Sex Female 11:34 PM APPLICATION DEVELOPMENT TEAM LEAD Gender Identity Not on file Sexual Orientation Straight 03/03/2021 11 :19 AM APPLICATION DEVELOPMENT TEAM LEAD documented as of this encounter Plan of Treatment Not on file documented as of this encounter Procedures Procedure Name Priority Date/Time Associated Diagnosis Comments SCAN - LABS 10/30/2019 documented in this encounter Results * SCAN - LABS (10/30/2019) us Provider Scanning Final Result documented in this encounter Visit Diagnoses Not on filedocumented in this encounter Additional Health Concerns Infection Onset Date Last Indicated Resolved Time COVID: Suspected 02/28/2021 03/06/2021 03/06/2021 2:08 PM APPLICATION DEVELOPMENT TEAM LEAD documented as of this encounter Care Teams Glacing Machine Tender Relationship Specialty Start Date End Date Esme Jaffe MD PCP - General Internal Medicine 03/13/18 Esme Jaffe MD 03/05/18 Jaun Roque DPM Consulting Physician Orthotics 04/09/19 No, Physician 04/09/19 Waqar Heller DPM [id number] [place] [address] Consulting Physician Orthopedic Surgery 06/17/20 Daina Latif MD [address] [id number] [place] [address] Resident Psychiatry 6/2/25 6/27/25 Minda Stoddard MD [address] [id number] [place] [address] Resident Psychiatry 09/06/24 08/26/25 documented as of this encounter
--- OUTSIDE RECORDS SUMMARY | 2024-12-02 16:40 | XMS_ITS | Encounter Summary ---
Author Organization [facility] Address [address] [place] [address] Phone Care Team Providers Care Child Protective Investigator Name Role Phone Esme Jaffe MD Unavailable [phone] Esme Jaffe MD Primary Care Provider + Jaun Roque DPM Unavailable [phone] No, Physician Unavailable Waqar Heller DPM Unavailable Daina Latif MD Unavailable [phone] Minda Stoddard MD Unavailable Encounter Details Date Type Department Care Team (Latest Contact Info) Description 11/30/2022 Orders Only [facility] Scanning, Provider Social History Tobacco Use Types [...] and Family Once a week 04/02/2019 Attends Alevism Services Never 04/02 Active Member of Clubs [...] on file Legal Sex Female 11:34 PM CHICKEN HATCHERY HELPER Gender Identity Not on file Sexual Orientation Straight 03/03/2021 11 :19 AM CHICKEN HATCHERY HELPER documented as of this encounter Plan of Treatment Not on file documented as of this encounter Procedures Procedure Name Priority Date/Time Associated Diagnosis Comments SCAN - RADIOLOGY/IMAGING 11/30/2022 documented in this encounter Results * SCAN - RADIOLOGY/IMAGING (11/30/2022) Anatomical Region Laterality Modality Other us Provider Scanning Final Result documented in this encounter Visit Diagnoses Not on filedocumented in this encounter Care Teams Child Protective Investigator Relationship Specialty Start Date End Date Esme Jaffe MD PCP - General Internal Medicine 03/13/18 Esme Jaffe MD 03/05/18 Jaun Roque DPM Consulting Physician Orthotics 04/09/19 No, Physician 04/09/19 Waqar Heller DPM [address] [place] [address] Consulting Physician Orthopedic Surgery 06/17/20 Daina Latif MD [address] [facility] [id number] [place] [address] Resident Psychiatry 07/29/24 08/23/24 Minda Stoddard MD [address] [facility] [phone] [place] [address] Resident Psychiatry 09/06/24 08/26/25 documented as of this encounter
[2024-12-02 17:07] VITALS: BP 150/73; PULSE 82; RESP 18; TEMP 36.3; O2SAT 99
--- NOTE | 2024-12-02 17:11 | ED_ITS ---
HPI - URI/Sore Throat General Chief Complaint: Upper Respiratory Infection <Salvador Cote APRN - Last Filed: 12/02/24 17:12> Stated Complaint: cough, congestion <Salvador Cote APRN - Last Filed: 12/02/24 17:12> Time Seen by Provider: 12/02/24 20:34 <Salvador Cote APRN - Last Filed: 12/02/24 17:12> Focused HPI: 69 presents breath cough, congestion, PND, rhinorrhea, sneezing for 4 weeks. Patient states she has been seen onset 2 weeks ago was diagnosed with viral upper respiratory infection. Patient states that she has been intermittently taking fgqk-kop-torrzmc medications with no improvement of her symptoms. Patient of denies fevers, shortness of breath difficulty breathing. GENERAL: Well-appearing, well-nourished, and in no acute distress. HEAD: Normocephalic, atraumatic. CHEST: Clear to auscultation. No respiratory distress. HEART: Regular rate and rhythm. NEURO: Alert and oriented x3. Patient screened in triage and initial orders placed. Additional care and disposition to be based upon diagnostic testing and treatment. <Salvador Cote APRN - Last Filed: 12/02/24 17:12> Focused HPI: 69 year old female presents with shortness of breath, cough, congestion, PND, rhinorrhea, sneezing for 4 weeks. Patient states she has been seen onset 2 weeks ago was diagnosed with viral upper respiratory infection. Patient states that she has been intermittently taking fqqv-kfc-hasunag medications with no improvement of her symptoms. Patient denies fevers GENERAL: Well-appearing, well-nourished, and in no acute distress. HEAD: Normocephalic, atraumatic. CHEST: Clear to auscultation. No respiratory distress. HEART: Regular rate and rhythm. NEURO: Alert and oriented x3. Patient screened in triage and initial orders placed. Additional care and disposition to be based upon diagnostic testing and treatment. <Jennifer Tinoco PA-C - Last Filed: 12/02/24 23:48> Related Data Home Medications: Home Medications ?Medication ?Instructions ?Recorded ?Confirmed ?Last Taken ?Type Centrum Silver Women 1 tablet PO DAILY 03/30/19 0 05/17/23 Unknown History atorvastatin 80 mg tablet 80 mg PO DAILY 03/30/1904/28 Unknown History citalopram 10 mg tablet 20 mg PO DAILY 03/30/1904/28 Unknown History tofacitinib 11 mg tablet,extended 11 mg PO DAILY 03/3005/17/23 Unknown History release 24 hr (Xeljanz XR) brivaracetam 50 mg tablet 150 mg PO QAM 02/16/2105/16 Unknown History (Briviact) brivaracetam 100 mg tablet 100 mg PO HS 01/04/2305/16 Unknown History (Briviact) <Salvador Cote, DAMON - Last Filed: 12/02/24 17:12> Allergies/Adverse Reactions: Allergies Allergy/AdvReac Type Severity Reaction Status Date / Time gold Au 198 Allergy Mild Unknown Verified 12/02/24 20:03 Quinolones Allergy Mild Unknown Verified 12/02/24 20:03 ciprofloxacin (From Cipro) Allergy Unknown Other Verified 12/02/24 20:03 hydroxychloroquine Allergy Unknown Other Verified 12/02/24 20:03 sulfasalazine Allergy Unknown Unknown Verified 12/02/24 20:03 leflunomide AdvReac Unknown CONFUSION, Verified 12/02/24 20:03 GI UPSET Sulfa (Sulfonamide AdvReac Unknown NAUSEA Verified 12/02/24 20:03 Antibiotics) <Salvador Cote, LEGAL ADVISER - Last Filed: 12/02/24 17:12> Review of Systems 2 Review of Systems: All systems reviewed & are unremarkable except as noted in HPI and below <Jennifer Tinoco PA-C - Last Filed: 12/02/24 23:48> [facility] Past Medical History Medical History: Medical History (Updated 12/02/24 @ 23:43 by Jennifer Tinoco PA-C) Anemia Depression History of osteoporosis Rheumatoid arthritis UTI (urinary tract infection) Kidney stones Ovarian cancer GERD (gastroesophageal reflux disease) Diverticulitis Bronchitis HTN (hypertension) HLD (hyperlipidemia) Migraine Seizures <Salvador Cote, DAMON - Last Filed: 12/02/24 17:12> Surgical History Surgical History: Surgical History Hx of bilateral hip replacements H/O wrist surgery H/O: hysterectomy H/O breast augmentation <Salvador Cote APRN - Last Filed: 12/02/24 17:12> Family History Family History: Family History Mother Diabetes mellitus Father Heart disease <Salvador Cote APRN - Last Filed: 12/02/24 17:12> Social History Social History: Social History Smoking status: Never smoker Alcohol intake: never Substance use: never Do You Feel Safe in your Home?: Yes Lack of Transportation: No Lack of Food: Never True Current Housing: I Have Housing Concerned About Future Housing: No Difficulty Paying Gas/Electric Bills: No Difficulty Paying for Meds: No Currently Unemployed: No Education: Bachelor's Degree Difficulty w/ Childcare or Family Care: No Spiritual care concerns: No <Salvador Cote APRN - Last Filed: 12/02/24 17:12> Exam 2 Narrative: GENERAL: Well-appearing, well-nourished, and in no acute distress. HEAD: Normocephalic, atraumatic. EYES: EOMI. ENT: Nares clear, no rhinorrhea or epistaxis. Mucous membranes moist. Oropharynx without tonsillar hypertrophy exudate or other lesions. Bilateral TMs pearly ruiz non-bulging NECK: Supple. No adenopathy or masses. CHEST: Clear to auscultation. No respiratory distress. No wheezes rales or rhonchi HEART: Regular rate and rhythm. No murmur heard. Normal peripheral pulses. EXTREMITIES: Normal range of motion. No edema. SKIN: Warm, dry, no rash. NEURO: No focal deficits. Alert and oriented x3. PSYCH: Normal mood and affect <Jennifer Tinoco PA-C - Last Filed: 12/02/24 23:48> Course Course Emergency Course: patient updated on her workup and agrees with plan of care <Jennifer Tinoco PA-C - Last Filed: 12/02/24 23:48> Vital Signs Vital signs: Vital Signs Temperature 97.3 F L 12/02/24 17:07 Pulse Rate 82 12/02/24 17:07 Respiratory Rate 18 12/02/24 17:07 Blood Pressure 150/73 H 12/02/24 17:07 Pulse Oximetry 99 12/02/24 17:07 Oxygen Delivery Room Air 12/02/24 17:07 Temperature 97.6 F 12/02/24 20:01 Pulse Rate 80 12/02/24 20:01 Respiratory Rate 16 12/02/24 20:01 Blood Pressure 142/73 H 12/02/24 20:01 Pulse Oximetry 99 12/02/24 20:11 Oxygen Delivery Room Air 12/02/24 20:11 <Salvador Cote, LEGAL ADVISER - Last Filed: 12/02/24 17:12> Vital Signs Temperature 97.3 F L 12/02/24 17:07 Pulse Rate 82 12/02/24 17:07 Respiratory Rate 18 12/02/24 17:07 Blood Pressure 150/73 H 12/02/24 17:07 Pulse Oximetry 99 12/02/24 17:07 Oxygen Delivery Room Air 12/02/24 17:07 Temperature 97.6 F 12/02/24 20:01 Pulse Rate 80 12/02/24 20:01 Respiratory Rate 16 12/02/24 20:01 Blood Pressure 142/73 H 12/02/24 20:01 Pulse Oximetry 99 12/02/24 20:11 Oxygen Delivery Room Air 12/02/24 20:11 <Jennifer Tinoco PA-C - Last Filed: 12/02/24 23:48> MDM - URI/Sore Throat MDM Narrative Medical decision making narrative: Patient presents to the emergency department for cough, congestion, shortness of breath. She is afebrile and nontoxic appearing. Her vitals are stable. Cbc without leukocytosis. Metabolic panel without concerning findings. BNP is not concerningly elevated. Influenza, RSV and COVID screens are negative. D-dimer elevated, CTA of the chest obtained. No PE. Possible small airway disease. Patient instructed on antihistamines, Flonase. Will be given prescription for albuterol inhaler. She is to follow up with her primary provider. She was given warnings to return to the ER <Jennifer Tinoco PA-C - Last Filed: 12/02/24 23:48> Differential Diagnosis Differential diagnosis: Likely upper respiratory infection, sinusitis, viral infection, bronchitis and influenza <Jennifer Tinoco PA-C - Last Filed: 12/02/24 23:48> Lab Data Attestation: I reviewed the patient's lab results. <Jennifer Tinoco PA-C - Last Filed: 12/02/24 23:48> Result diagrams: 12/02/24 21:26 12/02/24 21:26 <Salvador Cote APRN - Last Filed: 12/02/24 17:12> Labs: Lab Results 12/02/24 12/02/24 Range/Units 18:08 21:26 WBC 7.7 (4.5-10.0) K/mm3 RBC 4.61 (4.2-5.4) M/mm3 Hgb 13.9 (12.0-15.0) g/dL Hct 42.0 (37.0-47.0) % MCV 91.1 (80-100) fl MCH 30.2 (26-34) pg MCHC 33.1 (32-36) g/dl RDW 13.5 (11.5-14.5) % Plt Count 429 H (150-375) k/mm3 MPV 8.6 (7.4-10.4) fl Immature Gran % (Auto) 0.5 (0-0.5) % Neut % (Auto) 69.1 (45.5-73.1) % Lymph % (Auto) 21.5 (18.3-44.2) % [place] % (Auto) 7.1 (2.6-8.5) % Eos % (Auto) 1.2 (0-4.4) % Baso % (Auto) 0.6 (0.2-1.2) % Lymph # (Auto) 1.66 (0.9-3.2) K/mm3 [place] # (Auto) 0.6 (0.1-0.6) K/mm3 Eos # (Auto) 0.1 (0-0.3) K/mm3 Baso # (Auto) 0.1 (0.0-0.1) K/mm3 Abs Immat Gran (auto) 0.04 H (0.00-0.031) K/mm3 Absolute Neuts (auto) 5.3 (1.3-6.7) K/mm3 Absolute Nucleated RBC 0.000 (0.0-0.012) K/mm3 Nucleated RBC % 0.0 (0.0-0.2) % PT 13.2 (11.1-14.7) Seconds INR 1.0 APTT 27.5 (22.3-36.8) Seconds D-Dimer 13.51 H (<0.48) ug/mL Sodium 138 (137-145) mmol/L Potassium 4.6 (3.4-5.0) mmol/L Chloride 104 (98-107) mmol/L Carbon Dioxide 22 (22-30) mmol/L Anion Gap 12 (4-12) mmol/L BUN 21 H (7-17) mg/dL Creatinine 0.92 (0.7-1.0) mg/dL Estim Creat Clear Calc 44 ml/min Estimated GFR > 60 (59 - ) Glucose 89 (65-110) mg/dL Calcium 9.8 (8.4-10.2) mg/dL Total Bilirubin 0.6 (0.2-1.3) mg/dL AST 39 H (14-36) U/L ALT 28 (6-35) U/L Alkaline Phosphatase 84 (38-126) U/L NT-Pro-B Natriuret Pep 131 H (19.9-100) pg/mL Total Protein 8.8 H (6.3-8.2) g/dL Albumin 5.0 (3.5-5.1) g/dL Influenza A (RT-PCR) Negative (Negative) Influenza B (RT-PCR) Negative (Negative) RSV (RT-PCR) Negative (Negative) SARS-CoV-2 RNA (RT-PCR) Negative (Negative) <Salvador Cote, LEGAL ADVISER - Last Filed: 12/02/24 17:12> Lab Results 12/02/24 12/02/24 Range/Units 18:08 21:26 WBC 7.7 (4.5-10.0) K/mm3 RBC 4.61 (4.2-5.4) M/mm3 Hgb 13.9 (12.0-15.0) g/dL Hct 42.0 (37.0-47.0) % MCV 91.1 (80-100) fl MCH 30.2 (26-34) pg MCHC 33.1 (32-36) g/dl RDW 13.5 (11.5-14.5) % Plt Count 429 H (150-375) k/mm3 MPV 8.6 (7.4-10.4) fl Immature Gran % (Auto) 0.5 (0-0.5) % Neut % (Auto) 69.1 (45.5-73.1) % Lymph % (Auto) 21.5 (18.3-44.2) % [place] % (Auto) 7.1 (2.6-8.5) % Eos % (Auto) 1.2 (0-4.4) % Baso % (Auto) 0.6 (0.2-1.2) % Lymph # (Auto) 1.66 (0.9-3.2) K/mm3 [place] # (Auto) 0.6 (0.1-0.6) K/mm3 Eos # (Auto) 0.1 (0-0.3) K/mm3 Baso # (Auto) 0.1 (0.0-0.1) K/mm3 Abs Immat Gran (auto) 0.04 H (0.00-0.031) K/mm3 Absolute Neuts (auto) 5.3 (1.3-6.7) K/mm3 Absolute Nucleated RBC 0.000 (0.0-0.012) K/mm3 Nucleated RBC % 0.0 (0.0-0.2) % PT 13.2 (11.1-14.7) Seconds INR 1.0 APTT 27.5 (22.3-36.8) Seconds D-Dimer 13.51 H (<0.48) ug/mL Sodium 138 (137-145) mmol/L Potassium 4.6 (3.4-5.0) mmol/L Chloride 104 (98-107) mmol/L Carbon Dioxide 22 (22-30) mmol/L Anion Gap 12 (4-12) mmol/L BUN 21 H (7-17) mg/dL Creatinine 0.92 (0.7-1.0) mg/dL Estim Creat Clear Calc 44 ml/min Estimated GFR > 60 (59 - ) Glucose 89 (65-110) mg/dL Calcium 9.8 (8.4-10.2) mg/dL Total Bilirubin 0.6 (0.2-1.3) mg/dL AST 39 H (14-36) U/L ALT 28 (6-35) U/L Alkaline Phosphatase 84 (38-126) U/L NT-Pro-B Natriuret Pep 131 H (19.9-100) pg/mL Total Protein 8.8 H (6.3-8.2) g/dL Albumin 5.0 (3.5-5.1) g/dL Influenza A (RT-PCR) Negative (Negative) Influenza B (RT-PCR) Negative (Negative) RSV (RT-PCR) Negative (Negative) SARS-CoV-2 RNA (RT-PCR) Negative (Negative) <Jennifer Tinoco PA-C - Last Filed: 12/02/24 23:48> Imaging Data Radiologist's impression: CTA chest PE: No pulmonary embolism seen. Possible small airway disease. No other acute finding <Jennifer Tinoco PA-C - Last Filed: 12/02/24 23:48> Critical Care Time Critical Care Time Critical Care Time: No <Jennifer Tinoco PA-C - Last Filed: 12/02/24 23:48> Discharge Plan Discharge Clinical Impression: Bronchitis <Salvador Cote APRN - Last Filed: 12/02/24 17:12> Patient Disposition: Home <Salvador Cote APRN - Last Filed: 12/02/24 17:12> Condition: Stable <DAMON Fitzgerald Last Filed: 12/02/24 17:12> Instructions: Acute Bronchitis (ED) <DAMON Fitzgerald Last Filed: 12/02/24 17:12> Additional Instructions: Return to the emergency department for worsening symptoms, or any other concerns Remain well-hydrated, get plenty of rest. Flonase for nasal congestion. Zyrtec for runny nose. Albuterol 2 puffs every 4-6 hours as needed for shortness of breath Follow up with your primary care doctor <DAMON Fitzgerald Last Filed: 12/02/24 17:12> Patient Language: Bulgarian <Salvador Cote APRN - Last Filed: 12/02/24 17:12> Prescriptions: New albuterol sulfate [Ventolin HFA] 90 mcg/actuation HFA aerosol inhaler 2 puff inhalation QID PRN (Reason: shortness of breath or wheezing) Qty: 8.5 0RF No Action atorvastatin 80 mg tablet 80 mg PO DAILY citalopram 10 mg tablet 20 mg PO DAILY Xeljanz XR 11 mg tablet extended release 24 hr 11 mg PO DAILY Centrum Silver Women 1 tablet PO DAILY Briviact 50 mg Tablet 150 mg PO QAM sucralfate 100 mg/mL Suspension 1,000 mg PO ACHS Qty: 100 0RF pantoprazole [Protonix] 20 mg tablet,delayed release (DR/EC) 20 mg PO HS Qty: 30 0RF Briviact 100 mg tablet 100 mg PO HS omeprazole 40 mg capsule,delayed release(DR/EC) 40 mg PO DAILY Qty: 30 0RF lamotrigine [Lamictal] 100 mg Tablet 300 mg PO QAM Qty: 30 0RF lamotrigine [Lamictal] 100 mg Tablet 200 mg PO QHS Qty: 30 0RF <Salvador Cote APRN - Last Filed: 12/02/24 17:12> Follow-up/Referrals: Mukund Jaffe [Primary Care Provider, Nursing] <Salvador Cote APRN - Last Filed: 12/02/24 17:12>
[2024-12-02 18:53] LABS: Influenza A QL RT-PCR Negative (Negative); Influenza B QL RT-PCR Negative (Negative); RSV RNA, RT-PCR Negative (Negative); SARS-CoV-2 RNA PCR Negative (Negative)
[2024-12-02 20:01] VITALS: BP 142/73; PULSE 80; RESP 16; TEMP 36.4; O2SAT 100
[2024-12-02 20:11] VITALS: O2SAT 99
--- OUTSIDE RECORDS SUMMARY | 2024-12-02 20:47 | XMS_ITS | Encounter Summary ---
Author Organization [facility] Address [address] [place] [address] Phone Care Team Providers Care Road Crossing Guard Name Role Phone Esme Jaffe MD Unavailable [phone] Esme Jaffe MD Primary Care Provider + Jaun Roque DPM Unavailable [phone] No, Physician Unavailable Waqar Heller DPM Unavailable Daina Latif MD Unavailable [phone] Minda Stoddard MD Unavailable Encounter Details Date [...] and Family Once a week 04/02/2019 Attends Sabianism Services Never 04/02 Active Member of Clubs [...] on file 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 Gender Identity Not on file Sexual Orientation Straight 03/03/2021 11 :19 AM NURSE TECH documented as of this encounter Plan of Treatment Not on file documented as of this encounter Procedures Procedure Name Priority Date/Time Associated Diagnosis Comments SCAN - RADIOLOGY/IMAGING 11/30/2022 documented in this encounter Results * SCAN - RADIOLOGY/IMAGING (11/30/2022) Anatomical Region Laterality Modality Other us Provider Scanning Final Result documented in this encounter Visit Diagnoses Not on filedocumented in this encounter Care Teams Road Crossing Guard Relationship Specialty Start Date End Date Esme Jaffe MD PCP - General Internal Medicine 03/13/18 Esme Jaffe MD 03/05/18 Jaun Roque DPM Consulting Physician Orthotics 04/09/19 No, Physician 04/09/19 Waqar Heller DPM [id number] [place] [address] Consulting Physician Orthopedic Surgery 06/17/20 Daina Latif MD [address] [facility] [id number] [place] [address] Resident Psychiatry 07/29/24 08/23/24 Minda Stoddard MD [address] [facility] [id number] [place] [address] Resident Psychiatry 09/06/24 08/26/25 documented as of this encounter
--- OUTSIDE RECORDS SUMMARY | 2024-12-02 20:47 | XMS_ITS | Encounter Summary ---
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 Gender Identity Not on file Sexual Orientation Straight 03/03/2021 11 :19 AM GROUP PRODUCT MANAGER documented as of this encounter Plan of [...] COVID: Suspected 02/28/2021 03/06/2021 03/06/2021 2:08 PM GROUP PRODUCT MANAGER documented as of this encounter Care Teams Food Manager Relationship Specialty Start Date End Date Esme Jaffe MD PCP - General Internal Medicine 03/13/18 Esme Jaffe MD 03/05/18 Jaun Roque DPM Consulting Physician Orthotics 04/09/19 No, Physician 04/09/19 Waqar Heller DPM [address] [place] [address] Consulting Physician Orthopedic Surgery 06/17/20 Daina Latif MD [address] [id number] [place] [address] Resident Psychiatry 6/2/25 6/27/25 Minda Stoddard MD [address] [id number] [place] [address] Resident Psychiatry 09/06/24 08/26/25 documented as of this encounter
--- OUTSIDE RECORDS SUMMARY | 2024-12-02 20:47 | XMS_ITS | Clinical Summary ---
Author Organization [facility] Address [address] [place] [address] Care Team Providers Care Edge Beader Name Role Phone Esme Baez MD Unavailable Esme Baez MD Primary Care Provider + Jaun Roque DPM Unavailable [phone] No, Physician Unavailable Waqar Heller DPM Unavailable [...] friend states she will take her to [facility]. Suicidal ideation 07/16/2024 Allergic rhinitis 07/13/2024 Assessment [...] infection 07/08 Overview (07/08/2022): multiple episodes in [id number] with several hospitalizations and ICU stays. She [...] RA Assessment & Plan (04/26/2023 6:33 PM ENDOCRINOLOGIST): Today I am not seeing evidence of [...] epilepsy Assessment & Plan (04/02/2019 3:06 AM ENDOCRINOLOGIST): Continue home lamictal 500mg daily; was concern [...] Lamictal Assessment & Plan (03/08/2018 2:10 PM ENDOCRINOLOGIST): Diagnosed in February of 2014. 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 Lamictal recently increased to 400 mg P QD from 300 mg PO QD in setting of half hour long episodes of confusion, dysathria and lethargy. Follow with Dr. Guzman. - continue lamictal 400 mg PO QD Assessment & Plan (03/07/2018 1:20 PM ENDOCRINOLOGIST): Diagnosed in February of 2014. 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 Lamictal recently increased to 400 mg P QD from 300 mg PO QD in setting of half hour long episodes of confusion, dysathria and lethargy. Follow with Dr. Guzman. - continue lamictal 400 mg PO QD Assessment & Plan (03/06/2018 2:27 PM ENDOCRINOLOGIST): Diagnosed in February of 2014. 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 Lamictal recently increased to 400 mg P QD from 300 mg PO QD in setting of half hour long episodes of confusion, dysathria and lethargy. Follow with Dr. Guzman. - continue lamictal 400 mg PO QD Assessment & Plan (03/05/2018 12:39 PM ENDOCRINOLOGIST): Diagnosed in February of 2014. MRI in [...] 11/19/2017 Current chronic use of systemic steroids [facility] Preventative health care 08/18/2017 Callus of foot [...] 05/29/2010 Assessment & Plan (04/26/2023 11:17 AM ENDOCRINOLOGIST): Since she seems to have difficulty with [...] 11/28/2006 Assessment & Plan (04/02/2019 3:05 AM ENDOCRINOLOGIST): Not on meds at home - will [...] 04/01/201906/27 Assessment & Plan (04/01/2019 2:45 PM ENDOCRINOLOGIST): -right lower leg consistent with cellulitis -she has failed outpatient treatment with keflex and is having some systemic symptoms which pose concern for sepsis -recommended she go to [facility] ER for further evaluation, IV antibiotics, and [...] 5 Assessment & Plan (03/22/2018 2:59 PM ENDOCRINOLOGIST): Hx of chronic R lower ext foot [...] patient. Assessment & Plan (03/21/2018 8:51 PM ENDOCRINOLOGIST): Hx of chronic R lower ext foot [...] 019 Assessment & Plan (03/22/2018 2:55 PM ENDOCRINOLOGIST): Has been taking medrol 2mg daily, will cont. Xeljanz on hold with active infection. Assessment & Plan (03/21/2018 8:43 PM ENDOCRINOLOGIST): Has been taking medrol 2mg daily, will cont. Xeljanz on hold with active infection. Assessment & Plan (03/08/2018 2:10 PM ENDOCRINOLOGIST): RA diagnosed in 1975. On halfway steroid treatment, currently taking Merol 4 mg [...] following Assessment & Plan (03/07/2018 1:20 PM ENDOCRINOLOGIST): RA diagnosed in 1975. On halfway steroid treatment, currently taking Merol 4 mg [...] hospital Assessment & Plan (03/06/2018 2:27 PM ENDOCRINOLOGIST): RA diagnosed in 1975. 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 - C. Diff negative Assessment & Plan (03/06/2018 2:27 PM ENDOCRINOLOGIST): Prolonged infection from . - check C. Diff toxin Assessment & Plan (03/05/2018 12:53 PM ENDOCRINOLOGIST): Prolonged infection from . - check C. Diff toxin Encounters Date Type Department Care Team Description 11/26/2024 9:00 AM CDT Procedure visit [facility] [address] [place] [address] [address] [place] [address] Ifeoma Farias PA Severe episode of recurrent major depressive disorder, without psychotic features (HCC) (Primary Dx) 11/20/2024 3:40 PM CDT Office Visit [facility] [facility] [address], [address] [place] [phone] Dionna Comer NP Confusion (Primary Dx) 11/15/2024 Telephone [facility] [address] [facility] [address] [place] [phone] Andres Burroughs RPh 11/13/2024 9:00 AM CDT Procedure visit [facility] [address] [facility] [address] [place] [address] Nova Florez MD Severe episode of recurrent major depressive disorder, without psychotic features (HCC) (Primary Dx) 11/11/2024 8:45 AM CDT Office Visit [facility] [address] [place] [address] Minda Stoddard MD Severe episode of recurrent major depressive disorder, without psychotic features (HCC) (Primary Dx); Moderate episode of recurrent major depressive disorder (HCC) 10/31/2024 Orders Only [facility] [address] [facility] [address] [place] [address] Esme Baez MD 10/30/2024 9:00 AM CDT Procedure visit [facility] [address] [facility] [address] [place] [phone] Nova Florez MD Severe episode of recurrent major depressive disorder, without psychotic features (HCC) (Primary Dx) 10/14/2024 1:00 PM CDT Procedure visit [facility] [address] [facility] [address] [place] [address] Devonte Snow MD PhD Severe episode of recurrent major depressive disorder, without psychotic features (HCC) (Primary Dx) 10/09/2024 10:00 AM CDT Office Visit [facility] Rheumatology [address] [facility] [address] [place] [phone] Sabi Horton MD Seropositive rheumatoid arthritis of multiple joints (HCC) (Primary Dx); High risk medications (not anticoagulants) long-term use; Thoracic back pain, unspecified back pain laterality, unspecified chronicity 10/07/2024 1:00 PM CDT Procedure visit [facility] [address] [place] [address] [address] [place] [address] Devonte Snow MD PhD Severe episode of recurrent major depressive disorder, without psychotic features (HCC) (Primary Dx) 10/07/2024 9:15 AM CDT Office Visit [facility] [address] [facility] [address] [place] [phone] Minda Stoddard MD Severe episode of recurrent major depressive disorder, without psychotic features (HCC) (Primary Dx) 09/30/2024 1:00 PM CDT Procedure visit [facility] [address] [place] [address] [address] [place] [address] Devonte Snow MD PhD Severe episode of recurrent major depressive disorder, without psychotic features (HCC) (Primary Dx) 2024 1:00 PM CDT Procedure visit [facility] [address] [place] [address] [address] [place] [phone] Devonte Snow MD PhD Severe episode of recurrent major depressive disorder, without psychotic features (HCC) (Primary Dx) 2024 8:30 AM CDT Office Visit [facility] Medicine Epilepsy [facility] 6th [address] [place] [phone] Joselito Guzman MD PhD Temporal lobe epilepsy (HCC) (Primary Dx) 09/12/2024 1:00 PM CDT Procedure visit [facility] Psych[facility]ry [address] [place] [address] [address] [place] [phone] Devonte Snow MD PhD Severe episode of recurrent major depressive disorder, without psychotic features (HCC) (Primary Dx) 09/12/2024 Documentation [facility] [address] [facility] [address] [place] [phone] Minda Stoddard MD 09/09/2024 1:00 PM CDT Procedure visit [facility] Psych[facility] [address] [place] [address] [place] [phone] Devonte Snow MD PhD Severe episode of recurrent major depressive disorder, without psychotic features (HCC) (Primary Dx) 09/06/2024 9:00 AM CDT Office Visit [facility] [address] [facility] [address] [place] [phone] Minda Stoddard MD Moderate episode of recurrent major depressive disorder (HCC) (Primary Dx) 09/05/2024 1:00 PM CDT Procedure visit [facility] Psych[facility] [address] [place] [address] [address] [place] [phone] Devonte Snow MD PhD Severe episode of recurrent major depressive disorder, without psychotic features (HCC) (Primary Dx) 09/02/2024 1:00 PM CDT Procedure visit [facility] [address] [place] [address] [address] [place] [phone] Devonte Snow MD PhD Severe episode of recurrent major depressive disorder, without psychotic features (HCC) (Primary Dx) from Last 3 Months Immunizations Immunization Administration Dates Next Due COVID-19 mRNA (Jiahe) 0.3 m L (30 mcg) vaccine (12 [...] C. difficile colitis multiple ep isodes in [id number] with several hospitalizations and ICU stays. Hx [...] = 0.6 oz pur e alcohol) rarely [facility] Utilities Answer Date Recorded In the past [...] often do you attend chur ch or restorationist services? Never 07/14/2024 Do you belong to any clubs o r organizations such as restorationism groups, unions, fraternal or athletic groups, or [...] staff should administer the PHQ-9) 6 03/08/2022 [facility] - Occupational Stress Questionnaire Answer Date Recorded [...] any time in the past 12 m [facility], were you homeless or living in a nursing home (including now)? No 07/14/2024 AUDIT-C Answer Date [...] on file Legal Sex Female 11:34 PM ENDOCRINOLOGIST Gender Identity Not on file Sexual Orientation Straight 03/03/2021 11 :19 AM ENDOCRINOLOGIST Obstetrics History Last Filed Vital Signs Vital [...] history exists Medical Devices Implanted Type Area Chef Concierge Device Identifier Shelf Expiration Date Model / [...] CDT Steroid-induced osteoporosis COLONOSCOPY 01/26/2021 1:55 PM ENDOCRINOLOGIST from Last 3 Months or Most Recently [...] age 40, based on guidelines of the [employer] (ACR Practice Parameter for the Performance of Screening and Diagnostic Mammography) and [employer]. For women [...] Bone mineral density was performed on a [employer] Discovery Densitometer. Based on machine cross-calibration and [...] by the International Society of Clinical Densitometry. [id number] us Sabi Horton MD IMG DXA PROCEDURES Final Res ult * COLONOSCOPY (01/26/2021 1:55 PM ENDOCRINOLOGIST) Anatomical Region Laterality Modality Other Narrative Procedure Note Dionna Santacruz MD - 01/26/2021 1:55 PM CST ENDOSCOPY LAB Patient Name: Babs Parrish Procedure Date: 01/26/2021 1:55 PM Date of : 1955 Admit Type: Outpatient Age: 65 Gender: Female Attending MD: Dionna Santacruz M.D. Room: [facility] ENDOSCOPY ROOM 03 Note Status: Finalized Procedure: [...] The scope was passed under direct vision.The [id number] was introduced through the anusand advanced to the cecum, identified by appendiceal orifice and ileocecal valve. The colonoscopy was performed without difficulty. The patient tolerated the procedure well. Abdominal pressure wasutilized. The quality of the bowel preparation was evaluated using the BBPS ([place] Bowel Preparation Scale)with scores of: Right Colon [...] your results within this timeframe, please call [phone] regarding your results. - Contact Information: During normal business hours - Please call theNurse Coordinator: [phone] After hours, evening, nights, weekends and holidays- Please call the hospital kapok and cotton machine operator at and ask for the GI fellow union carpenter. - . Attending Participation: I personally performed the entire procedure. Electronically Signed By: Dionna Santacruz M.D. Dionna Santacruz M.D. 01/26/2021 2:26:29 PM Number of Addenda: 0 Note Initiated On: 01/26/2021 1:55 PM Dionna Santacruz MD ENDOSCOPY PROCEDURES Fin al Result from Last 3 Months or Most Recently Relevant to Health Maintenance Insurance UHC MEDICARE ADVANTAGE MEDICARE [facility] Address: [address] [address] [place] [address] [facility] PPO UHC MEDICARE ADVANTAGE [facility] Address: [address] [address] [place] [address] [facility] MEDICARE AET MEDICARE Advance Directives For more information, please contact: [phone] Documents on File Type Date Recorded 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 Expl anation ADVANCE DIRECTIVE 06/11/2021 12:32 PM Jalil r of Circuit Board Assembler-Medical Advance Directives and Living Will 03/31/2021 10:13 [...] 8:32 PM 04/05/2019 5:49 PM Care Teams Edge Beader Relationship Specialty Start Date End Date Esme Baez MD PCP - General Internal Medicine 03/13/18 Esme Baez MD 03/05/18 Jaun Roque DPM Consulting Physician Orthotics 04/09/19 No, Physician 04/09/19 Waqar Heller DPM [address] [place] [address] Consulting Physician Orthopedic Surgery 06/17/20 Minda Stoddard MD [address] [id number] [place] [address] Resident Psychiatry 09/06/24 08/26/25
[2024-12-02 21:32] LABS: Hematocrit 42.0 % (37.0-47.0); Hemoglobin 13.9 g/dL (12.0-15.0); Immature Granulocyte Percent A 0.5 % (0-0.5); Lymphocytes Absolute Auto 1.66 K/mm3 (0.9-3.2); Mean Corpuscular HGB Conc 33.1 g/dl (32-36); Mean Corpuscular Hemoglobin 30.2 pg (26-34); Mean Corpuscular Volume 91.1 fl (80-100); Nucleated Red Blood Cells Absolute Auto 0.000 K/mm3 (0.0-0.012); Nucleated Red Blood Cells Perc 0.0 % (0.0-0.2); Platelet Count Result 429 k/mm3 (150-375); Red Blood Count 4.61 M/mm3 (4.2-5.4); White Blood Count 7.7 K/mm3 (4.5-10.0)
[2024-12-02 21:42] LABS: Alanine Aminotransferase 28 U/L (6-35); Albumin Level 5.0 g/dL (3.5-5.1); Alkaline Phosphatase 84 U/L (38-126); Anion Gap 12 mmol/L (4-12); Aspartate Amino Transferase 39 U/L (14-36); Bilirubin,Total 0.6 mg/dL (0.2-1.3); Blood Urea Nitrogen 21 mg/dL (7-17); Calcium 9.8 mg/dL (8.4-10.2); Carbon Dioxide 22 mmol/L (22-30); Chloride 104 mmol/L (98-107); Estimated CRCL calculation 44 ml/min; Estimated Glomerular Filt Rate > 60; Glucose 89 mg/dL (65-110); Potassium 4.6 mmol/L (3.4-5.0); Sodium 138 mmol/L (137-145); Total Protein 8.8 g/dL (6.3-8.2)
[2024-12-02 21:43] LABS: INR 1.0; Prothrombin Time 13.2 Seconds (11.1-14.7)
[2024-12-02 21:44] LABS: Partial Thromboplastin Time 27.5 Seconds (22.3-36.8)
[2024-12-02 21:51] LABS: NT Pro B Type Natriuretic Pept 131 pg/mL (19.9-100)
== END 2024-12-02 23:57 | disposition home or self-care (01) ==
PROVIDERS: Nurse Practitioner Family; Emergency Provider Physician Assistant
DX: J40 Bronchitis, not specified as acute or chronic (principal); Z20.822 Contact with and (suspected) exposure to COVID-19; I10 Essential (primary) hypertension; E78.5 Hyperlipidemia, unspecified; M81.0 Age-related osteoporosis without current pathological fracture; M06.9 Rheumatoid arthritis, unspecified; Z85.43 Personal history of malignant neoplasm of ovary; Z86.2 Personal history of diseases of the blood and blood-forming organs and certain disorders involving the immune mechanism; Z87.442 Personal history of urinary calculi; Z96.643 Presence of artificial hip joint, bilateral; Z90.710 Acquired absence of both cervix and uterus; Z79.899 Other long term (current) drug therapy; Z79.622 Long term (current) use of Janus kinase inhibitor
CPT/HCPCS: 36415; 71046; 71275; 80053; 83880; 85025; 85380; 85610; 85730; 87637; 99284; Q9967